=== PATIENT | female | born 1960 | race Caucasian/White ===

== ENCOUNTER 2016-06-11 21:54 | Emergency (ER) | payer OTHER ==
[~2016-06-11] VITALS: Ht 160 cm; Wt 54.8 kg
[~2016-06-11 21:54] MED LIST: ASCO500T3 PO; PRLSR20 PO; QUET1TAB32 PO; QUET1TAB37 PO
[2016-06-11 21:59] VITALS: O2SAT 97; Ht 160 cm; Wt 54.8 kg
[2016-06-11] MEDS ORDERED: SODIUM CHLORIDE 0.9% 1000ML 1,000 ML IV STA (22:36)
[2016-06-11 22:50] LABS: BASO % 0.4 %; BASO ABS # 0.04 K/uL (0-0.2); COMPLETE YES; EOS % 0.4 %; HEMATOCRIT 48.1 % (37-47); IG% 0.4 %; LYMPH % 26.7 %; LYMPH ABS # 3.04 K/uL (1.2-3.4); MEAN CELL VOLUME 88.7 fL (80-100); MEAN CORPUSCULAR HEMOGLOBIN 31.2 pg (25-34); MEAN CORPUSCULAR HGB CONC 35.1 g/dl (32-36); MEAN PLATELET VOLUME 12.6 fL (7.4-10.4); NEUT % 61.1 %; PLATELET COUNT 192 K/uL (130-400); RED BLOOD COUNT 5.42 M/uL (4.2-5.4); WHITE BLOOD COUNT 11.37 K/uL (4.8-10.8)
--- NOTE | 2016-06-11 23:03 | DIAGNOSTIC IMAGING REPORT ---
SINGLE VIEW CHEST CLINICAL HISTORY: Palpitations. FINDINGS: An AP, portable, upright chest radiograph is compared to study dated 04/22/2016 and correlated with chest CT dated 09/22/2015. The examination is degraded by portable technique and patient rotation. The cardiomediastinal silhouette is unremarkable. The lungs and pleural spaces are clear. No pneumothorax is seen. The skeletal structures appear osteopenic. The bony thorax is grossly intact. IMPRESSION: No active disease in the chest. Electronically signed by: Yung Aguilera M.D. 06/11/2016 11:01 PM Dictated Date/Time: 06/11/2016 11:00 PM
[2016-06-11 23:32] LABS: ALB/GLOB RATIO 0.9 (0.9-2); ALKALINE PHOSPHATASE 85 U/L (45-117); ALT/SGPT 69 U/L (12-78); BLOOD UREA NITROGEN 15 mg/dl (7-18); BUN/CREATININE RATIO 17.6 (10-20); CARBON DIOXIDE 29 mmol/L (21-32); CHLORIDE 102 mmol/L (98-107); CREATININE 0.85 mg/dl (0.60-1.20); GLUCOSE 93 mg/dl (70-99)
[2016-06-11 23:37] LABS: POTASSIUM 3.9 mmol/L (3.5-5.1); SODIUM 144 mmol/L (136-145)
[2016-06-11 23:57] LABS: AST/SGOT 71 U/L (15-37); MAGNESIUM 2.2 mg/dl (1.8-2.4)
[2016-06-12] MEDS ORDERED: SODIUM CHLORIDE 0.9% 500ML 500 ML IV STA ×2 (00:45→01:29)
[2016-06-12] MEDS ORDERED: hydrOXYzine HCL 25 MG TAB PO STA (01:01)
[2016-06-12 01:07] LABS: URINE APPEARANCE CLEAR (CLEAR); URINE BILIRUBIN NEG (NEG); URINE COLOR YELLOW; URINE NITRITE NEG (NEG); URINE PH 6.5 (4.5-7.5); UROBILINOGEN NEG (NEG); ZZUR CULT IF INDIC CLEAN CATCH NO
[2016-06-12 01:10] LABS: MANUAL MICROSCOPIC REQUIRED? NO; REVIEW REQ? NO
[2016-06-12 01:25] LABS: BENZODIAZEPINE, URINE NEG (NEG); COCAINE,URINE NEG (NEG); PHENCYCLIDINE, URINE NEG (NEG)
[2016-06-12] MEDS ORDERED: ANT25 PO (02:56)
--- NOTE | 2016-06-12 02:57 | EMERGENCY ROOM VISIT NOTE ---
History First contact with patient: 22:25 Chief Complaint: CHEST PAIN Stated Complaint: ANXIETY, CHEST PAIN Nursing Triage Summary: arrived via amb with als. pt states she was on ativan but was recently taken off of it. today smoked twice as many cigarettes as usual and had an " anxiety attack."denies cp or sob at present. History of Present Illness The patient is a 55 year old female who presents to the Emergency Department via EMS for evaluation of her palpitations and anxiety. The patient reports a long-standing history of anxiety. She was on Ativan for several years, but this medication was discontinued in March secondary to dependence issue. She reports that she is not been able to sleep since. She is tried multiple medications in replacement which have not been effective. She admits to drinking a few beers a few days ago, but denies any other drug or substance use. She reports that she has smoked cigarettes for the last few days which has caused palpitations. She is aware of this as it has happened before. She reports worsening anxiety this evening which seemed to worsen her palpitations as well. She is tried nothing [id number] for symptoms. She denies any suicidal or homicidal ideation. She rates her current discomfort as a 4/10. Patient denies any fevers, chills, recent illness, headaches, nausea, vomiting, hematuria, or dysuria. She does report that she had diarrhea earlier today after drinking milk. Review of Systems A complete 10-point Review of Systems was discussed with the patient, with pertinent positives and negatives listed in the History of Present Illness. All remaining Review of Systems questions can be considered negative unless otherwise specified. Past Medical/Surgical History Medical Problems: (1) Benzodiazepine withdrawal with complication (2) DVT (deep venous thrombosis) (3) Gastritis (4) H pylori ulcer (5) Irritable bowel syndrome (6) past psych meds (7) Seizure-like activity Surgical Problems: (1) History of cholecystectomy Family History Patient reports no known family medical history. Social History Smoking Status: Current Every Day Smoker Smokeless Tobacco Use: No Alcohol Use: occasionally Drug Use: none Marital Status: Housing Status: lives with family Occupation Status: employed Current/Historical Medications Scheduled Meclizine HCl (Meclizine HCl), 25 MG PO HS Allergies Coded Allergies: Trazodone (Verified Allergy, Severe, TACHYCARDIC, 06/11/16) Carbohydrate (Verified Allergy, Intermediate, MAKES HEART RACE, 05/06/16) Penicillins (Verified Allergy, Unknown, ., 05/06/16) Sulfa Antibiotics (Verified Allergy, Unknown, "SULFA DRUGS", 05/06/16) Codeine (Verified Adverse Reaction, Unknown, GI UPSET, 05/06/16) Uncoded Allergies: CIGARETTES (Allergy, Severe, SHORTNESS OF BREATH, 04/22/16) Physical Exam Vital Signs Date Time Temp Pulse Resp B/P Pulse Ox O2 Delivery O2 Flow Rate FiO2 06/12/16 02:59 36.8 100 15 115/68 95 06/12/16 02:48 100 15 115/68 95 Room Air 06/12/16 02:10 100 06/12/16 01:39 96 15 06/12/16 01:34 100 22 06/12/16 01:29 99 15 06/12/16 01:28 111/68 06/12/16 01:24 97 20 95 06/12/16 01:19 98 21 06/12/16 01:14 160 18 97 06/12/16 01:09 102 17 06/12/16 01:07 111/68 06/12/16 01:04 99 14 97 06/12/16 00:59 103 16 97 06/12/16 00:59 104 21 120/68 95 Room Air 06/12/16 00:54 110 14 94 06/12/16 00:44 102 23 06/12/16 00:39 100 21 06/12/16 00:34 101 21 06/12/16 00:29 102 21 121/67 95 06/12/16 00:24 102 21 06/12/16 00:19 101 22 06/12/16 00:14 101 21 06/12/16 00:09 99 22 06/12/16 00:04 100 19 06/11/16 23:59 100 23 06/11/16 23:54 98 22 06/11/16 23:49 101 22 06/11/16 23:44 100 21 06/11/16 23:39 103 15 81 06/11/16 23:34 100 20 97 06/11/16 23:29 102 21 97 06/11/16 23:24 103 22 97 06/11/16 23:19 100 14 98 06/11/16 23:14 98 13 99 06/11/16 23:09 104 18 94 06/11/16 23:04 106 16 99 06/11/16 22:59 103 22 96 06/11/16 22:54 106 12 94 06/11/16 22:49 104 12 95 06/11/16 22:44 105 14 96 06/11/16 22:39 102 17 96 06/11/16 22:34 104 14 98 06/11/16 22:29 106 20 96 06/11/16 22:24 106 16 95 06/11/16 22:19 108 21 97 06/11/16 22:14 105 14 96 06/11/16 22:09 105 16 95 06/11/16 22:04 97 Room Air 06/11/16 22:04 103 15 96 06/11/16 22:02 113 06/11/16 21:59 97 Room Air 06/11/16 21:59 120/68 06/11/16 21:59 36.8 108 20 120/68 97 Room Air Pain Rating (0-10): 4 Physical Exam VITAL SIGNS - Vital signs and nursing notes were reviewed. GENERAL - 55-year-old female appearing her stated age who is in no acute distress. Communicates well with provider and answers questions appropriately. HEAD - NC/AT. EYES - PERRL with EOMI bilaterally. Sclera anicteric. Palpebral conjunctiva pink and moist with no injection noted. EARS - No deformities of external structures noted on gross examination bilaterally. No pain elicited with palpation of the tragus bilaterally. External auditory canals without discharge or otorrhea. Tympanic membranes pearly meraz without retraction or bulging. NOSE - Midline and without cyanosis. No epistaxis or purulent drainage noted. Septum midline without deviation or septal hematoma noted. MOUTH/OROPHARYNX - Without perioral cyanosis. Buccal mucosa pink and moist and without leukoplakia. Tongue midline with equal elevation of palate bilaterally. No tonsillar hypertrophy, erythema, or exudates noted. Good dentition noted. NECK - Neck with FROM. Supple to palpation. LUNGS - Chest wall symmetric without accessory muscle use, intercostals retractions, or central cyanosis. Normal vesicular breath sounds CTA B/L. No wheezes, rales, or rhonchi appreciated. CARDIAC - RRR with S1/S2. No murmur, rubs, or gallops appreciated. No reproducible tenderness to palpation appreciated over the anterior chest wall. ABDOMEN - Abdominal contour flat and without pulsations or visible masses. BS normoactive all four quadrants. No tenderness, palpable masses, hepatosplenomegaly, or ascites noted. EXTREMITIES - No clubbing or peripheral cyanosis. No pretibial edema present. +3 /5 radial and dorsalis pedis pulses palpated throughout. +5/5 strength noted in UE/LE bilaterally. NEUROLOGIC - Cranial nerves II through XII grossly intact. Sensory intact to light touch throughout. PSYCH - A&Ox3 and cooperates fully with examiner. Patient appears fixated on discontinuation of her Ativan. She reports she's been unable to sleep. She denies any suicidal or homicidal ideations. She declines offers for Benadryl and Atarax to help with her symptoms. She reports that these medications do not work. Her rate and volume of speech is appropriate. She is not tangential. Medical Decision & Procedures ER Provider Diagnostic Interpretation: Radiological imaging and reports were reviewed by myself. Radiologist's Interpretation as follows: SINGLE VIEW CHEST CLINICAL HISTORY: Palpitations. FINDINGS: An AP, portable, upright chest radiograph is compared to study dated 04/22/2016 and correlated with chest CT dated 09/22/2015. The examination is degraded by portable technique and patient rotation. The cardiomediastinal silhouette is unremarkable. The lungs and pleural spaces are clear. No pneumothorax is seen. The skeletal structures appear osteopenic. The bony thorax is grossly intact. IMPRESSION: No active disease in the chest. Laboratory Results 06/11/16 21:30 Red Blood Count 5.42, Mean Corpuscular Volume 88.7, Mean Corpuscular Hemoglobin 31.2, Mean Corpuscular Hemoglobin Concent 35.1, Mean Platelet Volume 12.6, Neutrophils (%) (Auto) 61.1, Lymphocytes (%) (Auto) 26.7, Monocytes (%) (Auto) 11.0, Eosinophils (%) (Auto) 0.4, Basophils (%) (Auto) 0.4, Neutrophils # (Auto ) 6.96, Lymphocytes # (Auto) 3.04, Monocytes # (Auto) 1.25, Eosinophils # (Auto ) 0.04, Basophils # (Auto) 0.04 06/11/16 21:30 Test 06/11/16 21:30 06/12/16 00:55 06/12/16 01:43 06/12/16 01:50 White Blood Count 11.37 K/uL (4.8-10.8) Red Blood Count 5.42 M/uL (4.2-5.4) Hemoglobin 16.9 g/dL (12.0-16.0) Hematocrit 48.1 % (37-47) Mean Corpuscular Volume 88.7 fL (80-100) Mean Corpuscular Hemoglobin 31.2 pg (25-34) Mean Corpuscular Hemoglobin Concent 35.1 g/dl (32-36) Platelet Count 192 K/uL (130-400) Mean Platelet Volume 12.6 fL (7.4-10.4) Neutrophils (%) (Auto) 61.1 % Lymphocytes (%) (Auto) 26.7 % Monocytes (%) (Auto) 11.0 % Eosinophils (%) (Auto) 0.4 % Basophils (%) (Auto) 0.4 % Neutrophils # (Auto) 6.96 K/uL (1.4-6.5) Lymphocytes # (Auto) 3.04 K/uL (1.2-3.4) Monocytes # (Auto) 1.25 K/uL (0.11-0.59) Eosinophils # (Auto) 0.04 K/uL (0-0.5) Basophils # (Auto) 0.04 K/uL (0-0.2) RDW Standard Deviation 50.1 fL (36.4-46.3) RDW Coefficient of Variation 15.4 % (11.5-14.5) Immature Granulocyte % (Auto) 0.4 % Immature Granulocyte # (Auto) 0.04 K/uL (0.00-0.02) Anion Gap 13.0 mmol/L (3-11) Est Creatinine Clear Calc Drug Dose 60.4 ml/min Estimated GFR () 88.2 Estimated GFR (Non- 76.1 BUN/Creatinine Ratio 17.6 (10-20) Calcium Level 9.0 mg/dl (8.5-10.1) Magnesium Level 2.2 mg/dl (1.8-2.4) Total Bilirubin 0.8 mg/dl (0.2-1) Aspartate Amino Transf (AST/SGOT) 71 U/L (15-37) Alanine Aminotransferase (ALT/SGPT) 69 U/L (12-78) Alkaline Phosphatase 85 U/L (45-117) Creatine Kinase MB 11.7 ng/ml (0.5-3.6) Creatine Kinase MB Ratio (0-3.0) Total Protein 8.2 gm/dl (6.4-8.2) Albumin 3.8 gm/dl (3.4-5.0) Globulin 4.4 gm/dl (2.5-4.0) Albumin/Globulin Ratio 0.9 (0.9-2) Lipase 275 U/L (73-393) Thyroid Stimulating Hormone (TSH) 2.850 uIu/ml (0.300-4.500) Urine Color YELLOW Urine Appearance CLEAR (CLEAR) Urine pH 6.5 (4.5-7.5) Urine Specific [place] 1.010 (1.000-1.030) Urine Protein NEG (NEG) Urine Glucose (UA) NEG (NEG) Urine Ketones NEG (NEG) Urine Occult Blood NEG (NEG) Urine Nitrite NEG (NEG) Urine Bilirubin NEG (NEG) Urine Urobilinogen NEG (NEG) Urine Leukocyte Esterase TRACE (NEG) Urine WBC (Auto) 1-5 /hpf (0-5) Urine RBC (Auto) 0-4 /hpf (0-4) Urine Hyaline Casts (Auto) 1-5 /lpf (0-5) Urine Epithelial Cells (Auto) 5-10 /lpf (0-5) Urine Bacteria (Auto) NEG (NEG) Urine Opiates Screen NEG (NEG) Urine Methadone, Qualitative NEG (NEG) Urine Barbiturates NEG (NEG) Urine Phencyclidine (PCP) Level NEG (NEG) Ur Amphetamine/Methamphetamine NEG (NEG) MDMA (Ecstasy) Screen NEG (NEG) Urine Benzodiazepines Screen NEG (NEG) Urine Cocaine Metabolite NEG (NEG) Urine Marijuana (THC) NEG (NEG) Total Creatine Kinase 1086 U/L (26-192) Bedside Troponin I 0.000 ng/ml (0-0.045) Medications Administered Medications (Trade) Dose Ordered Sig/Rosalinda Route Start Time Stop Time Status Last Admin Dose Admin Sodium Chloride 1,000 ml @ 999 mls/hr Q1H1M STAT IV 06/11/16 22:36 06/11/16 23:36 DC 06/11/16 22:45 999 MLS/HR Sodium Chloride (Nss 500ml) 500 ml @ 999 mls/hr Q31M STAT IV 06/12/16 00:45 06/12/16 01:15 DC 06/12/16 00:57 999 MLS/HR Hydroxyzine HCl 25 mg 25 mg NOW STAT PO 06/12/16 01:01 06/12/16 01:02 DC 06/12/16 01:06 25 MG Sodium Chloride (Nss 500ml) 500 ml @ 999 mls/hr Q31M STAT IV 06/12/16 01:29 06/12/16 01:59 DC 06/12/16 01:33 999 MLS/HR Procedure Patient was placed on the attic fans mechanic and monitored throughout the entire extent of their stay. In addition, the patient's pulse oximetry was monitored throughout the entire stay. Any abnormalities or aberrancies were addressed appropriately. ECG Indication: chest pain Rate (beats per minute): 104 Rhythm: sinus tachycardia Findings: no acute ischemic change, no ectopy Change: no significant change (from 05/06/2016.) ED Course Patient was seen and evaluated by myself. Previous emergency department visit notes and hospitalizations were reviewed. Labs were drawn, saline lock in place. The patient was hydrated with a 1000 mL normal saline bolus. She declines any medication for anxiety at this point when offered Benadryl or Vistaril. Chest x-ray and EKG were obtained. Laboratory results demonstrate a mild leukocytosis. The patient is not anemic. There are no significant electrolyte abnormalities. Troponin was negative. CPK was mildly elevated at 2062. Patient was reevaluated and is complaining of some mild tightness in her chest. Repeat EKG was completely unremarkable. She was hydrated with an additional 1000 mL normal saline bolus. Repeat troponin and CPK levels were obtained. Case was reviewed with my attending physician who agrees with the diagnostic approach and treatment plan. The patient does admit to having diarrhea over the last 24 hours secondary to drinking milk. She denies any other substance use or illicit drug use. Patient's repeat troponin was negative again. Repeat CPK has decreased in half. This information was relayed to the patient who acknowledges understanding. She was provided Vistaril to be used at home for bed. She was encouraged to follow up with her primary care provider and psychiatrist from today's visit. She was educated on worrisome symptoms for return visit to the emergency department. Patient discharged home afebrile and in good condition. Medical Decision Given the patient's presentation and stated complaints, I did elect to perform the above-mentioned workup. The patient presents today complaining of palpitations as well as anxiety. She is been discontinued from her Ativan recently. She denies any suicidal or homicidal ideation. She has no fever leukocytosis. Her exam is otherwise unremarkable. She denies any chest pain initially. She does admit to having some diarrhea. She has a mild leukocytosis. She has no reproducible pain whatsoever. CPK was elevated which did respond after IV fluid hydration. Cardiac enzymes 2 were negative. She did receive Vistaril and was resting in the emergency department. She was actually sleeping for the majority of her visit. The patient was offered Vistaril for home which she takes except. She will follow-up with her psychiatrist and primary care provider from today's visit. She will return for any changing or worsening symptoms. Patient discharged home in good condition. In the evaluation and treatment of this patient, the following differential diagnoses were considered: [place], ASC, Dysrhythmia, Angina, Mediastinitis, GERD, Esophagitis, PE, Pneumonia, Bronchitis, Costochondritis, Rib Fracture, Zoster. Impression Primary Impression: Palpitations Additional Impression: Anxiety Departure Information Dispostion Home / Self-Care Condition GOOD Prescriptions Meclizine HCl (Meclizine HCl) 25 Mg Tab 25 MG PO HS for 7 Days, #7 0 Refills Prov: Jesus Meyer PA-C 06/12/16 Referrals Adarsh Ruiz III, CRNP (PCP) Patient Instructions My [facility] [address] Additional Instructions You have been treated in the Emergency Department for your palpitations and anxiety. For pain control, you can use the following [id number] medicines (if >12 yo): - Regular strength (325mg/tab) Tylenol (acetaminophen) 2 tabs every 4-6 hours as needed. Do not exceed 12 tablets in a 24 hour period. Avoid taking more than 4 grams (4000 mg) of Tylenol per day. This includes any other sources of acetaminophen you may take on a regular basis. - Regular strength (200 mg/tab) Advil (ibuprofen) 1-2 tabs every 4-6 hours as needed. Do not exceed a dose of 3200 mg per day. You should schedule a follow-up appointment with your Primary Care Provider in 2 -3 days for further evaluation from today's Emergency Department visit. Return to the Emergency Department if your current symptoms worsen despite treatment course outlined above, or if you develop any of the following symptoms : worsening chest pain, associated jaw/arm pain, nausea, dizziness, shortness of breath, bloody cough, or fainting. Problem Qualifiers
[2016-06-12 02:59] VITALS: BP 115/68; PULSE 100; TEMP 36.8; O2SAT 95
== END 2016-06-12 03:00 | disposition home or self-care (01) ==
LOC: EDBD 21:54 → C.EDC 21:55
DX: R00.2 Palpitations (principal); F17.210 Nicotine dependence, cigarettes, uncomplicated; F41.9 Anxiety disorder, unspecified

== ENCOUNTER 2016-06-12 12:04 | Emergency (ER) | payer OTHER ==
[~2016-06-12] VITALS: Ht 160 cm; Wt 50.0 kg
[~2016-06-12 12:04] MED LIST changes: +ANT25 PO
[2016-06-12 12:10] VITALS: TEMP 37; Ht 160 cm; Wt 50.0 kg
[2016-06-12 12:26] VITALS: O2SAT 96
[2016-06-12] MEDS ORDERED: CLONIDINE HCL 0.3 MG/24 HR TRANSDERM SYS TD STA (13:17)
[2016-06-12] MEDS ORDERED: NICOTINE 21 MG/24 HR TDSY TD STA (13:17)
[2016-06-12 13:24] LABS: BASO % 0.5 %; BASO ABS # 0.04 K/uL (0-0.2); COMPLETE YES; EOS % 0.8 %; HEMATOCRIT 43.6 % (37-47); IG% 0.5 %; LYMPH % 40.1 %; LYMPH ABS # 3.51 K/uL (1.2-3.4); MEAN CELL VOLUME 89.7 fL (80-100); MEAN CORPUSCULAR HEMOGLOBIN 30.5 pg (25-34); MEAN CORPUSCULAR HGB CONC 33.9 g/dl (32-36); MEAN PLATELET VOLUME 11.9 fL (7.4-10.4); MONO % 9.7 %; NEUT % 48.4 %; PLATELET COUNT 167 K/uL (130-400); RED BLOOD COUNT 4.86 M/uL (4.2-5.4); WHITE BLOOD COUNT 8.75 K/uL (4.8-10.8)
[2016-06-12] MEDS ORDERED: SODIUM CHLORIDE 0.9% 1000ML 1,000 ML IV STA (13:25)
[2016-06-12] MEDS ORDERED: DiphenhydrAMINE HCL 50 MG/ML VIAL IV STA (13:25)
[2016-06-12] MEDS ORDERED: NICOTINE POLACRILEX 2 MG GUM MT PRN (13:30)
[2016-06-12 13:32] LABS: ALT/SGPT 59 U/L (12-78); AST/SGOT 53 U/L (15-37); BLOOD UREA NITROGEN 10 mg/dl (7-18); BUN/CREATININE RATIO 11.8 (10-20); CALCIUM 8.1 mg/dl (8.5-10.1); CARBON DIOXIDE 25 mmol/L (21-32); CHLORIDE 110 mmol/L (98-107); CREATININE 0.81 mg/dl (0.60-1.20); GLUCOSE 80 mg/dl (70-99); POTASSIUM 3.8 mmol/L (3.5-5.1); SODIUM 144 mmol/L (136-145)
[2016-06-12 13:34] LABS: URINE APPEARANCE CLEAR (CLEAR); URINE BILIRUBIN NEG (NEG); URINE COLOR YELLOW; URINE NITRITE NEG (NEG); URINE SPECIFIC GRAVITY 1.017 (1.000-1.030); UROBILINOGEN NEG (NEG)
[2016-06-12 13:39] LABS: MANUAL MICROSCOPIC REQUIRED? NO; REVIEW REQ? NO
[2016-06-12 13:44] LABS: ALB/GLOB RATIO 0.9 (0.9-2); ALKALINE PHOSPHATASE 69 U/L (45-117)
[2016-06-12 13:54] LABS: BENZODIAZEPINE, URINE NEG (NEG); COCAINE,URINE NEG (NEG); PHENCYCLIDINE, URINE NEG (NEG)
[2016-06-12] MEDS ORDERED: hydrOXYzine HCL 25 MG TAB PO STA ×2 (14:50→20:08)
--- NOTE | 2016-06-12 18:59 | EMERGENCY ROOM VISIT NOTE ---
History Report prepared by Wilner: Joleen Amaya Under the Supervision of: Dr. Jamie Kolb M.D. First contact with patient: 12:50 Chief Complaint: OTHER COMPLAINT Stated Complaint: PALPITATIONS Nursing Triage Summary: Patient arrived via EMS with complaints of waking up this morning with palpitations and "uncontrolled shakes" per pt report. Was seen here yesterday in the ED for the same complaint and received 1mg of Ativan and was sent home. Patient is talking on phone to someone at this time, "I am not drug seeking, I am at the hospital, I can't smoke." Swearing multiple times on the phone. While she was talking on phone the shaking stopped. Denies pain, just complains of the palpitations. Patient was shaking uncontrollably on arrival and stated "just give me something for the shakes." Patient refused to take bra off while changing into gown. History of Present Illness The patient is a 55 year old female who presents to the Emergency Room for a mental health evaluation. The patient was seen in the ED yesterday for palpitations and shaking. She received 1 mg of Ativan and was discharged home. Today the patient reports that her symptoms have continued. She notes poor circulation in her legs but denies numbness or tingling. She has continued to experience shaking and "vibrations" in her legs. She is a current 2 PPD smoker. She has a history of depression and states that she feels depressed now. The patient does not currently take any medications for her depression. She was on Ativan in the past, but taken off of it in March due to dependency. The patient states that she wants to . She states, "I am not benzo seeking, I am seeking....I need counseling." She has had a suicidal plan in the past, but has never followed through or acted on it. 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 Review of Systems See HPI for pertinent positives & negatives. A total of 10 systems reviewed and were otherwise negative. Past Medical & Surgical Medical Problems: (1) Benzodiazepine withdrawal with complication (2) DVT (deep venous thrombosis) (3) Gastritis (4) H pylori ulcer (5) Irritable bowel syndrome (6) past psych meds (7) Seizure-like activity Surgical Problems: (1) History of cholecystectomy Family History Patient reports no known family medical history. Social History Smoking Status: Current Every Day Smoker Alcohol Use: occasionally Drug Use: none Marital Status: Housing Status: lives with family Occupation Status: employed Current/Historical Medications Scheduled Meclizine HCl (Meclizine HCl), 25 MG PO HS Allergies Coded Allergies: Trazodone (Verified Allergy, Severe, TACHYCARDIC, 06/12/16) Carbohydrate (Verified Allergy, Intermediate, MAKES HEART RACE, 06/12/16) Penicillins (Verified Allergy, Unknown, ., 06/12/16) Sulfa Antibiotics (Verified Allergy, Unknown, "SULFA DRUGS", 06/12/16) Codeine (Verified Adverse Reaction, Unknown, GI UPSET, 06/12/16) Uncoded Allergies: CIGARETTES (Allergy, Severe, SHORTNESS OF BREATH, 04/22/16) Physical Exam Vital Signs Date Time Temp Pulse Resp B/P Pulse Ox O2 Delivery O2 Flow Rate FiO2 06/12/16 19:18 116 18 129/90 100 Room Air 06/12/16 17:18 102 18 126/77 97 Room Air 06/12/16 16:54 99 06/12/16 15:17 96 18 126/77 99 Room Air 06/12/16 13:37 93 22 117/84 96 Room Air 06/12/16 12:26 96 Room Air 06/12/16 12:14 122 06/12/16 12:10 96 Room Air 06/12/16 12:10 37.0 105 20 106/70 96 Room Air Physical Exam GENERAL: Patient is a disheveled-appearing well-nourished 55 year old female. HEAD: Normocephalic atraumatic EYES: Ocular movements intact pupils equal and react to light OROPHARYNX mucous membranes are moist no exudates present no erythema or edema present NECK: Supple no nuchal rigidity CHEST: Good equal expansion LUNGS: Clear and equal to auscultation CARDIAC: Normal S1 and S2 ABDOMEN: Soft nontender no guarding BACK: No CVA tenderness EXTREMITIES: No pain upon palpation normal muscle strength in all groups no clubbing cyanosis or edema NEURO: Patient is following commands is answering questions appropriately. Alert and oriented x3 Cranial Nerves 2-12 grossly intact PSYCH: Admits to suicidal ideation. Medical Decision & Procedures Laboratory Results 06/12/16 11:32 Red Blood Count 4.86, Mean Corpuscular Volume 89.7, Mean Corpuscular Hemoglobin 30.5, Mean Corpuscular Hemoglobin Concent 33.9, Mean Platelet Volume 11.9, Neutrophils (%) (Auto) 48.4, Lymphocytes (%) (Auto) 40.1, Monocytes (%) (Auto) 9.7, Eosinophils (%) (Auto) 0.8, Basophils (%) (Auto) 0.5, Neutrophils # (Auto) 4.24, Lymphocytes # (Auto) 3.51, Monocytes # (Auto) 0.85, Eosinophils # (Auto) 0.07, Basophils # (Auto) 0.04 06/12/16 11:32 Test 06/12/16 11:32 06/12/16 12:17 06/12/16 13:45 06/12/16 13:53 White Blood Count 8.75 K/uL (4.8-10.8) Red Blood Count 4.86 M/uL (4.2-5.4) Hemoglobin 14.8 g/dL (12.0-16.0) Hematocrit 43.6 % (37-47) Mean Corpuscular Volume 89.7 fL (80-100) Mean Corpuscular Hemoglobin 30.5 pg (25-34) Mean Corpuscular Hemoglobin Concent 33.9 g/dl (32-36) Platelet Count 167 K/uL (130-400) Mean Platelet Volume 11.9 fL (7.4-10.4) Neutrophils (%) (Auto) 48.4 % Lymphocytes (%) (Auto) 40.1 % Monocytes (%) (Auto) 9.7 % Eosinophils (%) (Auto) 0.8 % Basophils (%) (Auto) 0.5 % Neutrophils # (Auto) 4.24 K/uL (1.4-6.5) Lymphocytes # (Auto) 3.51 K/uL (1.2-3.4) Monocytes # (Auto) 0.85 K/uL (0.11-0.59) Eosinophils # (Auto) 0.07 K/uL (0-0.5) Basophils # (Auto) 0.04 K/uL (0-0.2) RDW Standard Deviation 51.1 fL (36.4-46.3) RDW Coefficient of Variation 15.6 % (11.5-14.5) Immature Granulocyte % (Auto) 0.5 % Immature Granulocyte # (Auto) 0.04 K/uL (0.00-0.02) Anion Gap 9.0 mmol/L (3-11) Est Creatinine Clear Calc Drug Dose 60.5 ml/min Estimated GFR () 93.4 Estimated GFR (Non- 80.6 BUN/Creatinine Ratio 11.8 (10-20) Calcium Level 8.1 mg/dl (8.5-10.1) Total Bilirubin 1.0 mg/dl (0.2-1) Direct Bilirubin 0.2 mg/dl (0-0.2) Aspartate Amino Transf (AST/SGOT) 53 U/L (15-37) Alanine Aminotransferase (ALT/SGPT) 59 U/L (12-78) Alkaline Phosphatase 69 U/L (45-117) Troponin I < 0.015 ng/ml (0-0.045) Total Protein 6.6 gm/dl (6.4-8.2) Albumin 3.1 gm/dl (3.4-5.0) Globulin 3.5 gm/dl (2.5-4.0) Albumin/Globulin Ratio 0.9 (0.9-2) Thyroid Stimulating Hormone (TSH) 2.030 uIu/ml (0.300-4.500) Urine Color YELLOW Urine Appearance CLEAR (CLEAR) Urine pH 6.0 (4.5-7.5) Urine Specific [place] 1.017 (1.000-1.030) Urine Protein NEG (NEG) Urine Glucose (UA) NEG (NEG) Urine Ketones NEG (NEG) Urine Occult Blood NEG (NEG) Urine Nitrite NEG (NEG) Urine Bilirubin NEG (NEG) Urine Urobilinogen NEG (NEG) Urine Leukocyte Esterase NEG (NEG) Urine Opiates Screen NEG (NEG) Urine Methadone, Qualitative NEG (NEG) Urine Barbiturates NEG (NEG) Urine Phencyclidine (PCP) Level NEG (NEG) Ur Amphetamine/Methamphetamine NEG (NEG) MDMA (Ecstasy) Screen NEG (NEG) Urine Benzodiazepines Screen NEG (NEG) Urine Cocaine Metabolite NEG (NEG) Urine Marijuana (THC) NEG (NEG) Bedside Glucose 84 mg/dl (70-90) Ethyl Alcohol mg/dL < 3.0 mg/dl (0-3) Labs reviewed by ED physician. Medications Administered Medications (Trade) Dose Ordered Sig/Rosalinda Route Start Time Stop Time Status Last Admin Dose Admin Diphenhydramine HCl 50 mg 50 mg NOW STAT IV 06/12/16 13:25 06/12/16 13:28 DC 06/12/16 13:34 50 MG Sodium Chloride (Nss 1000ml) 1,000 ml @ 999 mls/hr Q1H1M STAT IV 06/12/16 13:25 06/12/16 14:25 DC 06/12/16 13:34 999 MLS/HR Hydroxyzine HCl (Vistaril Tab) 25 mg NOW STAT PO 06/12/16 14:50 06/12/16 14:51 DC 06/12/16 15:16 25 MG ECG Indication: palpitations Rate (beats per minute): 102 Rhythm: sinus tachycardia Findings: no acute ischemic change, no ectopy ED Course 1250: Past medical records reviewed. The patient was evaluated in room A2. A complete history and physical examination was performed. 1317: Nicotine 1 patch TD, Clonidine HCl 1 patch TD 1325: NSS 1000 ml @ 999 mls/hr IV, Benadryl 50 mg IV 1330: Nicotine Polacrilex 1 piece MT - PRN 1340: The patient is medically cleared. 1449: The patient refused to see the psychiatric liaison. 1450: Vistaril tab 25 mg PO 1615: The patient is complaining of palpitations. She wants a beta malik. She does not normally take a beta malik. 1802: The patient would like to call the police because she states that we are holding her against her will. 3: I filled out a 302 petition on the patient. Medical Decision Differential diagnosis: Etiologies such as mood disorder, infection, hypoglycemia, electrolyte abnormalities, cardiac sources, intracerebral event, toxicologic, neurologic, as well as others were entertained. This is a 55-year-old female who arrives to the emergency department complaining of anxiety as well as suicidal ideation. Upon arrival the patient is adamantly refusing benzos however she is requesting Benadryl. The patient states she is worried about palpitations however there are no palpitations on the monitor. I recommended that the patient receive normal saline bolus however she states she is allergic to saline. In addition the patient states that she can only eat cucumbers. She is demanding to speak with a counselor however when the psychiatric nurse liaison went to see the patient the patient refused to see her. I then went back and reinterviewed the patient who stated she would see the counselor again after she received some Vistaril. She was then seen by case management and stated that she had a plan to refer herself in front of traffic. At that point the patient again attempted to elope from the emergency department. She became uncooperative stating she would not be admitted. At this point I felt a 302 paperwork was warranted. This was filled out by case management & signed by me. Patient was signed out to Dr. Elizondo at change of shift. Impression Primary Impression: Mood disorder Additional Impression: Suicidal ideation Scribe Attestation The scribe's documentation has been prepared under my direction and personally reviewed by me in its entirety. I confirm that the note above accurately reflects all work, treatment, procedures, and medical decision making performed by me. Departure Information Dispostion Still a Patient Referrals Adarsh Ruiz III, CRNP (PCP) Patient Instructions My [facility] Problem Qualifiers
[2016-06-12 23:16] VITALS: BP 128/80; PULSE 70; O2SAT 98
--- NOTE | 2016-06-13 01:27 | EMERGENCY ROOM VISIT NOTE ---
ED Visit Note I received this patient in signout at the change of shift from Dr. Jamie Kolb at the change of shift, pending mental health evaluation placement. Patient was accepted to [facility] for inpatient mental health treatment on a 302 basis. Please refer to his documentation for further details.
== END 2016-06-12 23:17 | disposition short-term general hospital (02) ==
LOC: EDBD 12:04 → C.EDA 12:05
DX: F39 Unspecified mood [affective] disorder (principal); R45.851 Suicidal ideations; F17.210 Nicotine dependence, cigarettes, uncomplicated

== ENCOUNTER 2016-06-24 20:22 | Emergency (ER) | payer OTHER ==
[~2016-06-24] VITALS: Ht 160 cm; Wt 53.7 kg
[~2016-06-24 20:22] MED LIST changes: -ASCO500T3 PO; -PRLSR20 PO; -QUET1TAB32 PO; -QUET1TAB37 PO
[2016-06-24 20:31] VITALS: Ht 160 cm; Wt 53.7 kg
[2016-06-24] MEDS ORDERED: hydrOXYzine HCL 25 MG TAB PO STA (20:46)
[2016-06-24 21:10] LABS: BASO % 0.3 %; BASO ABS # 0.03 K/uL (0-0.2); COMPLETE YES; EOS % 0.4 %; IG% 0.5 %; LYMPH % 22.1 %; LYMPH ABS # 2.09 K/uL (1.2-3.4); MEAN CELL VOLUME 88.9 fL (80-100); MEAN CORPUSCULAR HEMOGLOBIN 30.7 pg (25-34); MEAN CORPUSCULAR HGB CONC 34.6 g/dl (32-36); MEAN PLATELET VOLUME 11.9 fL (7.4-10.4); MONO % 10.1 %; NEUT % 66.6 %; PLATELET COUNT 209 K/uL (130-400); WHITE BLOOD COUNT 9.44 K/uL (4.8-10.8)
[2016-06-24 21:20] LABS: URINE APPEARANCE CLEAR (CLEAR); URINE BILIRUBIN NEG (NEG); URINE COLOR YELLOW; URINE NITRITE NEG (NEG); UROBILINOGEN NEG (NEG)
[2016-06-24 21:25] LABS: MANUAL MICROSCOPIC REQUIRED? NO; REVIEW REQ? NO
[2016-06-24 21:29] LABS: ALT/SGPT 175 U/L (12-78); BLOOD UREA NITROGEN 12 mg/dl (7-18); BUN/CREATININE RATIO 14.3 (10-20); CALCIUM 9.1 mg/dl (8.5-10.1); CARBON DIOXIDE 26 mmol/L (21-32); CHLORIDE 107 mmol/L (98-107); CREATININE 0.86 mg/dl (0.60-1.20); GLUCOSE 94 mg/dl (70-99); MAGNESIUM 2.6 mg/dl (1.8-2.4); POTASSIUM 4.2 mmol/L (3.5-5.1); SODIUM 143 mmol/L (136-145)
[2016-06-24 21:36] LABS: BENZODIAZEPINE, URINE NEG (NEG); COCAINE,URINE NEG (NEG); PHENCYCLIDINE, URINE NEG (NEG)
[2016-06-24 21:38] LABS: ACETAMINOPHEN < 2 ug/ml (10-30)
[2016-06-24 21:40] LABS: ALKALINE PHOSPHATASE 85 U/L (45-117); AST/SGOT 96 U/L (15-37); CKMB/CK RATIO 0.7 (0-3.0)
--- NOTE | 2016-06-25 03:52 | EMERGENCY ROOM VISIT NOTE ---
History Report prepared by Wilner: Erica Mendoza Under the Supervision of: Dr. Avinash Lopez M.D. 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 The patient states that recently she has been nauseous, vomiting, along with some SOB and tightness in her chest which she says she gets with her anxiety. She also states that her legs also have been more restless as her anxiety is increased. The patient states that she was seen at [facility] recently and was there for 4-5 days for counseling. She states he had a prescription written for her but has not been taking the medications because she states she was taking them for a few days but they were not decreasing her anxiety. Pt denies LOC, headache, fevers, chills, diaphoresis, visual changes, neck pain, abdominal pain, back pain, melena, hematochezia, urinary symptoms, numbness, weakness, lymphadenopathy, rash, or other complaints. 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 Review of Systems See HPI for pertinent positives and negatives. A total of ten systems were reviewed and were otherwise negative. Past Medical & Surgical Medical Problems: (1) Benzodiazepine withdrawal with complication (2) DVT (deep venous thrombosis) (3) Gastritis (4) H pylori ulcer (5) Irritable bowel syndrome (6) past psych meds (7) Seizure-like activity Surgical Problems: (1) History of cholecystectomy Family History Patient reports no known family medical history. Social History Smoking Status: Never Smoker Alcohol Use: occasionally Drug Use: none Marital Status: Housing Status: lives with family Occupation Status: employed Current/Historical Medications No Active Prescriptions or Reported Meds Allergies Coded Allergies: Trazodone (Verified Allergy, Severe, TACHYCARDIC, 06/12/16) Carbohydrate (Verified Allergy, Intermediate, MAKES HEART RACE, 06/12/16) Penicillins (Verified Allergy, Unknown, ., 06/12/16) Sulfa Antibiotics (Verified Allergy, Unknown, "SULFA DRUGS", 06/12/16) Codeine (Verified Adverse Reaction, Unknown, GI UPSET, 06/12/16) Uncoded Allergies: CIGARETTES (Allergy, Severe, SHORTNESS OF BREATH, 04/22/16) Physical Exam Vital Signs Date Time Temp Pulse Resp B/P Pulse Ox O2 Delivery O2 Flow Rate FiO2 06/25/16 03:02 88 18 135/75 97 Room Air 06/24/16 22:30 94 18 125/74 96 Room Air 06/24/16 20:31 36.8 123 18 117/71 99 Room Air Physical Exam GENERAL: Awake, alert, anxious appearing, and somewhat restless. HENT: Normocephalic, atraumatic. TM's normal. Oropharynx unremarkable. EYES: PERRL. EOMI. Normal conjunctiva. Sclera non-icteric. NECK: Supple. No nuchal rigidity. FROM. No JVD or bruit. RESPIRATORY: CTA CARDIAC: Borderline tachycardic regular rhythm. No murmur. ABDOMEN: Soft, non distended. No tenderness to palpation. No rebound or guarding. No masses. MUSCULOSKELETAL: Unremarkable. No edema. No discoloration. Gross motor strength symmetric. NEURO: Cranial nerves 2-12 grossly intact. Normal sensorium. No sensory or motor deficits noted. Speech normal. No pronator drift. SKIN: No rash or jaundice noted. LYMPH: No adenopathy. PSYCH: anxious mood. No suicidal ideation. No homicidal ideation, poverty of speech. Medical Decision & Procedures Laboratory Results 06/24/16 21:00 Red Blood Count 5.40, Mean Corpuscular Volume 88.9, Mean Corpuscular Hemoglobin 30.7, Mean Corpuscular Hemoglobin Concent 34.6, Mean Platelet Volume 11.9, Neutrophils (%) (Auto) 66.6, Lymphocytes (%) (Auto) 22.1, Monocytes (%) (Auto) 10.1, Eosinophils (%) (Auto) 0.4, Basophils (%) (Auto) 0.3, Neutrophils # (Auto ) 6.28, Lymphocytes # (Auto) 2.09, Monocytes # (Auto) 0.95, Eosinophils # (Auto ) 0.04, Basophils # (Auto) 0.03 06/24/16 21:00 Test 06/24/16 21:00 06/24/16 21:05 White Blood Count 9.44 K/uL (4.8-10.8) Red Blood Count 5.40 M/uL (4.2-5.4) Hemoglobin 16.6 g/dL (12.0-16.0) Hematocrit 48.0 % (37-47) Mean Corpuscular Volume 88.9 fL (80-100) Mean Corpuscular Hemoglobin 30.7 pg (25-34) Mean Corpuscular Hemoglobin Concent 34.6 g/dl (32-36) Platelet Count 209 K/uL (130-400) Mean Platelet Volume 11.9 fL (7.4-10.4) Neutrophils (%) (Auto) 66.6 % Lymphocytes (%) (Auto) 22.1 % Monocytes (%) (Auto) 10.1 % Eosinophils (%) (Auto) 0.4 % Basophils (%) (Auto) 0.3 % Neutrophils # (Auto) 6.28 K/uL (1.4-6.5) Lymphocytes # (Auto) 2.09 K/uL (1.2-3.4) Monocytes # (Auto) 0.95 K/uL (0.11-0.59) Eosinophils # (Auto) 0.04 K/uL (0-0.5) Basophils # (Auto) 0.03 K/uL (0-0.2) RDW Standard Deviation 48.6 fL (36.4-46.3) RDW Coefficient of Variation 15.2 % (11.5-14.5) Immature Granulocyte % (Auto) 0.5 % Immature Granulocyte # (Auto) 0.05 K/uL (0.00-0.02) Anion Gap 10.0 mmol/L (3-11) Est Creatinine Clear Calc Drug Dose 59.7 ml/min Estimated GFR () 86.9 Estimated GFR (Non- 75.0 BUN/Creatinine Ratio 14.3 (10-20) Calcium Level 9.1 mg/dl (8.5-10.1) Magnesium Level 2.6 mg/dl (1.8-2.4) Total Bilirubin 0.7 mg/dl (0.2-1) Direct Bilirubin 0.2 mg/dl (0-0.2) Aspartate Amino Transf (AST/SGOT) 96 U/L (15-37) Alanine Aminotransferase (ALT/SGPT) 175 U/L (12-78) Alkaline Phosphatase 85 U/L (45-117) Total Creatine Kinase 135 U/L (26-192) Creatine Kinase MB 0.9 ng/ml (0.5-3.6) Creatine Kinase MB Ratio 0.7 (0-3.0) Troponin I < 0.015 ng/ml (0-0.045) Total Protein 7.7 gm/dl (6.4-8.2) Albumin 3.7 gm/dl (3.4-5.0) Thyroid Stimulating Hormone (TSH) 1.740 uIu/ml (0.300-4.500) Salicylates Level 2.6 mg/dl (2.8-20) Acetaminophen Level < 2 ug/ml (10-30) Ethyl Alcohol mg/dL < 3.0 mg/dl (0-3) Urine Color YELLOW Urine Appearance CLEAR (CLEAR) Urine pH 7.0 (4.5-7.5) Urine Specific [place] 1.000 (1.000-1.030) Urine Protein NEG (NEG) Urine Glucose (UA) NEG (NEG) Urine Ketones NEG (NEG) Urine Occult Blood NEG (NEG) Urine Nitrite NEG (NEG) Urine Bilirubin NEG (NEG) Urine Urobilinogen NEG (NEG) Urine Leukocyte Esterase TRACE (NEG) Urine WBC (Auto) 1-5 /hpf (0-5) Urine RBC (Auto) 0-4 /hpf (0-4) Urine Hyaline Casts (Auto) 0 /lpf (0-5) Urine Epithelial Cells (Auto) 5-10 /lpf (0-5) Urine Bacteria (Auto) NEG (NEG) Urine Opiates Screen NEG (NEG) Urine Methadone, Qualitative NEG (NEG) Urine Barbiturates NEG (NEG) Urine Phencyclidine (PCP) Level NEG (NEG) Ur Amphetamine/Methamphetamine NEG (NEG) MDMA (Ecstasy) Screen NEG (NEG) Urine Benzodiazepines Screen NEG (NEG) Urine Cocaine Metabolite NEG (NEG) Urine Marijuana (THC) NEG (NEG) Laboratory results reviewed by me Medications Administered Medications (Trade) Dose Ordered Sig/Rosalinda Route Start Time Stop Time Status Last Admin Dose Admin Hydroxyzine HCl (Vistaril Tab) 50 mg NOW STAT PO 06/24/16 20:46 06/24/16 20:49 DC 06/24/16 21:05 50 MG ECG Indication: other (anxiety) Rate (beats per minute): 106 Rhythm: sinus rhythm Findings: no acute ischemic change, no ectopy ED Course 2042: The patient was evaluated in room A11B. A complete history and physical exam was performed. 2045: Ordered Vistaril Tab 50 mg PO. 2224: I reevaluated the patient and she was feeling better and resting comfortably. I met with the patient's ex- and he states that the patient came to them around the new year and had a breakdown resulting in her admission to [facility]. He states that since her discharge she has been getting worse and not following any directions that she received and has been drinking alcohol, smoking cigarettes and doesn't believe she has been taking any medications. 5: I reevaluated the patient and she was resting comfortably. 0155: I reevaluated the patient and she was resting comfortably. The patient agreed to be assessed by a inpatient facility voluntarily. [facility] is bed searching. Medical Decision Triage Nursing notes reviewed. The patient's presentation and history were concerning for anxiety and mood issues. Etiologies such as mood disorder, toxicologic, infection, hypoglycemia, electrolyte abnormalities, cardiac sources, intracerebral event, neurologic, as well as others were entertained. The patient was evaluated. She was anxious. She was given oral Atarax. Blood work was obtained. On reassessment the patient was doing much better. She was resting comfortably. She was cooperative with inpatient treatment. I did meet with her who was concerned about her going home. The patient was not suicidal or homicidal however she was very anxious, almost manic and was not taking her medications. CBC and chemistry panel unremarkable. Cardiac markers and EKG were unremarkable. The patient's drug screen was unremarkable. LFTs were slightly elevated. She has had LFTs on numerous occasions that were elevated over normal. Today's elevation is slightly worse. The patient and ex- did note that she consumed a whole bottle of wine yesterday. The patient was evaluated by mental health. Bed search is currently underway. Her case was signed out to Dr. Covarrubias at the change of shift. The chart was completed utilizing [employer] Speech voice recognition software. Grammatical errors, random word insertions, pronoun errors, and incomplete sentences are an occasional consequence of this system due to software limitations, ambient noise, and hardware issues. Any formal questions or concerns about the content, text, or information contained within the body of this dictation should be directly addressed to the physician for clarification. Impression Primary Impression: Mood disorder Additional Impressions: Alcohol abuse Elevated LFTs Scribe Attestation The scribe's documentation has been prepared under my direction and personally reviewed by me in its entirety. I confirm that the note above accurately reflects all work, treatment, procedures, and medical decision making performed by me. Departure Information Dispostion Mental Health Acute Care Prescriptions No Active Prescriptions or Reported Meds Forms HOME CARE DOCUMENTATION FORM, IMPORTANT VISIT INFORMATION Patient Instructions My [facility] Problem Qualifiers
[2016-06-25] MEDS ORDERED: hydrOXYzine HCL 25 MG TAB PO STA (06:43)
--- NOTE | 2016-06-25 07:00 | EMERGENCY ROOM VISIT NOTE ---
ED Visit Note First contact with patient: 03:47 55 yr old female with mental health history who arrived yesterday evening with acute anxiety/nkechi due to stopping her medications. She wishes voluntary admission. Initially medically cleared and evaluated by Dr Carpenter who signed her out to me awaiting mental health placement. Patient without complaints though quite awake and walking around much of evening thus gave vistaril to help with sleep. Signed out to Dr Dominguez awaiting placement.
--- NOTE | 2016-06-25 15:36 | EMERGENCY ROOM VISIT NOTE ---
ED Visit Note First contact with patient: 09:33 Patient was signed out to me awaiting bed search on a 201. There has been 3 separate attempts to admit this patient to 3 separate events but had been declined. Our psychiatric hospice care transitions coordinator independently evaluated the patient and discussed with his units. They're noting that this patient does not meet admission criteria. Following this her hospice care transitions coordinator reevaluated the patient and is having can help reevaluated the patient as well to assess whether this patient needs inpatient treatment or can be discharged safely. To me on 2 separate evaluations patient has been resting comfortably. Just prior to sign out she denied any suicidal or homicidal ideations. Awaiting additional evaluation by our psychiatric hospice care transitions coordinator in combination with can help. Patient is resting comfortably and was signed out to Dr. Perez with a [address] at 3:20 PM.
--- NOTE | 2016-06-25 15:43 | EMERGENCY ROOM VISIT NOTE ---
ED Visit Note First contact with patient: 15:17 This patient was signed out to me by Dr. Dominguez pending reevaluation by mental health for possible discharge home. The patient was originally to be placed under a 201 for nkechi. The mental health caser did evaluate the patient here in the emergency department and discuss the case with me. She states that the patient has not been accepted by any facilities who feel that she does not meet criteria for placement. The patient will therefore be discharged home. I briefly talked to the patient who stated that she feels fine and wants to go to a friend's house. She is not manic or suicidal or homicidal. She does not feel she needs to be admitted to a psychiatric facility at this time. The patient was discharged for outpatient treatment.
[2016-06-25 16:50] VITALS: BP 127/83; PULSE 102; TEMP 36.8; O2SAT 99
== END 2016-06-25 16:53 | disposition home or self-care (01) ==
LOC: C.EDB 20:23 → C.EDA 06-25 16:53
DX: F39 Unspecified mood [affective] disorder (principal); F10.10 Alcohol abuse, uncomplicated; R94.5 Abnormal results of liver function studies; K58.9 Irritable bowel syndrome, unspecified; Z86.718 Personal history of other venous thrombosis and embolism

== ENCOUNTER 2016-06-25 20:42 | Inpatient (IN) | payer OTHER ==
[~2016-06-25] VITALS: Ht 160 cm; Wt 55.1 kg
[2016-06-25 22:19] LABS: MANUAL MICROSCOPIC REQUIRED? NO; REVIEW REQ? NO; URINE APPEARANCE TURBID (CLEAR); URINE BILIRUBIN NEG (NEG); URINE COLOR YELLOW; URINE NITRITE NEG (NEG); URINE SPECIFIC GRAVITY 1.008 (1.000-1.030); UROBILINOGEN NEG (NEG)
[2016-06-25] MEDS ORDERED: hydrOXYzine HCL 25 MG TAB PO STA (22:33)
[2016-06-25 22:39] LABS: BENZODIAZEPINE, URINE NEG (NEG); COCAINE,URINE NEG (NEG); PHENCYCLIDINE, URINE NEG (NEG)
[2016-06-25 23:18] LABS: BASO % 0.4 %; BASO ABS # 0.04 K/uL (0-0.2); COMPLETE YES; EOS % 0.4 %; HEMATOCRIT 43.8 % (37-47); IG% 0.3 %; LYMPH % 25.8 %; MEAN CELL VOLUME 90.7 fL (80-100); MEAN CORPUSCULAR HEMOGLOBIN 30.8 pg (25-34); MEAN PLATELET VOLUME 12.4 fL (7.4-10.4); MONO % 12.8 %; NEUT % 60.3 %; PLATELET COUNT 192 K/uL (130-400); RED BLOOD COUNT 4.83 M/uL (4.2-5.4); WHITE BLOOD COUNT 8.92 K/uL (4.8-10.8)
[2016-06-25 23:38] LABS: ALT/SGPT 135 U/L (12-78); AST/SGOT 63 U/L (15-37); BUN/CREATININE RATIO 24.4 (10-20); CALCIUM 8.9 mg/dl (8.5-10.1); CARBON DIOXIDE 30 mmol/L (21-32); CHLORIDE 109 mmol/L (98-107); CREATININE 0.77 mg/dl (0.60-1.20); GLUCOSE 97 mg/dl (70-99); POTASSIUM 4.2 mmol/L (3.5-5.1); SODIUM 148 mmol/L (136-145)
[2016-06-25 23:47] LABS: ACETAMINOPHEN < 2 ug/ml (10-30)
[2016-06-25 23:49] LABS: ALB/GLOB RATIO 0.8 (0.9-2); ALKALINE PHOSPHATASE 74 U/L (45-117)
[2016-06-26 00:17] LABS: BLOOD UREA NITROGEN 19 mg/dl (7-18)
[2016-06-26] MEDS ORDERED: hydrOXYzine HCL 25 MG TAB PO STA (03:34)
--- NOTE | 2016-06-26 03:34 | EMERGENCY ROOM VISIT NOTE ---
History Report prepared by Hoangibesa: Timmy Lorenzo Under the Supervision of: Dr. Avinash Lopez M.D. First contact with patient: 21:44 Chief Complaint: ABDOMINAL PAIN Stated Complaint: STOMACH PROBLEMS History of Present Illness The patient is a 55 year old female who presents to the Emergency Room after being discharged earlier in the day. Per patient's son, the patient left the hospital saying she was going to a friend's house. However, the patient's son was concerned and went to look for her at her old neighbor's house; however, the patient wasn't there. The patient's son looked for the patient for a few hours before filing a police report. They presented back to hospital and found out that she had taken a cab to the address of her old house, but was not there. Apparently, she took a taxi to this address and then had the fire truck driver drop her off at [facility]. The patient's son found the patient sitting outside [facility] three hours later smoking cigarettes. Per patient's son, the patient does not seem to be acting like herself and is not responding appropriately to his questions. He notes that yesterday she expressed suicidal ideation saying, "If you call the ambulance, I am going to kill myself." He notes that she has a history of suicide attempts. He notes that she recently stole money from him and spent it all. She also recently started drinking alcohol. Per Cloth Folder Hand and patient's son, the patient has been having increasing manic activity. She has been agitated and wandering and the son is concerned for her safety. The son was also holding her medications because he thought she might be abusing them after seeing her behavioral changes. Per casework specialist, she thinks that potentially holding the medications could be causing some of her symptoms. The patient was discharged from [facility] on Seroquel which they recommend she be put back on. The patient says, "My son is driving me crazy because he keeps bringing me back here. I'm fine." She notes that she had some abdominal discomfort earlier today because she ate cheese and soda which caused her to vomit. She notes that these symptoms have since resolved. The patient denies wandering and says she walks places to hang out with her friends. Pt denies LOC , headache, fevers, chills, diaphoresis, visual changes, neck pain, chest pain, breathing difficulties, nausea, vomiting, back pain, melena, hematochezia, urinary symptoms, numbness, weakness, lymphadenopathy, rash, or other complaints. son is driving her crazy Source of History: family Onset: today Position: other (global) Note: Other associated symptoms: not acting like herself, not responding to questions appropriately, expression of suicidal ideation, alcohol consumption. Review of Systems See HPI for pertinent positives and negatives. A total of ten systems were reviewed and were otherwise negative. Past Medical & Surgical Medical Problems: (1) Benzodiazepine withdrawal with complication (2) DVT (deep venous thrombosis) (3) Gastritis (4) H pylori ulcer (5) Irritable bowel syndrome (6) past psych meds (7) Seizure-like activity Surgical Problems: (1) History of cholecystectomy Family History Patient reports no known family medical history. Social History Smoking Status: Current Every Day Smoker Alcohol Use: occasionally Drug Use: none Marital Status: Housing Status: lives with family Occupation Status: employed Current/Historical Medications No Active Prescriptions or Reported Meds Allergies Coded Allergies: Trazodone (Verified Allergy, Severe, TACHYCARDIC, 06/25/16) Carbohydrate (Verified Allergy, Intermediate, MAKES HEART RACE, 06/25/16) Penicillins (Verified Allergy, Unknown, ., 06/25/16) Sulfa Antibiotics (Verified Allergy, Unknown, "SULFA DRUGS", 06/25/16) Codeine (Verified Adverse Reaction, Unknown, GI UPSET, 06/25/16) Uncoded Allergies: CIGARETTES (Allergy, Severe, SHORTNESS OF BREATH, 04/22/16) Physical Exam Vital Signs Date Time Temp Pulse Resp B/P Pulse Ox O2 Delivery O2 Flow Rate FiO2 06/25/16 23:17 97 16 99 Room Air 06/25/16 20:50 36.8 118 18 118/78 98 Room Air Physical Exam GENERAL: Awake, alert, well appearing, no distress HENT: Normocephalic, atraumatic. TM's normal. Oropharynx unremarkable. EYES: PERRL. EOMI. Normal conjunctiva. Sclera non-icteric. NECK: Supple. No nuchal rigidity. FROM. No JVD or bruit. RESPIRATORY: CTA CARDIAC: RRR. No murmur. ABDOMEN: Soft, non distended. No tenderness to palpation. No rebound or guarding. No masses. MUSCULOSKELETAL: Unremarkable. No edema. No discoloration. Gross motor strength symmetric. NEURO: Cranial nerves 2-12 grossly intact. Normal sensorium. No sensory or motor deficits noted. Speech normal. No pronator drift. SKIN: No rash or jaundice noted. LYMPH: No adenopathy. PSYCH: Anxious mood. No suicidal ideation. No homicidal ideation. Medical Decision & Procedures Laboratory Results 06/25/16 22:52 Red Blood Count 4.83, Mean Corpuscular Volume 90.7, Mean Corpuscular Hemoglobin 30.8, Mean Corpuscular Hemoglobin Concent 34.0, Mean Platelet Volume 12.4, Neutrophils (%) (Auto) 60.3, Lymphocytes (%) (Auto) 25.8, Monocytes (%) (Auto) 12.8, Eosinophils (%) (Auto) 0.4, Basophils (%) (Auto) 0.4, Neutrophils # (Auto ) 5.37, Lymphocytes # (Auto) 2.30, Monocytes # (Auto) 1.14, Eosinophils # (Auto ) 0.04, Basophils # (Auto) 0.04 06/25/16 22:52 Test 06/25/16 21:26 06/25/16 22:52 06/25/16 23:02 Urine Color YELLOW Urine Appearance TURBID (CLEAR) Urine pH 8.0 (4.5-7.5) Urine Specific [place] 1.008 (1.000-1.030) Urine Protein NEG (NEG) Urine Glucose (UA) NEG (NEG) Urine Ketones NEG (NEG) Urine Occult Blood NEG (NEG) Urine Nitrite NEG (NEG) Urine Bilirubin NEG (NEG) Urine Urobilinogen NEG (NEG) Urine Leukocyte Esterase TRACE (NEG) Urine WBC (Auto) 1-5 /hpf (0-5) Urine RBC (Auto) 0-4 /hpf (0-4) Urine Hyaline Casts (Auto) 0 /lpf (0-5) Urine Epithelial Cells (Auto) 10-20 /lpf (0-5) Urine Bacteria (Auto) NEG (NEG) Urine Opiates Screen NEG (NEG) Urine Methadone, Qualitative NEG (NEG) Urine Barbiturates NEG (NEG) Urine Phencyclidine (PCP) Level NEG (NEG) Ur Amphetamine/Methamphetamine NEG (NEG) MDMA (Ecstasy) Screen NEG (NEG) Urine Benzodiazepines Screen NEG (NEG) Urine Cocaine Metabolite NEG (NEG) Urine Marijuana (THC) NEG (NEG) White Blood Count 8.92 K/uL (4.8-10.8) Red Blood Count 4.83 M/uL (4.2-5.4) Hemoglobin 14.9 g/dL (12.0-16.0) Hematocrit 43.8 % (37-47) Mean Corpuscular Volume 90.7 fL (80-100) Mean Corpuscular Hemoglobin 30.8 pg (25-34) Mean Corpuscular Hemoglobin Concent 34.0 g/dl (32-36) Platelet Count 192 K/uL (130-400) Mean Platelet Volume 12.4 fL (7.4-10.4) Neutrophils (%) (Auto) 60.3 % Lymphocytes (%) (Auto) 25.8 % Monocytes (%) (Auto) 12.8 % Eosinophils (%) (Auto) 0.4 % Basophils (%) (Auto) 0.4 % Neutrophils # (Auto) 5.37 K/uL (1.4-6.5) Lymphocytes # (Auto) 2.30 K/uL (1.2-3.4) Monocytes # (Auto) 1.14 K/uL (0.11-0.59) Eosinophils # (Auto) 0.04 K/uL (0-0.5) Basophils # (Auto) 0.04 K/uL (0-0.2) RDW Standard Deviation 50.5 fL (36.4-46.3) RDW Coefficient of Variation 15.0 % (11.5-14.5) Immature Granulocyte % (Auto) 0.3 % Immature Granulocyte # (Auto) 0.03 K/uL (0.00-0.02) Anion Gap 9.0 mmol/L (3-11) Est Creatinine Clear Calc Drug Dose 66.7 ml/min Estimated GFR () 99.3 Estimated GFR (Non- 85.7 BUN/Creatinine Ratio 24.4 (10-20) Calcium Level 8.9 mg/dl (8.5-10.1) Total Bilirubin 0.4 mg/dl (0.2-1) Direct Bilirubin < 0.1 mg/dl (0-0.2) Aspartate Amino Transf (AST/SGOT) 63 U/L (15-37) Alanine Aminotransferase (ALT/SGPT) 135 U/L (12-78) Alkaline Phosphatase 74 U/L (45-117) Total Protein 6.8 gm/dl (6.4-8.2) Albumin 3.1 gm/dl (3.4-5.0) Globulin 3.7 gm/dl (2.5-4.0) Albumin/Globulin Ratio 0.8 (0.9-2) Thyroid Stimulating Hormone (TSH) 1.740 uIu/ml (0.300-4.500) Salicylates Level 2.3 mg/dl (2.8-20) Acetaminophen Level < 2 ug/ml (10-30) Ethyl Alcohol mg/dL < 3.0 mg/dl (0-3) Bedside Glucose 106 mg/dl (70-90) Laboratory results reviewed by me Medications Administered Medications (Trade) Dose Ordered Sig/Rosalinda Route Start Time Stop Time Status Last Admin Dose Admin Hydroxyzine HCl (Vistaril Tab) 50 mg NOW STAT PO 06/25/16 22:33 06/25/16 22:40 DC 06/25/16 23:04 50 MG ED Course 2202: The patient was evaluated in room A5. A complete history and physical exam was performed. 2233: Ordered Vistaril Tab 50 mg PO. 0124: At this time, I reevaluated the patient and she was willing to come in to the hospital for further evaluation. 0200: At this time, the patient was signed out to Dr. Covarrubias due to change of shift. Medical Decision Triage Nursing notes reviewed. The patient's presentation and history were concerning for anxiety and abdominal complaints. Etiologies such as mood disorder, toxicologic, infection, hypoglycemia, electrolyte abnormalities, cardiac sources, intracerebral event, neurologic, as well as others were entertained. The patient was evaluated. She noted her abdominal symptoms resolved. The patient had just left the emergency department. She was somewhat anxious. The patient was given Atarax. Her CBC was unremarkable. Chem panel revealed some minimal dehydration. The patient was taking oral fluids. Her AST and ALT were elevated but better than yesterday. TSH was negative. Tylenol, salicylate, and alcohol levels were negative. UA was negative. The [facility]. The patient was voluntary. I did discuss this with the patient and she was in agreement. The patient was given a second dose of hydroxyzine. The patient may be accepted to [facility]. but the process is under way. The case was signed out to Dr. Covarrubias at the change of shift. The chart was completed utilizing [employer] Speech voice recognition software. Grammatical errors, random word insertions, pronoun errors, and incomplete sentences are an occasional consequence of this system due to software limitations, ambient noise, and hardware issues. Any formal questions or concerns about the content, text, or information contained within the body of this dictation should be directly addressed to the physician for clarification. Impression Primary Impression: Mood disorder Scribe Attestation The scribe's documentation has been prepared under my direction and personally reviewed by me in its entirety. I confirm that the note above accurately reflects all work, treatment, procedures, and medical decision making performed by me. Departure Information Dispostion Still a Patient ( the patient was signed out to Dr. Covarrubias at this time due to change of shift) Prescriptions No Active Prescriptions or Reported Meds Referrals Adarsh Ruiz III, CRNP (PCP)
--- NOTE | 2016-06-26 08:05 | EMERGENCY ROOM VISIT NOTE ---
ED Visit Note First contact with patient: 03:37 55 yr old manic patient with worsening nkechi after getting home from multi day ED stay yesterday. She is again coming in voluntarily and awaiting bed placement. Medically cleared by Dr Lopez who signed her out to me pending bed placement.
[2016-06-26 13:25] VITALS: O2SAT 95
[2016-06-26] MEDS ORDERED: SODIUM CHLORIDE 0.65% NA SOLN 45 ML (OCEAN) PRN (15:30)
[2016-06-26] MEDS ORDERED: ALUMINUM/MAGNESIUM SUSP 30 ML UDC PO PRN (15:30)
[2016-06-26] MEDS ORDERED: hydrOXYzine HCL 25 MG TAB PO PRN (15:30)
[2016-06-26] MEDS ORDERED: ACETAMINOPHEN 325 MG TAB PO PRN (15:30)
[2016-06-26] MEDS ORDERED: BISMUTH SUBSALICYLATE PER ML OMNICELL CHARGE PO PRN (15:30)
[2016-06-26] MEDS ORDERED: MAGNESIUM HYDROXIDE SUSP 30 ML UDC PO PRN (15:30)
[2016-06-26 16:20] VITALS: BP 115/68; PULSE 92; TEMP 36.8; Ht 160 cm; Wt 55.1 kg
--- NOTE | 2016-06-26 18:41 | EMERGENCY ROOM VISIT NOTE ---
ED Visit Note First contact with patient: 07:29 I received this patient in signout the change of shift from Dr. Isauro Covarrubias. The patient was accepted on a 201 basis to [facility]. Please refer to previous documentation for further details of the history, physical and visit.
[2016-06-27 06:56] VITALS: BP_SYST 101; BP_SYST 98; BP_DIAS 64; BP_DIAS 76; PULSE 79; PULSE 81; TEMP 36.8
[2016-06-27] MEDS: NICOTINE 21 MG/24 HR TDSY TD SCH (08:36)
--- NOTE | 2016-06-27 11:58 | HISTORY & PHYSICAL EXAMINATION ---
DATE OF ADMISSION: 06/27/2016 IDENTIFYING INFORMATION: Berenice Navas is a 55-year-old white female who lives in [place], [place] with her son and ex- in her son's home has a history of benzodiazepine dependence, depression and anxiety and presented to the Emergency Room.
--- NOTE | 2016-06-27 13:07 | HISTORY & PHYSICAL EXAMINATION ---
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 continue to be willing to follow this and a plan cannot be set up with the family to limit her access to a vehicle. 5. Nicotine use disorder: The patient was educated about the risks of continued smoking. She is refusing further education about smoking cessation and is refusing nicotine replacement here. 6. The patient states she is planning to stay in [place] and has had difficulty switching her medical assistance from [place] to [place]. Perhaps the hospital social media marketing analyst can help her with this while here. She may also benefit from referral for an outpatient pillowcase folder, but again would need to switch to [place] medical assistance. [id number]. MTDD
[2016-06-28 07:04] VITALS: BP_SYST 108; BP_SYST 110; BP_DIAS 70; BP_DIAS 71; PULSE 80; PULSE 83; TEMP 36.4
[2016-06-28] MEDS: NICOTINE 21 MG/24 HR TDSY TD SCH (09:00)
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
[2016-06-28] MEDS: hydrOXYzine HCL 25 MG TAB PO PRN ×2 (21:17→22:37)
[2016-06-29 07:01] VITALS: BP_SYST 122; BP_SYST 125; BP_DIAS 75; BP_DIAS 79; PULSE 106; PULSE 92; TEMP 36.8
[2016-06-29] MEDS: NICOTINE 21 MG/24 HR TDSY TD SCH (08:56)
--- NOTE | 2016-06-29 09:52 | Psychiatric Progress Notes ---
Progress Note Date of Service Jun 29, 2016. Interval History Berenice Navas is a 55-year-old white female who has been going back and forth between [place] and her son and ex- in [place], [place], has a history of benzodiazepine abuse, depression, and anxiety, and was admitted voluntarily through the Emergency Room 06/26/2016 for altered mental status, confusion, and SI. She had been discharged earlier that day from the emergency room after she had a mental health assessment, agreed to voluntary admission, but then was declined by multiple facilities due to lack of admission criteria. Her son expressed concerns for her safety and disclosed that she made suicidal statements, which she admitted to. She ultimately signed in voluntarily, although there is a backup 302 petition from her son and Emergency Room staff. She initially refused recommendations for medications, family meeting, and outpatient follow up, and has submitted a request to withdrawal from treatment. She has now agreed to a meeting with her son, which is scheduled for this afternoon. Chief Complaint "When can I leave?" Subjective Patient was seen & assessed interval progress reviewed with Treatment Team. She is going to groups and participating. She signed an HARI to allow her son to be involved in treatment, but then added multiple topics she did not want discussed with him, including where she will go at discharge. A meeting is scheduled with his this afternoon. She says her mood is "fine" and wants to know when she can leave. Again reviewed all the things we've discussed as part of her treatment plan, including a plan to address her depression and anxiety ( she is still refusing medication, and had agreed to therapy, but have not been able to set that up due to her insurance issues and uncertainty about where she will live), a safety plan to address her SI (which she has not worked on), a plan for a safe place to live (she's changed her mind several times today about where she will go at discharge), a family meeting with her son to address his concerns about her mental health and behavior prior to admission, and follow up for her medical and cognitive issues. She is focused on leaving, repeatedly asking when she can go, and changing her plans several times throughout the course of the discussion. She says she needs to get her car inspected and then will drive back to [place], but when reminded of the multiple previous discussions we 've had about cognitive issues and that she is not medically stable to drive, she became angry and said "you're driving me nuts! I can drive!" [facility] and that she will need to have a medical workup for cognitive issues and be cleared by her physician to drive. She admits she did not follow up with neurology as recommended by her PCP in the past. She then says she will just live in a local intermediate, then says she is going to return to her son's house. She still has not addressed her insurance issue, which prevents her from seeing providers in [place]. She says none of her family in [place] could come and get her to take her there, but has a doctor in [place], Dr. Blandon, whom she plans to follow up with. She complains that she wants to be discharged immediately because she needs to get her hair and nails done and "I'm a mess." She denies feeling depressed and denies SI. When asked if she can further clarify the trigger for her SI prior to admission, she says "I guess I was just upset with my ex-, guess I was mich depressed." She cannot safety plan, saying she will just "not go back there," and when asked how she will handle SI should it recur, says "I don't know." Sleep Information Total Hours of Sleep: 6.00 Meal Information Percent of Breakfast Consumed: 75 Percent of Lunch Consumed: 100 Percent of Dinner Consumed: 75 Mental Status Exam During interview pt is: alert and oriented, cooperative (partially, but agitated when discussing discharge), other (gives conflicting reports, often vague, changes mind several times about where will live at discharge) Appearance: appropriately dressed (in pajamas), disheveled Eye contact is: fair Motor behavior is: steady gait & station, no abnormal motor movements Speech: normal in rate, rhythm & volume (angry tone at times) Affect: irritable (incongruent with stated mood) Mood is: other ("fine") Thought process: goal directed Thought content: preoccupation (with discharge), other (gives conflicting reports) Suicidal thought are: denied Homicidal thoughts are: denied Hallucinations: denies auditory, denies visual Cognition: attention grossly intact, language grossly intact, other (memory impaired as evidenced by inability to recall discussion held yesterday, getting lost on the unit) Intelligence estimated to be: average Insight: impaired Judgement: impaired Summary of Past History EVAN Caban has seen her at [facility] in the past - records reviewed, last seen 07/30/15 for insomnia. Had been living in [place] and getting Klonopin from a provider there, but thought it was causing GI upset and wanted a different medication (flurazepam). He prescribed Doxepin and ordered a UDS, telling her he would prescribe #30 days of Ativan if she passed it. She was instructed to follow up with her physician in [place]. Prior to that, he has seen her in 06/18/14, at which time she was going back and forth from [place] and [place] and said she was in the process of selling her home, , and moving to [place]. She was supposed to be taking Lexapro, but was not as she thought it was causing anorgasmia. She was taking Ativan 1mg 2-4 times a day, and was advised to follow up in [place] with her new doctor. Spoke with Adarsh Ruiz today to coordinate care. He states she has been informed he will not prescribe benzodiazepines for her, as she was getting benzodiazepines from multiple people, fairly large quantities, from providers in both [place] and [place]. He had noted cognitive impairment in the past and thought it was most likely due to intoxication/substance abuse. She had not followed through on care for her chronic hep C or recommendations for neurological workup. She is poorly compliant so has not had regular outpatient care. Medication Trials (1) Past Psych Meds Include but not limited to: 1. quetiapine (patient was on this during March 2016 psychiatric consultation) 2. paroxetine (this was stopped in March 2016 as the patient was refusing to take it) 3. many benzos including clonazepam, alprazolam, and lorazepam 4. Celexa, Prozac, Lexapro. The patient states that all antidepressants have been ineffective and caused GI upset. Last Edited By: Milagros Ann on Jun 28, 2016 12:55 Impression ASSESSMENT: Berenice Navas is a 55-year-old white female who has been going back and forth between [place] and [place] for years, most recently living at her son's home in [place], [place] with her son and ex-, has a history of depression, anxiety, memory problems, and substance abuse but is not currently in treatment and has had multiple contacts of care recently for substance abuse/ withdrawal, poorly controlled mood and anxiety, and suicidal ideation. She was recently hospitalized at [facility] but did not follow any treatment recommendations on discharge (did not take meds or follow up, and continued to abuse alcohol). Her son has expressed concerns about her safety at home, stating she has been confused, wandering and threatening suicide, and brought her to the hospital wanting her to be admitted. He completed a 302 petition as well. She is a limited historian and it is not forthcoming with information, but I strongly suspect that her altered mental status is occurring in the context of surreptitious substance abuse. She initially refused contact with family, but has now agreed to a meeting with her son, which will be this afternoon. She has submitted a 72 hour notice to withdraw from treatment, which will 06/30/16 at 21:02. DIAGNOSES: 1. Depression, not otherwise specified (rule out major depressive disorder versus substance induced depression), anxiety not otherwise specified by history. 2. Mild neurocognitive disorder with memory impairment (could be due to substances versus dementia versus depression). 3. Nicotine use disorder. 4. Benzodiazepine use disorder. 5. Increased liver function enzymes. 6. Alcohol use disorder. 7. Chronic untreated hepatitis C. Plan (1) Suicidal ideation 06/27 - suicide checks for safety - It would be very beneficial to get collateral information from her son and ex- in order to help clarify diagnosis and safety concerns. She is at this time refusing to sign a release to allow us to speak with them. Encouraged her to consider this advising her that it would be a big part of her discharge planning. She will not explain to me her hesitation in involving them , but at least agreed to consider signing a release so that we may speak with them. - Patient denies access to guns. - We should identify somebody to monitor and manage her medications so that she does not have access to them and so that they can determine compliance. - She should attend groups and work on healthy coping skills and a discharge safety plan. At this time, she is not even able to clearly identify the triggers that led to her suicidal statements but is able to contract for safety on the unit. - Would certainly recommend a family meeting with her son and ex- prior to discharge and she will need referrals for aftercare in her area. 2/2 - Denying SI here, but not able to safety plan. Discussed this concept today and encouraged her to work on her safety plan in preparation for discharge (2) Depression not otherwise specified 06/27 - We reviewed the patient's diagnosis and the recommended treatment, namely an antidepressant medication to target mood and anxiety. I recommended a trial of mirtazapine as she reports poor response and GI side effects to multiple SSRIs. Educated her about the risks and benefits of medication and she is refusing saying she does not want to take any medication, reviewed all treatment recommendations for depression and anxiety and she states she is willing to consider meeting with a therapist; however her insurance is a barrier and will need to be addressed. 2/2 - Continues to decline meds, denies feeling depressed here, but is irritable at times. No outpatient providers. Need to clarify where she will be living, so that outpatient therapy can be arranged. 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 This could be seen in the context of surreptitious substance abuse which is the most likely explanation but could also be early dementia. First step will be to try to get her off of substances that could be complicating the picture and to try to treat her depression. May consider referral for outpatient neurological workup if cognitive issues continue. I have instructed the patient that she is not medically cleared to drive until she has had a workup and cognitive abilities have been evaluated fully and she agrees. We may need to consider notifying the [place] Department [employer] as she does not continue to be willing to follow this and a plan cannot be set up with the family to limit her access to a vehicle. 2 - patient states she did not recall our conversation yesterday about her not driving until she is stable, and unwilling to involve family in safety planning. Will submit the psychiatric reporting for to [facility] [employer] per law, and again advised patient she is not medically stable to drive, and must be stable and undergo a medical evaluation to be cleared to drive. 2 - patient continues to state she will drive, will ask that family secure her vehicle so she does not have access. (4) Benzodiazepine abuse Long history of benzodiazepine abuse, with multiple hospitalizations for withdrawal and history of detox/rehab in [place]. She has been in our ER seeking benzos, and has gotten prescriptions from multiple providers in [place] and [place]. I strongly suspect that she is significantly under reporting her use given the information we have from her son that she has been sneaking out and going to bars and her own admission that she was drinking regularly and clear evidence of drug-seeking behavior at our facility and other hospitals locally. She should not be prescribed any controlled substances and should be encouraged to abstain from alcohol and any other drugs that may impact her cognitive abilities or lead to addiction. We will need to coordinate care with her outpatient providers including PCP Adarsh Ruiz. - done 06/28/16 [address] in [place] is Dr. Abiodun Almazan in [place] - get HARI to coordinate care and send records (5) Alcohol abuse Pt counseled about risks of alcohol use and recommendations for abstinence. See above (6) Nicotine abuse 06/27 - The patient was educated about the risks of continued smoking. She is refusing further education about smoking cessation and is refusing nicotine replacement here. (7) Gastritis F/u with PCP Discharge / Aftercare Planning Primary Care Physician: Name: Adarsh GORDON Psychiatrist: Name: uncertain Therapist: Name: uncertain Visit Code E&M Code: 30173 Risk Factors Assessment : Yes /single/: Yes Access to guns: No Health problems: Yes Mental Health Diagnoses: Yes Substance use disorders: Yes Previous attempt: Yes (pt denies, but son reports history of suicide attempts) Previous psychiatric stay: Yes Hopelessness: No Smoker: Yes Protective Factors Assessment : No Responsible for young children: No Employed: No Stable relationships: No Supportive family: Yes (but chaotic with strained relationships) Good rapport with provider: No (no outpatient providers) Data Vital Signs Last 24 Hrs: Date Time Temp Pulse Resp B/P Pulse Ox O2 Delivery O2 Flow Rate FiO2 06/29/16 07:01 36.8 92 16 125/79 106 122/75
[2016-06-29] MEDS: hydrOXYzine HCL 25 MG TAB PO PRN (21:25)
[2016-06-30 07:08] VITALS: BP_SYST 118; BP_SYST 125; BP_DIAS 78; BP_DIAS 81; PULSE 89; PULSE 90; TEMP 36.8
[2016-06-30] MEDS: NICOTINE 21 MG/24 HR TDSY TD SCH (08:46)
[2016-06-30] MEDS ORDERED: ATR25 PO (10:05)
--- NOTE | 2016-06-30 10:23 | Discharge Instructions ---
Discharge Information Report Includes Report will include the: Discharge Instructions & Summary Admission Admission Date / Time: Jun 26, 2016 at 15:24 Reason for Admission: Depression Discharge Discharge Diagnosis / Problem: depression Condition at Discharge: Good Discharge Goals Goal(s): Decrease discomfort, Improve disease control, Prevent Disease Progression Activity Recommendations Activity Limitations: resume your previous activity . Instructions / Follow-Up Instructions / Follow-Up . SPECIAL CARE INSTRUCTIONS: 1. Follow through with your scheduled aftercare appointments. If unable to keep an appointment, please call to reschedule. 2. Take your medication only as prescribed. Medication should not be changed or stopped without the approval of your doctor. In the event of worsening symptoms or concerns about side effects, contact your doctor immediately. 3. Utilize new healthy coping skills, anger management skills, and stress management skills learned during your hospitalization. Journal feelings and process them with a support person. Identify stressors or situations that may result in relapse, deterioration or inappropriate behaviors and develop a plan to deal with those issues. 4. If your coping skills are ineffective and you are in crisis, contact your outpatient providers for direction. If unable to reach your providers, please call the CAN HELP LINE AT or go to the closest Emergency Room. 5. Avoid alcohol and un-prescribed drugs. 6. You have been provided with the Mental Health Advance Directives Pamphlet for your review. AFTERCARE APPOINTMENTS: * Please call your insurance company prior to your scheduled appointment to confirm your aftercare providers are covered. Take your insurance information to your appointments. . Discharge / Aftercare Planning Primary Care Physician: Name: Adarsh GORDON Date of Appointment: Jul 05, 2016 Time of Appointment: 10:40 Appointment Notes: if you decide to go to [place] instead then call to cancel Psychiatrist: Name: Dr. Felix Appointment Notes: records faxed, fee without ins will be $150, call to schedule if interested Therapist: Name Of Therapist: damaris Ramp Agent: Name: Jaz ELENA Appointment Notes: call if you would like casemanagement services . Follow-Up Care Plan for Follow-Up Care: The patient refused medications during her stay but was willing to follow up with Isidro. Was provided his contact information and financial information for her consideration. Will have follow up with PCP. Current Hospital Diet Patient's current hospital diet: Regular Diet Discharge Diet Recommended Diet: Regular Diet Procedures Procedures Performed: No Pending Studies Pending Studies at Discharge: No Medical Emergencies . Who to Call and When: Medical Emergencies: For questions or emergencies related to your hospital stay, please contact the Inpatient Behavioral Health Unit at [phone]. A poultry offal icer is on-call 18/12 for the Behavioral Health Unit for emergencies At any time you feel your situation is an emergency, you may also call 911 immediately. . Non-Emergent Contact Non-Emergency issues call your: Primary Care Provider Advance Directives Existing Advance Directive: No Do You Have an Existing Mental: No Existing Living Will: No Existing Power of Silverware Buffer: No Advance Directives Info Given: To Pt/S.O. Discharge Summary Admission HPI Per the Admitting provider: Please see attached H&P Hospital Course (1) Suicidal ideation 06/27 - suicide checks for safety - It would be very beneficial to get collateral information from her son and ex- in order to help clarify diagnosis and safety concerns. She is at this time refusing to sign a release to allow us to speak with them. Encouraged her to consider this advising her that it would be a big part of her discharge planning. She will not explain to me her hesitation in involving them , but at least agreed to consider signing a release so that we may speak with them. - Patient denies access to guns. - We should identify somebody to monitor and manage her medications so that she does not have access to them and so that they can determine compliance. - She should attend groups and work on healthy coping skills and a discharge safety plan. At this time, she is not even able to clearly identify the triggers that led to her suicidal statements but is able to contract for safety on the unit. - Would certainly recommend a family meeting with her son and ex- prior to discharge and she will need referrals for aftercare in her area. 2/ - Denying SI here, but not able to safety plan. Discussed this concept today and encouraged her to work on her safety plan in preparation for discharge (2) Depression not otherwise specified 06/27 - We reviewed the patient's diagnosis and the recommended treatment, namely an antidepressant medication to target mood and anxiety. I recommended a trial of mirtazapine as she reports poor response and GI side effects to multiple SSRIs. Educated her about the risks and benefits of medication and she is refusing saying she does not want to take any medication, reviewed all treatment recommendations for depression and anxiety and she states she is willing to consider meeting with a therapist; however her insurance is a barrier and will need to be addressed. 2/2 - Continues to decline meds, denies feeling depressed here, but is irritable at times. No outpatient providers. Need to clarify where she will be living, so that outpatient therapy can be arranged. 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 This could be seen in the context of surreptitious substance abuse which is the most likely explanation but could also be early dementia. First step will be to try to get her off of substances that could be complicating the picture and to try to treat her depression. May consider referral for outpatient neurological workup if cognitive issues continue. I have instructed the patient that she is not medically cleared to drive until she has had a workup and cognitive abilities have been evaluated fully and she agrees. We may need to consider notifying the [place] Department of Transportation as she does not continue to be willing to follow this and a plan cannot be set up with the family to limit her access to a vehicle. 2/1 - patient states she did not recall our conversation yesterday about her not driving until she is stable, and unwilling to involve family in safety planning. Will submit the psychiatric reporting for to [employer] per law, and again advised patient she is not medically stable to drive, and must be stable and undergo a medical evaluation to be cleared to drive. 2/2 - patient continues to state she will drive, will ask that family secure her vehicle so she does not have access. (4) Benzodiazepine abuse Long history of benzodiazepine abuse, with multiple hospitalizations for withdrawal and history of detox/rehab in [place]. She has been in our ER seeking benzos, and has gotten prescriptions from multiple providers in [place] and [place]. I strongly suspect that she is significantly under reporting her use given the information we have from her son that she has been sneaking out and going to bars and her own admission that she was drinking regularly and clear evidence of drug-seeking behavior at our facility and other hospitals locally. She should not be prescribed any controlled substances and should be encouraged to abstain from alcohol and any other drugs that may impact her cognitive abilities or lead to addiction. We will need to coordinate care with her outpatient providers including PCP Adarsh Ruiz. - done 06/28/16 [address] in [place] is Dr. Abiodun Almazan in [place] - get HARI to coordinate care and send records (5) Alcohol abuse Pt counseled about risks of alcohol use and recommendations for abstinence. See above (6) Nicotine abuse 06/27 - The patient was educated about the risks of continued smoking. She is refusing further education about smoking cessation and is refusing nicotine replacement here. (7) Gastritis F/u with PCP Risk Factors Assessment : Yes /single/: Yes Access to guns: No Health problems: Yes Mental Health Diagnoses: Yes Substance use disorders: Yes Previous attempt: Yes (pt denies, but son reports history of suicide attempts) Previous psychiatric stay: Yes Hopelessness: No Smoker: Yes Protective Factors Assessment : No Responsible for young children: No Employed: No Stable relationships: No Supportive family: Yes (but chaotic with strained relationships) Good rapport with provider: No (no outpatient providers) Day of Discharge Assessment COURSE OF HOSPITALIZATION: During the patient's 4 day stay, she refused medications. She had initially been admitted because of concerns for her erratic behavior. She had just been discharged from [facility], had not taken her medications and was acting like a child. She had been to our emergency room, discharged to home because no beds were available, tried to avoid her family and lied to them about going to a friend's. Family was duly concerned and son even called police to fill out a 302 [address] warrant. She has a long history of benzodiazepine and alcohol abuse and has been known to be med seeking. After admission to our unit, the patient quickly retreated to her room and did not participate in programming. She rather quickly signed a 72 hour notice in wanting to withdraw from treatment. Family meeting was held with her son who was concerned about her behaviors and her past history of substance abuse. The patient repeatedly reassured him that that's "no longer a problem" although even while in [facility], she was seen to be medication seeking. Her son and encouraged her return to [place] to seek rehabilitation since her insurance is currently based in [place] although she refused this saying that she doesn't need it some structure no problem. Sun was also concerned about her taking off and not letting anybody know where she is going which the patient assured them she would not do. She will be having her ex- pick her up discharging will be going to his home in [place]. Son has heard car keys in the patient has been told repeatedly that the recommendation is that she not drive and the Department of Motor Vehicles form has been submitted. The patient did agree to follow-up with Dr. Felix, whose contact information has been provided. She does not have benefits in [place] at this time and this would need to be paid for in [place] until she is able to get Medicare. I recommendations consistently have been that the patient not have access to controlled substances including opiates, benzodiazepines. Contact has been made with her PCP, Adarsh GORDON, who is in agreement that he will provide no controlled substances. She has an appointment with him on July 05. Consideration had been given to an a.m. a discharge, however but in view of the fact she was willing to follow-up with psychiatry and her PCP, she will be discharged with our agreement. DAY OF DISCHARGE ASSESSMENT: Today the patient is requesting discharge. Her 72 hour notice expires this evening. She continues to deny any suicidal ideation, homicidal ideation or any evidence of thought disorder. She has continued not to participate in programming. She is agreeable to follow-up at the psychiatrist's office as well as her PCP. She denies anxiety today. She agrees that her ex- will pick her up and so she will have appropriate company at discharge. She agrees that she will not drive, and says that she will not go about getting benzodiazepines or alcohol saying "I don't want to do that anymore". Today she is casually and appropriately dressed and groomed. Eye contact is good. Gait and station are within normal limits. Affect is blunted. Speech is of normal rate volume and tone. Thoughts are organized and goal directed, And without evidence of thought disorder. Recent and remote memory are intact per conversation. Intelligence is estimated to be average. Insight and judgment are improved over admission. Laboratory 06/25/16 22:52 Red Blood Count 4.83, Mean Corpuscular Volume 90.7, Mean Corpuscular Hemoglobin 30.8, Mean Corpuscular Hemoglobin Concent 34.0, Mean Platelet Volume 12.4, Neutrophils (%) (Auto) 60.3, Lymphocytes (%) (Auto) 25.8, Monocytes (%) (Auto) 12.8, Eosinophils (%) (Auto) 0.4, Basophils (%) (Auto) 0.4, Neutrophils # (Auto ) 5.37, Lymphocytes # (Auto) 2.30, Monocytes # (Auto) 1.14, Eosinophils # (Auto ) 0.04, Basophils # (Auto) 0.04 06/25/16 22:52 Test 06/25/16 21:26 06/25/16 22:52 06/25/16 23:02 06/28/16 08:45 Urine Color YELLOW Urine Appearance TURBID (CLEAR) Urine pH 8.0 (4.5-7.5) Urine Specific [place] 1.008 (1.000-1.030) Urine Protein NEG (NEG) Urine Glucose (UA) NEG (NEG) Urine Ketones NEG (NEG) Urine Occult Blood NEG (NEG) Urine Nitrite NEG (NEG) Urine Bilirubin NEG (NEG) Urine Urobilinogen NEG (NEG) Urine Leukocyte Esterase TRACE (NEG) Urine WBC (Auto) 1-5 /hpf (0-5) Urine RBC (Auto) 0-4 /hpf (0-4) Urine Hyaline Casts (Auto) 0 /lpf (0-5) Urine Epithelial Cells (Auto) 10-20 /lpf (0-5) Urine Bacteria (Auto) NEG (NEG) Urine Opiates Screen NEG (NEG) Urine Methadone, Qualitative NEG (NEG) Urine Barbiturates NEG (NEG) Urine Phencyclidine (PCP) Level NEG (NEG) Ur Amphetamine/Methamphetamine NEG (NEG) MDMA (Ecstasy) Screen NEG (NEG) Urine Benzodiazepines Screen NEG (NEG) Urine Cocaine Metabolite NEG (NEG) Urine Marijuana (THC) NEG (NEG) White Blood Count 8.92 K/uL (4.8-10.8) Red Blood Count 4.83 M/uL (4.2-5.4) Hemoglobin 14.9 g/dL (12.0-16.0) Hematocrit 43.8 % (37-47) Mean Corpuscular Volume 90.7 fL (80-100) Mean Corpuscular Hemoglobin 30.8 pg (25-34) Mean Corpuscular Hemoglobin Concent 34.0 g/dl (32-36) Platelet Count 192 K/uL (130-400) Mean Platelet Volume 12.4 fL (7.4-10.4) Neutrophils (%) (Auto) 60.3 % Lymphocytes (%) (Auto) 25.8 % Monocytes (%) (Auto) 12.8 % Eosinophils (%) (Auto) 0.4 % Basophils (%) (Auto) 0.4 % Neutrophils # (Auto) 5.37 K/uL (1.4-6.5) Lymphocytes # (Auto) 2.30 K/uL (1.2-3.4) Monocytes # (Auto) 1.14 K/uL (0.11-0.59) Eosinophils # (Auto) 0.04 K/uL (0-0.5) Basophils # (Auto) 0.04 K/uL (0-0.2) RDW Standard Deviation 50.5 fL (36.4-46.3) RDW Coefficient of Variation 15.0 % (11.5-14.5) Immature Granulocyte % (Auto) 0.3 % Immature Granulocyte # (Auto) 0.03 K/uL (0.00-0.02) Anion Gap 9.0 mmol/L (3-11) Est Creatinine Clear Calc Drug Dose 66.7 ml/min Estimated GFR () 99.3 Estimated GFR (Non- 85.7 BUN/Creatinine Ratio 24.4 (10-20) Calcium Level 8.9 mg/dl (8.5-10.1) Globulin 3.7 gm/dl (2.5-4.0) Albumin/Globulin Ratio 0.8 (0.9-2) Thyroid Stimulating Hormone (TSH) 1.740 uIu/ml (0.300-4.500) Salicylates Level 2.3 mg/dl (2.8-20) Acetaminophen Level < 2 ug/ml (10-30) Ethyl Alcohol mg/dL < 3.0 mg/dl (0-3) Bedside Glucose 106 mg/dl (70-90) Total Bilirubin 0.8 mg/dl (0.2-1) Direct Bilirubin 0.2 mg/dl (0-0.2) Aspartate Amino Transf (AST/SGOT) 59 U/L (15-37) Alanine Aminotransferase (ALT/SGPT) 128 U/L (12-78) Alkaline Phosphatase 70 U/L (45-117) Total Protein 6.6 gm/dl (6.4-8.2) Albumin 2.9 gm/dl (3.4-5.0) Total Time Total Time Spent (min): Greater than 30 minutes Total Time Included: examination of the patient, discharge planning, medication reconciliation, communication with other providers Tobacco Cessation at Discharge FDA approved Prescription: patient refused
== END 2016-06-30 10:35 | disposition home or self-care (01) | DRG 881 ==
LOC: C.EDB 20:43 → C.MHU 06-26 15:24
PROVIDERS: ADMIT Psychiatry & Neurology Psychiatry; ATTEND Psychiatry & Neurology Psychiatry
DX: F32.9 Major depressive disorder, single episode, unspecified (principal); R45.851 Suicidal ideations; F13.20 Sedative, hypnotic or anxiolytic dependence, uncomplicated; G31.84 Mild cognitive impairment of uncertain or unknown etiology; F10.10 Alcohol abuse, uncomplicated; K29.70 Gastritis, unspecified, without bleeding; F17.210 Nicotine dependence, cigarettes, uncomplicated; Z86.718 Personal history of other venous thrombosis and embolism

== ENCOUNTER 2016-10-01 21:14 | Inpatient (IN) | payer OTHER ==
[~2016-10-01] VITALS: Ht 160 cm; Wt 66.2 kg
[~2016-10-01 21:14] MED LIST changes: -ANT25 PO; +ATR25 PO
[2016-10-01] MEDS ORDERED: SODIUM CHLORIDE 0.9% 1000ML 1,000 ML IV STA (21:39)
--- NOTE | 2016-10-01 22:03 | DIAGNOSTIC IMAGING REPORT ---
CHEST ONE VIEW PORTABLE CLINICAL HISTORY: Altered mental status. Overdose. COMPARISON STUDY: 06/11/2016 FINDINGS: The heart is normal in size. There is no failure. There is no lobar consolidation. Increased markings the right medial lung base, likely represent a summation. [ There are minimal basilar atelectatic changes. IMPRESSION: AP portable study. No acute findings. Electronically signed by: Ashok Collins M.D. 10/01/2016 10:02 PM Dictated Date/Time: 10/01/2016 10:01 PM
[2016-10-01] MEDS ORDERED: LORAZEPAM 2 MG/ML 1 ML VIAL ONE (22:07)
[2016-10-01 22:16] LABS: BASO % 0.1 %; BASO ABS # 0.01 K/uL (0-0.2); COMPLETE YES; HEMATOCRIT 43.2 % (37-47); IG% 0.1 %; LYMPH % 11.6 %; LYMPH ABS # 1.07 K/uL (1.2-3.4); MEAN CELL VOLUME 86.4 fL (80-100); MEAN CORPUSCULAR HEMOGLOBIN 28.8 pg (25-34); MEAN CORPUSCULAR HGB CONC 33.3 g/dl (32-36); MEAN PLATELET VOLUME 12.6 fL (7.4-10.4); MONO % 5.2 %; PLATELET COUNT 169 K/uL (130-400); WHITE BLOOD COUNT 9.19 K/uL (4.8-10.8)
--- NOTE | 2016-10-01 22:18 | EMERGENCY ROOM VISIT NOTE ---
History Report prepared by Wilner: Rober Contreras Under the Supervision of: Dr. Isauro Covarrubias M.D. First contact with patient: 21:32 Chief Complaint: OVERDOSE (INTENTIONAL) Stated Complaint: OVERDOSE ON MEDICATION History of Present Illness The patient is a 56 year old female who presents to the Emergency Room with complaints of an episode of an overdose just [employer]. Per nursing staff, the patient has an extensive psychiatric history and was seen inpatient in [place] 2 months ago. They note that the patient's father while she was inpatient and she was not able to attend his . Tonight the patient's found her on the floor surrounded by pills. Per nursing staff, the patient drank scotch and some cologne tonight. The patient's son denies any access to narcotics and notes that the patient attended catholic today with a friend and he was not with her. The patient reports that she took Ativan and Maalox tonight. Her son notes that she only takes Olanzapine, Famotidine, Benztropine, and Escitalopram. The patient was foaming at the mouth upon EMS arrival. The son denies any new cuts, blood on scene, and known trauma. He reports that she has attempted overdosing before and no one witnessed her overdose tonight. The HPI is limited secondary to overdose. Source of History: patient, family, nursing staff History Limited By: other (overdose) Onset: prior to arrival Position: other (global) Quality: other (overdose) Timing: other (episode) Note: The patient was foaming at the mouth upon EMS arrival. The son denies any new cuts, blood on scene, and known trauma. Review of Systems See HPI for pertinent positives & negatives. ROS limited secondary to overdose. Past Medical & Surgical Medical Problems: (1) Alcohol abuse (2) Benzodiazepine abuse (3) Benzodiazepine withdrawal with complication (4) Depression not otherwise specified (5) DVT (deep venous thrombosis) (6) Gastritis (7) H pylori ulcer (8) Irritable bowel syndrome (9) Mild neurocognitive disorder (10) Neurocognitive disorder (11) Nicotine abuse (12) past psych meds (13) Past Psych Meds (14) Seizure-like activity (15) Suicidal ideation Surgical Problems: (1) History of cholecystectomy Family History Patient reports no known family medical history. Social History Smoking Status: Former Smoker Alcohol Use: occasionally Drug Use: none Marital Status: Housing Status: lives with family Occupation Status: employed Current/Historical Medications Unable to Obtain Active Prescriptions or Reported Meds Allergies Coded Allergies: Trazodone (Verified Allergy, Severe, TACHYCARDIC, 06/25/16) Carbohydrate (Verified Allergy, Intermediate, MAKES HEART RACE, 06/25/16) Penicillins (Verified Allergy, Unknown, ., 06/25/16) Sulfa Antibiotics (Verified Allergy, Unknown, "SULFA DRUGS", 06/25/16) Codeine (Verified Adverse Reaction, Unknown, GI UPSET, 06/25/16) Physical Exam Vital Signs Date Time Temp Pulse Resp B/P Pulse Ox O2 Delivery O2 Flow Rate FiO2 10/02/16 01:06 92 10/02/16 01:00 109/71 10/02/16 00:45 92 18 97 Nasal Cannula 2.0 10/02/16 00:30 112/62 10/02/16 00:15 96 20 97 Nasal Cannula 2.0 10/02/16 00:00 102/55 10/01/16 23:45 94 20 97 Nasal Cannula 2.0 10/01/16 23:30 105/65 10/01/16 23:21 98 Nasal Cannula 2.0 10/01/16 23:15 88 18 98 Nasal Cannula 2.0 10/01/16 23:14 87 18 113/64 98 Nasal Cannula 2.0 10/01/16 21:29 36.4 103 22 133/90 93 Room Air 10/01/16 21:23 108 Physical Exam GENERAL: Patient is altered, anticholinergic, and agitated. HEENT: No acute trauma, normocephalic atraumatic, mucous membranes moist, no nasal congestion, no scleral icterus. NECK: No stridor, no adenopathy, no meningismus, trachea is midline. LUNGS: No dyspnea. Clear to auscultation and equal bilaterally. No wheeze, no rhonchi. HEART: Tachycardic rate and regular rhythm. No murmurs, rubs, gallops appreciated. ABDOMEN: Soft, nontender, bowel sounds positive, no masses appreciated, no peritonitis. BACK: No midline tenderness, no CVA tenderness EXTREMITIES: Normal motion all extremities, no cyanosis, no edema. Many healing lacerations on arms and legs bilaterally. NEUROLOGIC: No acute motor or sensory deficits, no focal weakness, cranial nerves grossly intact. The patient responds to name and responds with nonsensical verbiage. SKIN: No rash, no jaundice, no diaphoresis. Medical Decision & Procedures ER Provider Diagnostic Interpretation: Radiology results and stated below per my review and radiologist interpretation: CT HEAD WITHOUT CONTRAST (CT) FINDINGS: No intra or extra-axial mass lesions are visualized. There is no CT evidence of acute cortical infarction. There is no evidence of midline shift. There is no acute hemorrhage. No calvarial fractures are visualized. There is no evidence of pathologic ventricular dilatation. There is no evidence of acute sinusitis IMPRESSION: No acute intracranial findings Electronically signed by: Ashok Collins M.D. 10/01/2016 10:37 PM Dictated Date/Time: 10/01/2016 10:36 PM CHEST ONE VIEW PORTABLE FINDINGS: The heart is normal in size. There is no failure. There is no lobar consolidation. Increased markings the right medial lung base, likely represent a summation. [ There are minimal basilar atelectatic changes. IMPRESSION: AP portable study. No acute findings. Electronically signed by: Ashok Collins M.D. 10/01/2016 10:02 PM Dictated Date/Time: 10/01/2016 10:01 PM Laboratory Results 10/01/16 22:00 Red Blood Count 5.00, Mean Corpuscular Volume 86.4, Mean Corpuscular Hemoglobin 28.8, Mean Corpuscular Hemoglobin Concent 33.3, Mean Platelet Volume 12.6, Neutrophils (%) (Auto) 83.0, Lymphocytes (%) (Auto) 11.6, Monocytes (%) (Auto) 5.2, Eosinophils (%) (Auto) 0.0, Basophils (%) (Auto) 0.1, Neutrophils # (Auto) 7.62, Lymphocytes # (Auto) 1.07, Monocytes # (Auto) 0.48, Eosinophils # (Auto) 0.00, Basophils # (Auto) 0.01 10/01/16 22:00 Test 10/01/16 22:00 10/01/16 22:24 White Blood Count 9.19 K/uL (4.8-10.8) Red Blood Count 5.00 M/uL (4.2-5.4) Hemoglobin 14.4 g/dL (12.0-16.0) Hematocrit 43.2 % (37-47) Mean Corpuscular Volume 86.4 fL (80-100) Mean Corpuscular Hemoglobin 28.8 pg (25-34) Mean Corpuscular Hemoglobin Concent 33.3 g/dl (32-36) Platelet Count 169 K/uL (130-400) Mean Platelet Volume 12.6 fL (7.4-10.4) Neutrophils (%) (Auto) 83.0 % Lymphocytes (%) (Auto) 11.6 % Monocytes (%) (Auto) 5.2 % Eosinophils (%) (Auto) 0.0 % Basophils (%) (Auto) 0.1 % Neutrophils # (Auto) 7.62 K/uL (1.4-6.5) Lymphocytes # (Auto) 1.07 K/uL (1.2-3.4) Monocytes # (Auto) 0.48 K/uL (0.11-0.59) Eosinophils # (Auto) 0.00 K/uL (0-0.5) Basophils # (Auto) 0.01 K/uL (0-0.2) RDW Standard Deviation 43.1 fL (36.4-46.3) RDW Coefficient of Variation 13.7 % (11.5-14.5) Immature Granulocyte % (Auto) 0.1 % Immature Granulocyte # (Auto) 0.01 K/uL (0.00-0.02) Anion Gap 11.0 mmol/L (3-11) Est Creatinine Clear Calc Drug Dose 70.5 ml/min Estimated GFR () 103.5 Estimated GFR (Non- 89.3 BUN/Creatinine Ratio 15.4 (10-20) Osmolality 293 mOsm/kg (280-300) Calcium Level 9.6 mg/dl (8.5-10.1) Total Bilirubin 0.5 mg/dl (0.2-1) Aspartate Amino Transf (AST/SGOT) 37 U/L (15-37) Alanine Aminotransferase (ALT/SGPT) 59 U/L (12-78) Alkaline Phosphatase 84 U/L (45-117) Total Protein 7.8 gm/dl (6.4-8.2) Albumin 3.9 gm/dl (3.4-5.0) Globulin 3.9 gm/dl (2.5-4.0) Albumin/Globulin Ratio 1.0 (0.9-2) Thyroid Stimulating Hormone (TSH) 2.400 uIu/ml (0.300-4.500) Salicylates Level < 1.7 mg/dl (2.8-20) Acetaminophen Level < 2 ug/ml (10-30) Ethyl Alcohol mg/dL < 3.0 mg/dl (0-3) Urine Color YELLOW Urine Appearance CLEAR (CLEAR) Urine pH 5.5 (4.5-7.5) Urine Specific [place] 1.014 (1.000-1.030) Urine Protein NEG (NEG) Urine Glucose (UA) NEG (NEG) Urine Ketones NEG (NEG) Urine Occult Blood NEG (NEG) Urine Nitrite NEG (NEG) Urine Bilirubin NEG (NEG) Urine Urobilinogen NEG (NEG) Urine Leukocyte Esterase SMALL (NEG) Urine WBC (Auto) 5-10 /hpf (0-5) Urine RBC (Auto) 0-4 /hpf (0-4) Urine Hyaline Casts (Auto) 0 /lpf (0-5) Urine Epithelial Cells (Auto) 10-20 /lpf (0-5) Urine Bacteria (Auto) NEG (NEG) Urine Opiates Screen NEG (NEG) Urine Methadone, Qualitative NEG (NEG) Urine Barbiturates NEG (NEG) Urine Phencyclidine (PCP) Level NEG (NEG) Ur Amphetamine/Methamphetamine NEG (NEG) MDMA (Ecstasy) Screen NEG (NEG) Urine Benzodiazepines Screen NEG (NEG) Urine Cocaine Metabolite NEG (NEG) Urine Marijuana (THC) NEG (NEG) Laboratory results as reviewed by me. Medications Administered Medications (Trade) Dose Ordered Sig/Rosalinda Route Start Time Stop Time Status Last Admin Dose Admin Sodium Chloride (Nss 1000ml) 1,000 ml @ 999 mls/hr Q1H1M STAT IV 10/01/16 21:39 10/01/16 22:39 DC 10/01/16 22:17 999 MLS/HR Lorazepam (Ativan Inj) 2 mg STK-MED ONCE .ROUTE 10/01/16 22:07 10/01/16 22:08 DC 10/01/16 22:25 2 MG ECG Indication: toxicologic Rate (beats per minute): 99 Rhythm: normal sinus Findings: no acute ischemic change, no ectopy, other (Normal QTC) ED Course 2131: The patient was evaluated in room A2. A complete history and physical exam was performed. 2138: Sodium Chloride 1000 ml @ 999 mls/hr IV. 7: Ativan Inj 2mg IV. 220: Per nursing staff the patient has become combative and she was given Ativan. 2210: I reevaluated the patient and she is still being combative. Security is required to restrain her. 2243: I reevaluated the patient. She is somnolent, sleeping, and in no further agitation. 2345: Discussed the patient's [place] [facility] The patient will be evaluated for further treatment and disposition. 2350: Upon reevaluation, the patient is doing well. Discussed results and treatment plan with the patient. She verbalized understanding and agreement with the treatment plan. The patient will be evaluated for further management. Medical Decision Differential: Suicide Attempt, Mood Disorder, Poisoning, Medication OD, Narcotic OD, Tylenol OD, Salicylated OD, Prolonged QTc, Metabolic/Electrolyte imbalance, Trauma, Rhabdo, Infectious, amongst other pathologies entertained. 56 yr old female arrives with complaint of altered mental status after being found by son confused/altered at home surrounded by her multiple empty medication bottles. Multiple psychiatric medications possible. She examines like anticholinergic OD. No indication for charcoal. Tyl/Sam negative, EKG with normal QTC. Given Ativan/Fluids with calming down and improvement in HR. CT head/cxr negative. Labs otherwise unremarkable. Drug urine negative. Closely monitored. Given polysubstance OD of multiple dangerous medications she will need further medical clearance before full psych evaluation. Consults Time Called: [phone] Consulting Physician: Dr. Hardin, [facility] Returned Call: [phone] Discussed the patient's case. The patient will be evaluated for further treatment and disposition. Impression Primary Impression: Multiple drug overdose Additional Impressions: Anticholinergic drug overdose Altered mental status Critical Care I have personally spent greater than 35 minutes of critical care time in the direct management of this patient. This was a life/limb threatening event. This includes time spent evaluating patient, direct bedside care, chart review, placing orders, interpretation of diagnostic studies, discussion with consultants, patient, and family members, as well as other required patient management activities. This 35 minutes is in excess of all separately billable procedures. Scribe Attestation The scribe's documentation has been prepared under my direction and personally reviewed by me in its entirety. I confirm that the note above accurately reflects all work, treatment, procedures, and medical decision making performed by me. Departure Information Dispostion Being Evaluated By Hospitalist Prescriptions Unable to Obtain Active Prescriptions or Reported Meds Referrals No Doctor, Assigned (PCP) Forms HOME CARE DOCUMENTATION FORM, IMPORTANT VISIT INFORMATION, WORK / SCHOOL INSTRUCTIONS Patient Instructions My [facility] Health Problem Qualifiers Primary Impression: Multiple drug overdose Encounter type: initial encounter Injury intent: intentional self-harm Qualified Codes: T50.902A - Poisoning by unspecified drugs, medicaments and biological substances, intentional self-harm, initial encounter Additional Impressions: Anticholinergic drug overdose Encounter type: initial encounter Injury intent: intentional self-harm Qualified Codes: T44.3X2A - Poisoning by other parasympatholytics [ anticholinergics and antimuscarinics] and spasmolytics, intentional self-harm, initial encounter Altered mental status Altered mental status type: disorientation Qualified Codes: R41.0 - Disorientation, unspecified
[2016-10-01 22:33] LABS: BUN/CREATININE RATIO 15.4 (10-20); CREATININE 0.74 mg/dl (0.60-1.20); POTASSIUM 4.1 mmol/L (3.5-5.1)
[2016-10-01 22:37] LABS: CALCIUM 9.6 mg/dl (8.5-10.1)
--- NOTE | 2016-10-01 22:38 | DIAGNOSTIC IMAGING REPORT ---
CT HEAD WITHOUT CONTRAST (CT) CLINICAL HISTORY: Acute change in mental status. Overdose. COMPARISON STUDY: 09/22/2015 TECHNIQUE: Axial CT of the brain is performed from the vertex to the skull base. IV contrast was not administered for this examination. CT DOSE: 537.48 mGy.cm FINDINGS: No intra or extra-axial mass lesions are visualized. There is no CT evidence of acute cortical infarction. There is no evidence of midline shift. There is no acute hemorrhage. No calvarial fractures are visualized. There is no evidence of pathologic ventricular dilatation. There is no evidence of acute sinusitis IMPRESSION: No acute intracranial findings Electronically signed by: Ashok Collins M.D. 10/01/2016 10:37 PM Dictated Date/Time: 10/01/2016 10:36 PM
[2016-10-01 22:43] LABS: THYROID STIMULATING HORMONE 2.4 uIu/ml (0.300-4.500)
[2016-10-01 22:46] LABS: MANUAL MICROSCOPIC REQUIRED? NO; REVIEW REQ? NO; URINE APPEARANCE CLEAR (CLEAR); URINE BILIRUBIN NEG (NEG); URINE COLOR YELLOW; URINE NITRITE NEG (NEG); URINE PH 5.5 (4.5-7.5); URINE SPECIFIC GRAVITY 1.014 (1.000-1.030); UROBILINOGEN NEG (NEG); ZZUR CULT IF INDIC CLEAN CATCH NO
[2016-10-01 23:19] LABS: ACETAMINOPHEN < 2 ug/ml (10-30)
[2016-10-01 23:21] LABS: BENZODIAZEPINE, URINE NEG (NEG); COCAINE,URINE NEG (NEG); PHENCYCLIDINE, URINE NEG (NEG)
[2016-10-02] MEDS ORDERED: LORAZEPAM 2 MG/ML 1 ML VIAL IV PRN ×2 (02:15→03:30)
[2016-10-02] MEDS ORDERED: ONDANSETRON INJ 2 MG/ML 2 ML VIAL IV PRN (02:15)
[2016-10-02 03:01] VITALS: BP 136/79; PULSE 87; TEMP 36.9; O2SAT 99; Ht 160 cm; Wt 66.2 kg
[2016-10-02] MEDS: SODIUM CHLORIDE 0.9% 1000ML 1,000 ML IV SCH ×3 (03:09→20:08)
[2016-10-02 06:38] LABS: INR 0.9 (0.9-1.1); PROTHROMBIN TIME (PATIENT) 10.1 SECONDS (9.0-12.0)
--- NOTE | 2016-10-02 07:13 | History and Physical ---
History & Physical Date & Time of Service: October 02, 2016 at 02:06. The patient was examined on October 01, 2016 Chief Complaint: Overdose On Medication Primary Care Physician: No Doctor, Assigned History of Present Illness Source: hospital records Mrs Navas is a 57 year old female who presents to the ER after being found by her on the floor surrounded by pills. She also reportedly drank scotch and some cologne. In the ER she was noted to be very agitated so was given lorazepam. Her son notes that she only takes Olanzapine, Famotidine, Benztropine , and Escitalopram. She was most recently admitted to the psychiatric issa under Dr Ann for suicidal ideation and depression. She is known to abuse benzodiazepines by feigning tremors and repeatedly asking for benzodiazepines. She has not been compliant with her antidepressants and antipsychotics in the past. Patient when seen was unable to wake to voice or pain. GCS 7 (E1, V1, M5). Pupils were dilated and sluggish. Past Medical/Surgical History Medical Problems: (1) Benzodiazepine withdrawal with complication Status: Resolved (2) DVT (deep venous thrombosis) Status: Resolved (3) Gastritis Status: Chronic (4) H pylori ulcer Status: Chronic (5) Irritable bowel syndrome Status: Chronic (6) Seizure-like activity Status: Resolved Surgical Problems: (1) History of cholecystectomy Status: Resolved Family History Patient reports no known family medical history. Social History Smoking Status: Former Smoker Drug Use: none Marital Status: Housing status: lives alone Occupational Status: employed Immunizations History of Influenza Vaccine: Unknown History of Tetanus Vaccine?: Unknown History of Pneumococcal: Unknown History of Hepatitis B Vaccine: Unknown Multi-Drug Resistant Organisms History of MDRO: No Allergies Coded Allergies: Trazodone (Verified Allergy, Severe, TACHYCARDIC, 06/25/16) Carbohydrate (Verified Allergy, Intermediate, MAKES HEART RACE, 06/25/16) Penicillins (Verified Allergy, Unknown, ., 06/25/16) Sulfa Antibiotics (Verified Allergy, Unknown, "SULFA DRUGS", 06/25/16) Codeine (Verified Adverse Reaction, Unknown, GI UPSET, 06/25/16) Home Medications Unable to Obtain Active Prescriptions or Reported Meds Review of Systems Unable to obtain from patient Physical Exam Vital Signs Date Time Temp Pulse Resp B/P Pulse Ox O2 Delivery O2 Flow Rate FiO2 10/02/16 01:06 92 10/02/16 01:00 109/71 10/02/16 00:45 92 18 97 Nasal Cannula 2.0 10/02/16 00:30 112/62 10/02/16 00:15 96 20 97 Nasal Cannula 2.0 10/02/16 00:00 102/55 10/01/16 23:45 94 20 97 Nasal Cannula 2.0 10/01/16 23:30 105/65 10/01/16 23:21 98 Nasal Cannula 2.0 10/01/16 23:15 88 18 98 Nasal Cannula 2.0 10/01/16 23:14 87 18 113/64 98 Nasal Cannula 2.0 10/01/16 21:29 36.4 103 22 133/90 93 Room Air 10/01/16 21:23 108 General Appearance: no apparent distress, + obese Head: normocephalic, atraumatic Eyes: PERRL, EOMI Respiratory/Chest: lungs clear, normal breath sounds, no respiratory distress, no accessory muscle use Cardiovascular: regular rate, rhythm, no murmur Abdomen/GI: normal bowel sounds, non tender, soft Back: no CVA tenderness Extremities/Musculoskelatal: no calf tenderness, normal capillary refill, no pedal edema Neurologic/Psych: + pertinent finding (unable to perform due to patient not rousable) Diagnostics Laboratory Results Results Past 24 Hours Test 10/01/16 22:00 10/01/16 22:24 Range/Units White Blood Count 9.19 4.8-10.8 K/uL Red Blood Count 5.00 4.2-5.4 M/uL Hemoglobin 14.4 12.0-16.0 g/dL Hematocrit 43.2 37-47 % Mean Corpuscular Volume 86.4 80-100 fL Mean Corpuscular Hemoglobin 28.8 25-34 pg Mean Corpuscular Hemoglobin Concent 33.3 32-36 g/dl Platelet Count 169 130-400 K/uL Mean Platelet Volume 12.6 7.4-10.4 fL Neutrophils (%) (Auto) 83.0 % Lymphocytes (%) (Auto) 11.6 % Monocytes (%) (Auto) 5.2 % Eosinophils (%) (Auto) 0.0 % Basophils (%) (Auto) 0.1 % Neutrophils # (Auto) 7.62 1.4-6.5 K/uL Lymphocytes # (Auto) 1.07 1.2-3.4 K/uL Monocytes # (Auto) 0.48 0.11-0.59 K/uL Eosinophils # (Auto) 0.00 0-0.5 K/uL Basophils # (Auto) 0.01 0-0.2 K/uL RDW Standard Deviation 43.1 36.4-46.3 fL RDW Coefficient of Variation 13.7 11.5-14.5 % Immature Granulocyte % (Auto) 0.1 % Immature Granulocyte # (Auto) 0.01 0.00-0.02 K/uL Sodium Level 143 136-145 mmol/L Potassium Level 4.1 3.5-5.1 mmol/L Chloride Level 106 98-107 mmol/L Carbon Dioxide Level 26 21-32 mmol/L Anion Gap 11.0 3-11 mmol/L Blood Urea Nitrogen 11 7-18 mg/dl Creatinine 0.74 0.60-1.20 mg/dl Est Creatinine Clear Calc Drug Dose 70.5 ml/min Estimated GFR () 103.5 Estimated GFR (Non- 89.3 BUN/Creatinine Ratio 15.4 10-20 Random Glucose 105 70-99 mg/dl Osmolality 293 280-300 mOsm/kg Calcium Level 9.6 8.5-10.1 mg/dl Total Bilirubin 0.5 0.2-1 mg/dl Aspartate Amino Transf (AST/SGOT) 37 15-37 U/L Alanine Aminotransferase (ALT/SGPT) 59 12-78 U/L Alkaline Phosphatase 84 45-117 U/L Total Protein 7.8 6.4-8.2 gm/dl Albumin 3.9 3.4-5.0 gm/dl Globulin 3.9 2.5-4.0 gm/dl Albumin/Globulin Ratio 1.0 0.9-2 Thyroid Stimulating Hormone (TSH) 2.400 0.300-4.500 uIu/ml Salicylates Level < 1.7 2.8-20 mg/dl Acetaminophen Level < 2 10-30 ug/ml Ethyl Alcohol mg/dL < 3.0 0-3 mg/dl Urine Color YELLOW Urine Appearance CLEAR CLEAR Urine pH 5.5 4.5-7.5 Urine Specific [place] 1.014 1.000-1.030 Urine Protein NEG NEG Urine Glucose (UA) NEG NEG Urine Ketones NEG NEG Urine Occult Blood NEG NEG Urine Nitrite NEG NEG Urine Bilirubin NEG NEG Urine Urobilinogen NEG NEG Urine Leukocyte Esterase SMALL NEG Urine WBC (Auto) 5-10 0-5 /hpf Urine RBC (Auto) 0-4 0-4 /hpf Urine Hyaline Casts (Auto) 0 0-5 /lpf Urine Epithelial Cells (Auto) 10-20 0-5 /lpf Urine Bacteria (Auto) NEG NEG Urine Opiates Screen NEG NEG Urine Methadone, Qualitative NEG NEG Urine Barbiturates NEG NEG Urine Phencyclidine (PCP) Level NEG NEG Ur Amphetamine/Methamphetamine NEG NEG MDMA (Ecstasy) Screen NEG NEG Urine Benzodiazepines Screen NEG NEG Urine Cocaine Metabolite NEG NEG Urine Marijuana (THC) NEG NEG Diagnostic Radiology CT HEAD WITHOUT CONTRAST (CT) CLINICAL HISTORY: Acute change in mental status. Overdose. COMPARISON STUDY: 09/22/2015 TECHNIQUE: Axial CT of the brain is performed from the vertex to the skull base. IV contrast was not administered for this examination. CT DOSE: 537.48 mGy.cm FINDINGS: No intra or extra-axial mass lesions are visualized. There is no CT evidence of acute cortical infarction. There is no evidence of midline shift. There is no acute hemorrhage. No calvarial fractures are visualized. There is no evidence of pathologic ventricular dilatation. There is no evidence of acute sinusitis IMPRESSION: No acute intracranial findings Electronically signed by: Ashok Collins M.D. 10/01/2016 10:37 PM Dictated Date/Time: 10/01/2016 10:36 PM CXR normal (minimal atelactic changes) Normal EKG (rate 99 bpm, QRS <120 ms and QTc 420 ms) Impression Assessment and Plan 56 year old female with extensive psychiatric history admission for multi-drug overdose. Multi drug overdose - Possibly Tricyclic overdose with pupils dilated and sluggish response. Agitation in the ER. - EKG QAM - currently unremarkable Depression with previous suicidal ideation - unknown whether current episode was suicidal ideation] - consult psychiatry - 302 signed by her Code - Full VTE Prophylaxis - Lovenox 40 mg SQ daily Disposition - admit to telemetry Level of Care Telemetry Resuscitation Status FULL RESUSCITATION VTE Prophylaxis VTE Risk Assessment Done? Y/N: Yes Risk Level: Moderate Resident Tracking Resident Involvement: Resident Care Provided Care Provided: Adult [facility] Medicine Assessment and Plan Attending Addendum: I have physically seen and examined this patient, have directed their medical care, have supervised the medical residents activities, and agree with the H&P as noted above, with the following changes: NONE
[2016-10-02 07:29] VITALS: BP 163/83; PULSE 80; TEMP 36.3; O2SAT 98
[2016-10-02] MEDS: ENOXAPARIN 40 MG/0.4 ML SYR SC SCH ×2 (09:00→09:16)
--- NOTE | 2016-10-02 09:56 | Progress Note ---
Subjective Date of Service: October 02, 2016. Subjective Pt evaluation today including: conversation w/ patient, physical exam, chart review, lab review, conversation w/ consultant internship (D/W admitting resident) Problem List Medical Problems: (1) Alcohol abuse Status: Acute (2) Altered mental status Status: Acute (3) Anticholinergic drug overdose Status: Acute (4) Anxiety Status: Acute (5) Benzodiazepine withdrawal Status: Acute (6) Benzodiazepine withdrawal Status: Acute (7) Dehydration Status: Acute (8) Elevated LFTs Status: Acute (9) Gastritis Status: Chronic (10) Mood disorder Status: Acute (11) Mood disorder Status: Acute (12) Mood disorder Status: Acute (13) Multiple drug overdose Status: Acute (14) Suicidal ideation Status: Acute (15) Weight loss, unintentional Status: Acute Review of Systems ROS is un obtainable due to change in mental status Medications Current Inpatient Medications Medications (Trade) Dose Ordered Sig/Rosalinda Route Start Time Stop Time Status Last Admin Dose Admin Enoxaparin Sodium (Lovenox Inj) 40 mg Q24H SC 10/02/16 09:00 11/01/16 08:59 10/02/16 09:16 40 MG Ondansetron HCl 4 mg 4 mg Q6H PRN IV 10/02/16 02:15 11/01/16 02:14 Sodium Chloride (Nss 1000ml) 1,000 ml @ 125 mls/hr Q8H IV 10/02/16 03:00 11/01/16 02:59 10/02/16 03:09 125 MLS/HR Lorazepam (Ativan Inj) 2 mg Q10M PRN IV 10/02/16 03:30 11/01/16 03:29 Objective Vital Signs Date Time Temp Pulse Resp B/P Pulse Ox O2 Delivery O2 Flow Rate FiO2 10/02/16 08:00 Nasal Cannula 2.0 10/02/16 07:29 36.3 80 20 163/83 98 Nasal Cannula 2.0 10/02/16 04:02 Nasal Cannula 2.0 10/02/16 03:01 36.9 87 18 136/79 99 Nasal Cannula 2.0 10/02/16 02:05 83 17 98 Nasal Cannula 2.0 10/02/16 02:00 110/68 10/02/16 01:35 89 19 98 Nasal Cannula 2.0 10/02/16 01:30 106/78 5/8/17 01:06 92 10/02/16 01:05 92 18 98 Nasal Cannula 2.0 10/02/16 01:00 109/71 10/02/16 00:45 92 18 97 Nasal Cannula 2.0 10/02/16 00:30 112/62 10/02/16 00:15 96 20 97 Nasal Cannula 2.0 10/02/16 00:00 102/55 10/01/16 23:45 94 20 97 Nasal Cannula 2.0 10/01/16 23:30 105/65 10/01/16 23:21 98 Nasal Cannula 2.0 10/01/16 23:15 88 18 98 Nasal Cannula 2.0 10/01/16 23:14 87 18 113/64 98 Nasal Cannula 2.0 10/01/16 21:29 36.4 103 22 133/90 93 Room Air 10/01/16 21:23 108 Physical Exam General Appearance: WD/WN, no apparent distress Eyes: normal inspection, PERRL, EOMI ENT: normal ENT inspection, hearing grossly normal Neck: supple Respiratory/Chest: chest non-tender, lungs clear, normal breath sounds, no respiratory distress, no accessory muscle use Cardiovascular: regular rate, rhythm, no edema, no gallop, no JVD, no murmur Abdomen: normal bowel sounds, non tender, soft, no organomegaly Extremities: normal range of motion, non-tender, normal inspection, no pedal edema Neurologic/Psychiatric: 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 as tested, no motor/sensory deficits, + depressed affect, + pertinent finding (lethargy) Skin: normal color, warm/dry, no rash Comments: Very drowsy follows simple commands respond to loud verbal stimuli Laboratory Results Last 24 Hours Test 10/01/16 22:00 10/01/16 22:24 10/02/16 06:03 White Blood Count 9.19 K/uL Red Blood Count 5.00 M/uL Hemoglobin 14.4 g/dL Hematocrit 43.2 % Mean Corpuscular Volume 86.4 fL Mean Corpuscular Hemoglobin 28.8 pg Mean Corpuscular Hemoglobin Concent 33.3 g/dl Platelet Count 169 K/uL Mean Platelet Volume 12.6 fL Neutrophils (%) (Auto) 83.0 % Lymphocytes (%) (Auto) 11.6 % Monocytes (%) (Auto) 5.2 % Eosinophils (%) (Auto) 0.0 % Basophils (%) (Auto) 0.1 % Neutrophils # (Auto) 7.62 K/uL Lymphocytes # (Auto) 1.07 K/uL Monocytes # (Auto) 0.48 K/uL Eosinophils # (Auto) 0.00 K/uL Basophils # (Auto) 0.01 K/uL RDW Standard Deviation 43.1 fL RDW Coefficient of Variation 13.7 % Immature Granulocyte % (Auto) 0.1 % Immature Granulocyte # (Auto) 0.01 K/uL Sodium Level 143 mmol/L Potassium Level 4.1 mmol/L Chloride Level 106 mmol/L Carbon Dioxide Level 26 mmol/L Anion Gap 11.0 mmol/L Blood Urea Nitrogen 11 mg/dl Creatinine 0.74 mg/dl Est Creatinine Clear Calc Drug Dose 70.5 ml/min Estimated GFR () 103.5 Estimated GFR (Non- 89.3 BUN/Creatinine Ratio 15.4 Random Glucose 105 mg/dl Osmolality 293 mOsm/kg Calcium Level 9.6 mg/dl Total Bilirubin 0.5 mg/dl Aspartate Amino Transf (AST/SGOT) 37 U/L Alanine Aminotransferase (ALT/SGPT) 59 U/L Alkaline Phosphatase 84 U/L Total Protein 7.8 gm/dl Albumin 3.9 gm/dl Globulin 3.9 gm/dl Albumin/Globulin Ratio 1.0 Thyroid Stimulating Hormone (TSH) 2.400 uIu/ml Salicylates Level < 1.7 mg/dl Acetaminophen Level < 2 ug/ml Ethyl Alcohol mg/dL < 3.0 mg/dl Urine Color YELLOW Urine Appearance CLEAR Urine pH 5.5 Urine Specific [place] 1.014 Urine Protein NEG Urine Glucose (UA) NEG Urine Ketones NEG Urine Occult Blood NEG Urine Nitrite NEG Urine Bilirubin NEG Urine Urobilinogen NEG Urine Leukocyte Esterase SMALL Urine WBC (Auto) 5-10 /hpf Urine RBC (Auto) 0-4 /hpf Urine Hyaline Casts (Auto) 0 /lpf Urine Epithelial Cells (Auto) 10-20 /lpf Urine Bacteria (Auto) NEG Urine Opiates Screen NEG Urine Methadone, Qualitative NEG Urine Barbiturates NEG Urine Phencyclidine (PCP) Level NEG Ur Amphetamine/Methamphetamine NEG MDMA (Ecstasy) Screen NEG Urine Benzodiazepines Screen NEG Urine Cocaine Metabolite NEG Urine Marijuana (THC) NEG Prothrombin Time 10.1 SECONDS Prothromb Time International Ratio 0.9 Assessment and Plan Mrs Navas is a 57 year old female who presents to the ER after being found by her on the floor surrounded by pills. She also reportedly drank scotch and some cologne. In the ER she was noted to be very agitated so was given lorazepam. Her son notes that she only takes Olanzapine, Famotidine, Benztropine , and Escitalopram. She was most recently admitted to the psychiatric issa under Dr Ann for suicidal ideation and depression. She is known to abuse benzodiazepines by feigning tremors and repeatedly asking for benzodiazepines. She has not been compliant with her antidepressants and antipsychotics in the past. Assessment / plan : Change in mental status, likely secondary to below appears to be protecting her airway improving slowly Multi drug overdose / possibly intentional Possibly Tricyclic antidepressant and benzo EKG reviewed - currently unremarkable Depression with previous suicidal ideation consult psychiatry 302 signed by her UTI urine Cx empiric CTXN Hx of alcohol abuse thiamine / folate / IVF Hx of Peptic ulcer PPI VTE Prophylaxis Lovenox 40 mg SQ daily Code Full
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
[2016-10-02] MEDS: THIAMINE HCL 100 MG TAB PO SCH (10:44)
[2016-10-02] MEDS: PANTOprazole INJ 40 MG in SYRINGE 0 ML IV SCH (10:44)
[2016-10-02] MEDS: CIPROFLOXACIN / D5W 400 MG in PREMIXED IN D5W 200 ML IV SCH ×2 (10:45→20:09)
[2016-10-02 11:37] VITALS: BP 136/85; PULSE 77; TEMP 36.9; O2SAT 100
[2016-10-02 15:43] VITALS: BP 135/78; PULSE 70; TEMP 36.8; O2SAT 97
[2016-10-02 20:06] VITALS: BP 108/72; PULSE 93; TEMP 36.9; O2SAT 96
[2016-10-02 23:08] VITALS: BP 87/56; PULSE 75; TEMP 37; O2SAT 97
[2016-10-03 03:25] VITALS: BP 85/59; PULSE 71; TEMP 37; O2SAT 96
[2016-10-03] MEDS: SODIUM CHLORIDE 0.9% 1000ML 1,000 ML IV SCH ×3 (05:56→21:34)
[2016-10-03 06:50] LABS: BASO % 0.3 %; BASO ABS # 0.02 K/uL (0-0.2); COMPLETE YES; EOS % 1.3 %; HEMATOCRIT 38.6 % (37-47); IG% 0.2 %; LYMPH % 27.2 %; LYMPH ABS # 1.71 K/uL (1.2-3.4); MEAN CELL VOLUME 87.5 fL (80-100); MEAN CORPUSCULAR HEMOGLOBIN 28.3 pg (25-34); MEAN CORPUSCULAR HGB CONC 32.4 g/dl (32-36); MEAN PLATELET VOLUME 12.1 fL (7.4-10.4); MONO % 10.7 %; NEUT % 60.3 %; PLATELET COUNT 153 K/uL (130-400); RED BLOOD COUNT 4.41 M/uL (4.2-5.4); WHITE BLOOD COUNT 6.28 K/uL (4.8-10.8)
[2016-10-03 07:25] VITALS: BP 125/82; PULSE 67; TEMP 37; O2SAT 96
[2016-10-03 07:30] LABS: ALB/GLOB RATIO 0.8 (0.9-2); BUN/CREATININE RATIO 17.1 (10-20); CALCIUM 8.1 mg/dl (8.5-10.1); CREATININE 0.73 mg/dl (0.60-1.20); MAGNESIUM 2.3 mg/dl (1.8-2.4); PHOSPHORUS 2.4 mg/dl (2.5-4.9); POTASSIUM 3.8 mmol/L (3.5-5.1)
[2016-10-03] MEDS: CIPROFLOXACIN / D5W 400 MG in PREMIXED IN D5W 200 ML IV SCH ×2 (09:16→21:34)
[2016-10-03] MEDS: PANTOprazole INJ 40 MG in SYRINGE 0 ML IV SCH (09:16)
[2016-10-03] MEDS: ENOXAPARIN 40 MG/0.4 ML SYR SC SCH (09:17)
[2016-10-03] MEDS: THIAMINE HCL 100 MG TAB PO SCH (09:18)
[2016-10-03 11:40] VITALS: BP 119/70; PULSE 76; TEMP 36.8; O2SAT 97
[2016-10-03 13:27] VITALS: BP 119/70; PULSE 76; TEMP 36.8; O2SAT 97
--- NOTE | 2016-10-03 13:39 | Psychiatric Consultation ---
Psychiatric Consultation Date of Service: October 03, 2016. Patient is more alert today. She is oriented and able to say that she took extra seroquel and lexapro in an attempt to sleep. She denies suicidal intention. She says that she found an old bottle in the cupboard to use, as her son keeps her regular bottles of meds so she doesn't abuse them. 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 She still has [facility] assistance, which is preventing her from being able to see a local provider Plan: 1. No recommendations for inpatient treatment. 2. Liaison nurse will call the billing department to see if there if anything we can do to process [place] medical assistance. 3. Liaison nurse will call her [place] psychiatrist, Dr. Boogie, to confirm meds and make appt for follow up. 4. Her behaviors are consistent with her addictions history, reaching for pills in unhealthy ways to meet her needs. Encouraged never to take more meds than are prescribed and will notify family that she found old bottles of meds.
--- NOTE | 2016-10-03 15:25 | Progress Note ---
Subjective Date of Service: October 03, 2016. Subjective Pt evaluation today including: conversation w/ patient, physical exam, chart review, lab review, conversation w/ healthcare management consultant Problem List Medical Problems: (1) Alcohol abuse Status: Acute (2) Altered mental status Status: Acute (3) Anticholinergic drug overdose Status: Acute (4) Anxiety Status: Acute (5) Benzodiazepine withdrawal Status: Acute (6) Benzodiazepine withdrawal Status: Acute (7) Dehydration Status: Acute (8) Elevated LFTs Status: Acute (9) Gastritis Status: Chronic (10) Mood disorder Status: Acute (11) Mood disorder Status: Acute (12) Mood disorder Status: Acute (13) Multiple drug overdose Status: Acute (14) Suicidal ideation Status: Acute (15) Weight loss, unintentional Status: Acute Review of Systems Constitutional: No chills, No fatigue, No fever, No problem reported, No see HPI, No sweats, No weakness, No weight loss Eyes: No diplopia, No discharge, No eye pain, No problem reported, No redness, No see HPI, No worsening of vision ENT: No dental problems, No hearing loss, No nasal symptoms, No problem reported, No see HPI, No sore throat, No tinnitus, No trouble swallowing, No unusual epistaxis Respiratory: No cough, No dyspnea at rest, No dyspnea on exertion, No hemoptysis, No problem reported, No see HPI, No shortness of breath, No sputum, No wheezing Cardiac: No PND, No chest pain, No claudication, No edema, No orthopnea, No palpitations, No problem reported, No see HPI Breast: No breast lump, No breast pain, No change in shape, No nipple discharge , No problem reported, No see HPI Abdomen: No GI bleeding, No constipation, No diarrhea, No nausea, No pain, No problem reported, No see HPI, No vomiting Musculoskeletal: No calf pain, No joint pain, No muscle pain, No problem reported, No see HPI, No swelling Female : No abnormal vaginal bleeding, No dysuria, No hematuria, No incontinence, No problem reported, No see HPI, No urinary frequency, No vaginal discharge Neurologic: No balance problems, No memory loss, No numbness/tingling, No paralysis, No problem reported, No see HPI, No vertigo, No weakness Psychiatric: No anhedonism, No anxiety, No depression symptoms, No insomnia, No problem reported, No see HPI, No substance abuse Heme: No abnormal bleeding/bruising, No clotting problems, No night sweats, No problem reported, No see HPI, No swollen lymph nodes Endo: No excessive thirst, No excessive urination, No fatigue, No problem reported, No see HPI Skin: No bleeding, No color change, No itch, No new/changing skin lesions, No problem reported, No rash, No see HPI Medications Current Inpatient Medications Medications (Trade) Dose Ordered Sig/Rosalinda Route Start Time Stop Time Status Last Admin Dose Admin Enoxaparin Sodium (Lovenox Inj) 40 mg Q24H SC 10/02/16 09:00 11/01/16 08:59 10/03/16 09:17 40 MG Ondansetron HCl 4 mg 4 mg Q6H PRN IV 10/02/16 02:15 11/01/16 02:14 Sodium Chloride (Nss 1000ml) 1,000 ml @ 125 mls/hr Q8H IV 10/02/16 03:00 11/01/16 02:59 10/03/16 05:56 125 MLS/HR Lorazepam 2 mg 2 mg Q10M PRN IV 10/02/16 03:30 11/01/16 03:29 Ciprofloxacin/ Dextrose/Prmx (Cipro / D5w/ Premixed D5W) 200 ml @ 100 mls/hr Q12 IV 10/02/16 10:30 10/07/16 10:29 10/03/16 09:16 100 MLS/HR Thiamine HCl (Vitamin B-1 Tab) 100 mg QAM PO 10/02/16 10:30 11/01/16 10:29 10/03/16 09:18 100 MG Folic Acid (Folvite Tab) 1 mg QAM PO 10/02/16 10:30 11/01/16 10:29 10/03/16 09:17 1 MG Pantoprazole Sodium (Protonix Tab) 40 mg QAM PO 10/04/16 09:00 11/03/16 08:59 Objective Vital Signs Date Time Temp Pulse Resp B/P Pulse Ox O2 Delivery O2 Flow Rate FiO2 10/03/16 13:27 36.8 76 18 97 10/03/16 11:59 Room Air 10/03/16 11:40 36.8 76 18 119/70 97 Room Air 10/03/16 08:00 Room Air 10/03/16 07:25 37.0 67 18 125/82 96 Room Air 10/03/16 04:02 Room Air 10/03/16 03:25 37.0 71 18 85/59 96 Room Air 10/03/16 00:02 Room Air 10/02/16 23:08 37.0 75 16 87/56 97 Room Air 10/02/16 20:06 36.9 93 16 108/72 96 Room Air 10/02/16 20:00 Room Air 10/02/16 15:43 36.8 70 16 135/78 97 Room Air 10/02/16 15:24 Nasal Cannula 2.0 Physical Exam General Appearance: WD/WN, no apparent distress Eyes: normal inspection, EOMI ENT: normal ENT inspection, hearing grossly normal Neck: supple Respiratory/Chest: chest non-tender, lungs clear, normal breath sounds, no respiratory distress, no accessory muscle use Cardiovascular: regular rate, rhythm, no edema, no gallop, no JVD, no murmur Abdomen: normal bowel sounds, non tender, soft, no organomegaly Extremities: normal range of motion, non-tender, normal inspection, no pedal edema, no calf tenderness Neurologic/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, no motor/sensory deficits, alert, normal mood/affect, oriented x 3 Skin: normal color, warm/dry, no rash Laboratory Results Last 24 Hours Test 10/03/16 06:27 White Blood Count 6.28 K/uL Red Blood Count 4.41 M/uL Hemoglobin 12.5 g/dL Hematocrit 38.6 % Mean Corpuscular Volume 87.5 fL Mean Corpuscular Hemoglobin 28.3 pg Mean Corpuscular Hemoglobin Concent 32.4 g/dl Platelet Count 153 K/uL Mean Platelet Volume 12.1 fL Neutrophils (%) (Auto) 60.3 % Lymphocytes (%) (Auto) 27.2 % Monocytes (%) (Auto) 10.7 % Eosinophils (%) (Auto) 1.3 % Basophils (%) (Auto) 0.3 % Neutrophils # (Auto) 3.79 K/uL Lymphocytes # (Auto) 1.71 K/uL Monocytes # (Auto) 0.67 K/uL Eosinophils # (Auto) 0.08 K/uL Basophils # (Auto) 0.02 K/uL RDW Standard Deviation 45.4 fL RDW Coefficient of Variation 13.9 % Immature Granulocyte % (Auto) 0.2 % Immature Granulocyte # (Auto) 0.01 K/uL Sodium Level 147 mmol/L Potassium Level 3.8 mmol/L Chloride Level 114 mmol/L Carbon Dioxide Level 27 mmol/L Anion Gap 6.0 mmol/L Blood Urea Nitrogen 12 mg/dl Creatinine 0.73 mg/dl Est Creatinine Clear Calc Drug Dose 75.3 ml/min Estimated GFR () 105.2 Estimated GFR (Non- 90.8 BUN/Creatinine Ratio 17.1 Random Glucose 92 mg/dl Calcium Level 8.1 mg/dl Phosphorus Level 2.4 mg/dl Magnesium Level 2.3 mg/dl Total Bilirubin 0.6 mg/dl Aspartate Amino Transf (AST/SGOT) 54 U/L Alanine Aminotransferase (ALT/SGPT) 80 U/L Alkaline Phosphatase 68 U/L Total Protein 6.2 gm/dl Albumin 2.8 gm/dl Globulin 3.4 gm/dl Albumin/Globulin Ratio 0.8 Assessment and Plan Mrs Navas is a 57 year old female who presents to the ER after being found by her on the floor surrounded by pills. Assessment / plan : Change in mental status, likely secondary to below resolved, currently is fully awake Multi drug overdose / as per patient , it was unintentional Possibly Tricyclic antidepressant and benzo EKG reviewed - currently unremarkable Depression with previous suicidal ideation consult psychiatry,since she is more awake today 302 signed by her but might not be unnecessary at this point called and left a message for next of kin , Cam Navas , awaiting a call back planning to have a family meeting to secure all meds at home UTI urine Cx continue empiric CTXN Hx of alcohol abuse thiamine / folate / IVF Hx of Peptic ulcer PPI VTE Prophylaxis Lovenox 40 mg SQ daily Code Full
[2016-10-03 15:28] VITALS: BP 137/83; PULSE 92; TEMP 37.1; O2SAT 95
[2016-10-03 23:51] VITALS: BP 108/72; PULSE 82; TEMP 37.1; O2SAT 92
[2016-10-04] MEDS: SODIUM CHLORIDE 0.9% 1000ML 1,000 ML IV SCH ×2 (04:34→11:00)
[2016-10-04 06:36] LABS: BASO % 0.3 %; BASO ABS # 0.02 K/uL (0-0.2); COMPLETE YES; EOS % 1.2 %; HEMATOCRIT 36.7 % (37-47); IG% 0.4 %; LYMPH ABS # 1.87 K/uL (1.2-3.4); MEAN CELL VOLUME 86.8 fL (80-100); MEAN CORPUSCULAR HEMOGLOBIN 28.1 pg (25-34); MEAN CORPUSCULAR HGB CONC 32.4 g/dl (32-36); MEAN PLATELET VOLUME 11.5 fL (7.4-10.4); NEUT % 63.1 %; PLATELET COUNT 143 K/uL (130-400); RED BLOOD COUNT 4.23 M/uL (4.2-5.4); WHITE BLOOD COUNT 7.48 K/uL (4.8-10.8)
[2016-10-04 07:03] VITALS: BP 116/76; PULSE 87; TEMP 37.4; O2SAT 93
[2016-10-04 07:13] LABS: BUN/CREATININE RATIO 17.2 (10-20); CREATININE 0.78 mg/dl (0.60-1.20); MAGNESIUM 2.1 mg/dl (1.8-2.4)
[2016-10-04 07:33] LABS: ALB/GLOB RATIO 0.8 (0.9-2); PHOSPHORUS 1.8 mg/dl (2.5-4.9)
[2016-10-04] MEDS: CIPROFLOXACIN / D5W 400 MG in PREMIXED IN D5W 200 ML IV SCH (08:10)
[2016-10-04] MEDS ORDERED: PANTOprazole SOD 40 MG TAB PO SCH (09:00)
[2016-10-04] MEDS: THIAMINE HCL 100 MG TAB PO SCH (09:45)
--- NOTE | 2016-10-04 11:04 | Discharge Instructions ---
Discharge Instructions Admission Admission Date: October 02, 2016 at 02:00 Admission Diagnosis: Ams, Anticholinergic Drug Overdose. Discharge Care Plan - Problem: Medical Problems: (1) Altered mental status (2) Anticholinergic drug overdose (3) Multiple drug overdose Care Plan - Goal(s): Decrease discomfort Care Plan - Instructions: Activity Recommendations: no limitations Recommended Home Diet: Regular Follow Up Follow-Up: follow up with psychiatrist in one week Virginia Duque Recommendations: Call your doctor if: * Temperature above 101 degrees * Pain not relieved by pain medicine ordered * There is increased drainage or redness from any incision * You have any unanswered questions or concerns. Your Doctors Instructions noted above were prepared by provider Salvador Reno.
--- NOTE | 2016-10-04 11:15 | Discharge Summary ---
Discharge Summary Date of Service October 04, 2016. Discharge Summary Admission Date: October 02, 2016 at 02:00 Discharge Date: October 04, 2016 Discharge Disposition: Home Principal Diagnosis: incedental DOD Problems/Secondary Diagnoses: Change in mental status, likely secondary to below resolved, currently is fully awake Multi drug overdose / as per patient , it was unintentional Possibly Tricyclic antidepressant and benzo EKG reviewed - currently unremarkable Depression UTI Hx of alcohol abuse Hx of Peptic ulcer Immunizations: Have You Had Influenza Vaccine: Unknown History of Tetanus Vaccine?: Unknown History of Pneumococcal: Unknown History of Hepatitis B Vaccine: Unknown Medication Reconciliation Medication Profile: Unable to Obtain Active Prescriptions or Reported Meds Discharge Exam Review of Systems: Constitutional: No chills, No fatigue, No fever, No problem reported, No sweats, No weakness, No weight loss Eyes: No diplopia, No discharge, No eye pain, No problem reported, No redness, No worsening of vision ENT: No dental problems, No hearing loss, No nasal symptoms, No problem reported, No sore throat, No tinnitus, No trouble swallowing, No unusual epistaxis Respiratory: No cough, No dyspnea at rest, No dyspnea on exertion, No hemoptysis, No problem reported, No shortness of breath, No sputum, No wheezing Cardiovascular: No PND, No chest pain, No claudication, No edema, No orthopnea, No palpitations, No problem reported Abdomen: No GI bleeding, No constipation, No diarrhea, No nausea, No pain, No problem reported, No vomiting Musculoskeletal: No calf pain, No joint pain, No muscle pain, No problem reported, No swelling Genitourinary - Female: No dysmenorrhea, No dysuria, No hematuria, No menorrhagia, No metrorrhagia, No , No problem reported, No rash, No urinary frequency, No urinary incontinence, No urinary retention, No urinary urgency, No vaginal bleeding, No vaginal discharge, No vaginal itching, No vulvodynia Neurologic: No balance problems, No memory loss, No numbness/tingling, No paralysis, No problem reported, No vertigo, No weakness Psychiatric: No anhedonism, No anxiety, No depression symptoms, No insomnia , No problem reported, No substance abuse Endocrine: No excessive thirst, No excessive urination, No fatigue, No problem reported Hematologic / Lymphatic: No abnormal bleeding/bruising, No clotting problems , No night sweats, No problem reported, No swollen lymph nodes Integumentary: No bleeding, No color change, No itch, No new/changing skin lesions, No problem reported, No rash Physical Exam: General Appearance: WD/WN, no apparent distress Eyes: normal inspection, EOMI ENT: normal ENT inspection Neck: supple Respiratory/Chest: chest non-tender, lungs clear, normal breath sounds, no respiratory distress, no accessory muscle use Cardiovascular: regular rate, rhythm, no edema, no gallop, no JVD, no murmur Abdomen / GI: normal bowel sounds, non tender, soft, no organomegaly, no pulsatile mass, normal rectal exam Extremities: normal inspection, no calf tenderness, normal capillary refill , no pedal edema Neurologic/Psychiatric: 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 admitted to telemetry and slowly woke up. denied trying to kill her self but said that she hasn't slept for few days and was trying to sleep. agreed that she was not trying to kill her self but thinks she was trying to get high at this point she did not seem to be a threat to her self or others I had a long discussion with her son Neil and ex Cam, everybody was in the same page, her meds will be locked from now on (they have been doing that but a new medicine came in the mail that she utilized), psych consult was appreciated and she was cleared for discharge by them she said that she gets her meds from her PCP in [place] , she is in the process of transferring her insurance on a foot note she was found to have suspected UTI and received cipro for 3 days while in the hospital. Total Time Spent: Greater than 30 minutes This includes examination of the patient, discharge planning, medication reconciliation, and communication with other providers. Discharge Instructions Please refer to the electronic Patient Visit Report (Discharge Instructions) for additional information.
[2016-10-04 11:19] VITALS: BP 116/76; PULSE 87; TEMP 37.4; O2SAT 93
== END 2016-10-04 13:15 | disposition home or self-care (01) | DRG 918 ==
LOC: ENRESERVTM → ENRESERVDT → C.EDB 21:16 → C.2T 10-02 02:00 → C.MS2W 10-03 14:42
PROVIDERS: ADMIT Hospitalist; ATTEND Internal Medicine
DX: T44.3X4A Poisoning by other parasympatholytics [anticholinergics and antimuscarinics] and spasmolytics, undetermined, initial encounter (principal); N39.0 Urinary tract infection, site not specified; F32.9 Major depressive disorder, single episode, unspecified; R41.0 Disorientation, unspecified; F10.21 Alcohol dependence, in remission; K58.9 Irritable bowel syndrome, unspecified; Z90.49 Acquired absence of other specified parts of digestive tract; Z87.11 Personal history of peptic ulcer disease; Z87.891 Personal history of nicotine dependence

== ENCOUNTER 2017-07-06 04:03 | Emergency (ER) | payer OTHER ==
[~2017-07-06] VITALS: Ht 160 cm; Wt 79.7 kg
[2017-07-06 04:04] VITALS: TEMP 36.7; Ht 160 cm; Wt 79.7 kg
--- NOTE | 2017-07-06 05:09 | EMERGENCY ROOM VISIT NOTE ---
History Report prepared by Wilner: Ellen Morris Under the Supervision of: Dr. Bhavna Almazan D.O. First contact with patient: 04:25 Chief Complaint: FACIAL PAIN/INJURY Stated Complaint: SWOLLEN FACE History of Present Illness The patient is a 56 year old female who presents to the Emergency Room with complaints of worsening facial swelling that began one day ago. The patient states that her swelling is causing her discomfort and pain, noting that it has been causing her gums to hurt. She reports that she has been taking Advil, noting it was not relieved her symptoms. She denies any teeth, jaw, gland, or abdominal pain. Source of History: patient Onset: one day ago Position: other (face) Quality: other (facial swelling) Timing: worsening Associated Symptoms: No abdominal pain Note: Associated symptoms include: her gums hurt. The patient denies any teeth, jaw, or gland pain. Review of Systems See HPI for pertinent positives & negatives. A total of 10 systems reviewed and were otherwise negative. Past Medical & Surgical Medical Problems: (1) Alcohol abuse (2) Benzodiazepine abuse (3) Benzodiazepine withdrawal with complication (4) Depression not otherwise specified (5) DVT (deep venous thrombosis) (6) Gastritis (7) H pylori ulcer (8) Irritable bowel syndrome (9) Mild neurocognitive disorder (10) Neurocognitive disorder (11) Nicotine abuse (12) past psych meds (13) Past Psych Meds (14) Seizure-like activity (15) Suicidal ideation Surgical Problems: (1) History of cholecystectomy Family History Patient reports no known family medical history. Social History Smoking Status: Current Some Day Smoker Alcohol Use: occasionally Drug Use: none Marital Status: Housing Status: lives with family Occupation Status: employed Current/Historical Medications Scheduled Escitalopram Oxalate (Lexapro), 20 MG PO DAILY Allergies Coded Allergies: Trazodone (Verified Allergy, Severe, TACHYCARDIC, 06/25/16) Carbohydrate (Verified Allergy, Intermediate, MAKES HEART RACE, 06/25/16) Penicillins (Verified Allergy, Unknown, ., 06/25/16) Sulfa Antibiotics (Verified Allergy, Unknown, "SULFA DRUGS", 06/25/16) Codeine (Verified Adverse Reaction, Unknown, GI UPSET, 06/25/16) Physical Exam Vital Signs Date Time Temp Pulse Resp B/P (MAP) Pulse Ox O2 Delivery O2 Flow Rate FiO2 2/9/18 05:46 84 18 109/77 93 07/06/17 04:04 36.7 90 20 117/84 95 Room Air Physical Exam HEENT: Head - normocephalic and atraumatic Pupils are equal, round, and reactive to light. Extraocular eye muscles are intact, and sclera are anicteric. Nose - moist nasal mucosa without discharge. Mouth - Edema and erythema beneath left lower lip with pain to palpitation of that area and of the lower gingiva behind area of edema. Moist buccal mucosa. Oropharynx is nonerythematous and there is no tonsillar exudate or edema noted. Neck: Supple; no JVD, nuchal rigidity, cervical lymphadenopathy. Heart: Regular rate and rhythm. There is a normal S1 and S2 with no murmurs, clicks, or gallops appreciated. Lungs: Clear to auscultation bilaterally with no wheezes, rales, or rhonchi. Abdomen: Soft, completely nontender, nondistended, with good bowel sounds. There are no palpable pulsatile masses or hepatosplenomegaly. There is no guarding, rigidity, or rebound noted. Extremities: No evidence of cyanosis, clubbing, or edema. There are easily palpable peripheral pulses. Skin: warm and dry with good turgor and no rashes. Medical Decision & Procedures Medications Administered Medications (Trade) Dose Ordered Sig/Rosalinda Route Start Time Stop Time Status Last Admin Dose Admin Clindamycin HCl (Cleocin Cap) 450 mg ONE ONCE PO 07/06/17 05:15 07/06/17 05:16 DC 07/06/17 05:28 450 MG Procedure 0515: Ordered Cleocin Cap 450 mg PO. ED Course 0500: Past medical records reviewed. The patient was evaluated in room A2. A complete history and physical exam was performed. 0515: Ordered Cleocin Cap 450 mg PO. 0535: Upon reevaluation, the patient was resting. She declined wanting anything for pain. The patient was discharged home. Medical Decision The patient is a 56 year old female who presents to the ED with persistent facial swelling. Differential diagnosis includes dental infection, facial cellulitis, and Mauricio angina. It appears that the patient may have a dental infection with some facial cellulitis. She will be treated with Cleocin 3 times a day For the next week. She is planning to follow up with a dentist. She was told to return to the emergency department if she had any worsening symptoms. Medication Reconcilliation Current Medication List: was personally reviewed by me Blood Pressure Screening Patient's blood pressure: Normal blood pressure Blood pressure disposition: Did not require urgent referral Impression Primary Impression: Dental infection Additional Impression: Facial cellulitis Scribe Attestation The scribe's documentation has been prepared under my direction and personally reviewed by me in its entirety. I confirm that the note above accurately reflects all work, treatment, procedures, and medical decision making performed by me. Departure Information Dispostion Home / Self-Care Referrals No Doctor, Assigned (PCP) Forms HOME CARE DOCUMENTATION FORM, IMPORTANT VISIT INFORMATION Patient Instructions My [facility] Additional Instructions Rest. Take clindamycin every 8 hours Follow up wih a dentist. Return to the ER if symptoms worsen. Problem Qualifiers
[2017-07-06] MEDS ORDERED: CLINDAMYCIN HCL 150 MG CAP PO ONE (05:15)
[2017-07-06] MEDS ORDERED: ESCI1TAB10 PO (05:34)
[2017-07-06 05:46] VITALS: BP 109/77; PULSE 84; O2SAT 93
== END 2017-07-06 05:46 | disposition home or self-care (01) ==
LOC: C.EDB 04:04 → C.EDA 05:46
DX: K04.7 Periapical abscess without sinus (principal); L03.90 Cellulitis, unspecified; F32.9 Major depressive disorder, single episode, unspecified; I82.409 Acute embolism and thrombosis of unspecified deep veins of unspecified lower extremity; R41.9 Unspecified symptoms and signs involving cognitive functions and awareness; F17.200 Nicotine dependence, unspecified, uncomplicated

== ENCOUNTER 2023-01-21 13:20 | Inpatient (IN) ==
--- NOTE | 2023-01-21 13:49 | Emergency Department Note ---
Impression & Plan AMS (altered mental status), Hypomagnesemia, Acute hyponatremia, Leukocytosis, Dystonic drug reaction ED Provider Note HISTORY OF PRESENT ILLNESS: Patient is a 62-year-old female presenting with altered mental status. Son provides history. Reports that he picked the patient up for spiritism this morning and noticed that the patient was having twitching of her mouth. Reports the patient went to spiritism and he picked her back up and she had continued mouth twitching and was acting more confused than normal. States that the patient has drank 10 water bottles in the last 2 hours. Denies any recent head injuries. Denies recent changes in medication. Son is unsure if the patient took any extra medications this morning. Patient denies any chest pain or shortness of breath on arrival. ROS: as above PHYSICAL EXAM: Constitutional: Patient appears in no acute distress. HENT: Head: Normocephalic and atraumatic. Eyes: EOMI, PERRL Mouth/Throat: Mucous membranes moist. Patient is having constant twitching of her lips and lip smacking. Neck: Trachea midline. Neck supple. Cardiovascular: Tachycardic with regular rhythm. No murmurs, rubs or gallops. Intact distal pulses. Pulmonary/Chest: No respiratory distress. Breath sounds clear and equal bilaterally. No wheezes or rales. Abdominal: Abdomen soft, no tenderness, rebound or guarding. Musculoskeletal: No edema, tenderness or deformity noted. Skin: Warm and dry. No rash, erythema, pallor or cyanosis Neurological: Alert but lethargic. Patient is alert and oriented x3 but is slow to respond. CN II-XII grossly intact, moving all extremities equally and fully. MDM: - Vitals signs showed hypertension and borderline tachycardia. - History obtained via patient's son, given patient's confusion. Patient presents with altered mental status and mouth twitching. Son reports that the patient has been acting abnormal since this morning when he picked her up for spiritism. States that she is having constant mouth twitching and acting more confused than normal. Reports she drank 10 bottles of water in the last 2 hours. Denies any recent head injuries or falls. Denies any recent changes in medication. Son is unsure if the patient took any extra medications this morn ing. Patient denies any chest pain or shortness of breath. - Chronic conditions affecting care: anxiety/depression - Differential diagnoses include, but are not limited to: Drug overdose; ACS; pneumonia; UTI; electrolyte abnormality; intoxication; CVA; intracranial hemorrhage; seizures - Order placed for continuous cardiac monitoring. At this time, monitor showed rate of 85 bpm with normal sinus rhythm, per my interpretation. - External medical records reviewed. Review of patient's medication list shows she is on olanzapine. Her mild twitching may be secondary to a dystonic reaction. She is given 50 mg of IV Benadryl. - EKG reviewed by myself showed normal sinus rhythm. Rate 90 bpm. QTc of 391. No acute ischemic changes. EKG did not reveal QRS greater than 109 ms or an R wave greater than 3 mm in lead AVR that was suggest significant TCA toxicity. - Laboratory workup interpreted by myself showed leukocytosis (WBC 13.01); hyponatremia (Na 123); elevated lactate (2.4); hypomagnesemia (Mg 1.3); transaminitis (AST 130/ALT 105); normal troponin; negative ethanol/salicylate/acetaminophen levels; normal procalcitonin - VBG negative for acidosis - Patient initially given a total of 75 mg IV benadryl for presumed dystonic reaction. However, symptoms did not improve. Given 0.5 mg of IV Ativan - CT head wo contrast negative for acute intracranial pathology - CT abdomen/pelvis with IV contrast showed a distended bladder and bilateral hydronephrosis. - Nickerson catheter placed. - CXR negative for pneumonia - UA negative for infection - UDS negative - Given 1g IV magnesium for electrolyte replacement and 1L NS. - Discussion was had with group social worker about patient's case and need for admission - Hospitalist consulted for admission. - [facility] I provided 46 minutes of critical care time to this patient's care outside of billable procedures ASSESSMENT AND PLAN: Diagnosis: Altered mental status; hypomagnesemia; hyponatremia; elevated lacta te; leukocytosis; dystonic drug reaction Plan: Admit Past Med/Surg History Medical History (Updated 01/21/23 @ 17:21 by Gabriella Springer MD) Alcohol abuse Benzodiazepine abuse Benzodiazepine withdrawal with complication Cellulitis Dental infection DVT (deep venous thrombosis) Epigastric pain Facial cellulitis H pylori ulcer Hypokalemia Irritable bowel syndrome Leg pain, right Mild neurocognitive disorder Muscular aches Nausea Neurocognitive disorder Nicotine abuse Palpitations Pharyngitis Psychogenic movement disorder Seizure-like activity Sore throat Surgical History History of cholecystectomy Family History Other No significant family history Social History Smoking Status: Never smoker Preferred Language: Grenadian marital status: Current Living Situation: Alone current occupational status: disabled Feels Safe at Home: Yes Allergies Allergies Allergy/AdvReac Type Severity Reaction Status Date / Time trazodone Allergy Severe TACHYCARDIC Verified 06/22/18 23:23 Penicillins Allergy Unknown . Verified 10/16/22 22:42 Sulfa (Sulfonamide Allergy Unknown "SULFA Verified 10/16/22 22:42 Antibiotics) DRUGS" codeine AdvReac Unknown GI UPSET Verified 06/22/18 23:23 Carbohydrate Allergy Intermediate MAKES Uncoded 06/22/18 23:23 HEART RACE morphine and related AdvReac Unknown Uncoded 10/16/22 22:43 Home Meds Home Medications Medication Instructions Recorded Confirmed benztropine 1 mg tablet 1 mg PO QAM 06/22/18 01/21/23 escitalopram oxalate 20 mg tablet 20 mg PO DAILY 06/22/18 01/21/23 olanzapine 20 mg tablet 20 mg PO HS 06/22/18 01/21/23 Results & Data (ED) Vital Signs Vital Signs - 24 hr 01/21/23 13:32 01/21/23 14:24 01/21/23 14:11 Temperature 36.1 C L Temperature Source Temporal Artery Scan Pulse Rate 91 H 98 H Pulse Rate [Right Finger] Pulse Rhythm Regular Pulse Strength Normal Respiratory Rate 20 Respiratory Effort / Characteristics Non-Labored Spontaneous Respiratory Depth Normal Respiratory Pattern Regular Blood Pressure 154/100 H Blood Pressure [Right Arm] Blood Pressure Mean 118 Blood Pressure Mean [Right Arm] Blood Pressure Position Sitting Pulse Oximetry 94 Oxygen Delivery Method Room Air Room Air Sepsis Recent Fever Within 48 Hours No Sepsis New/Unexplained Change in Mental Status No Sepsis Action Taken by Nursing No Action Required 01/21/23 15:59 01/21/23 16:36 01/21/23 17:14 Temperature Temperature Source Pulse Rate Pulse Rate [Right Finger] 111 H 86 Pulse Rhythm Pulse Strength Respiratory Rate 24 20 Respiratory Effort / Characteristics Non-Labored Respiratory Depth Normal Respiratory Pattern Blood Pressure Blood Pressure [Right Arm] 116/71 Blood Pressure Mean Blood Pressure Mean [Right Arm] 86 Blood Pressure Position Pulse Oximetry 93 93 92 Oxygen Delivery Method Room Air Room Air Room Air Sepsis Recent Fever Within 48 Hours Sepsis New/Unexplained Change in Mental Status Sepsis Action Taken by Nursing 01/21/23 17:54 Temperature Temperature Source Pulse Rate 73 Pulse Rate [Right Finger] Pulse Rhythm Pulse Strength Respiratory Rate Respiratory Effort / Characteristics Respiratory Depth Respiratory Pattern Blood Pressure Blood Pressure [Right Arm] Blood Pressure Mean Blood Pressure Mean [Right Arm] Blood Pressure Position Pulse Oximetry Oxygen Delivery Method Sepsis Recent Fever Within 48 Hours Sepsis New/Unexplained Change in Mental Status Sepsis Action Taken by Nursing Laboratory Data 01/21/23 14:22 01/21/23 14:22 Lab Results 01/21/23 01/21/23 01/21/23 Range/Units 14:22 14:22 14:22 WBC 13.01 H (4.8-10.8) K/ul RBC 4.60 (4.20-5.40) M/uL Hgb 14.0 (12.0-16.0) g/dl Hct 39.3 (37.0-47.0) % MCV 85.4 (80.0-100.0) fL MCH 30.4 (25.0-34.0) pg MCHC 35.6 (32.0-36.0) g/dL RDW Std Deviation 40.5 (36.4-46.3) fL RDW Coeff of Vika 13.1 (11.5-14.5) % Plt Count 156 (130-400) K/uL MPV 13.0 H (9.4-12.4) fL Immature Gran % (Auto) 0.8 % Neut % (Auto) 81.8 % Lymph % (Auto) 9.9 % [place] % (Auto) 7.2 % Eos % (Auto) 0.0 % Baso % (Auto) 0.3 % Neut # (Auto) 10.64 H (1.40-6.50) K/uL Lymph # (Auto) 1.29 (1.20-3.40) K/uL [place] # (Auto) 0.94 H (0.11-0.59) K/uL Eos # (Auto) 0.00 (0.00-0.50) K/uL Baso # (Auto) 0.04 (0.00-0.20) K/uL Immature Gran # (Auto) 0.10 (0.01-0.20) K/uL PT (9.0-12.0) Seconds INR (0.9-1.1) VBG pH (7.36-7.41) VBG pCO2 (38-50) mmHg VBG pO2 mmHg VBG HCO3 mmol/L VBG O2 Saturation % VBG Base Excess mEq/L Sodium 123 L (136-145) mmol/L Potassium 4.1 (3.5-5.1) mmol/L Chloride 92 L (98-107) mmol/L Carbon Dioxide 24 (21-32) mmol/L Anion Gap 7 (3-11) BUN 10 (6-23) mg/dl Creatinine 0.62 (0.6-1.2) mg/dl Est Cr Clr Drug Dosing 100.3 ml/min Est GFR ( Amer) 110.4 ml/min Est GFR (Non-Af Amer) 95.3 ml/min BUN/Creatinine Ratio 16.1 (10-20) Glucose 102 H (70-99(Fasting)) mg/dl Lactate (0.4-2.0) mmol/L Calcium 8.5 L (8.6-10.3) mg/dl Magnesium 1.3 L (1.7-2.4) mg/dl Total Bilirubin 1.7 H (0.2-1.0) mg/dl AST 105 H (13-39) U/L ALT 130 H (7-52) U/L Alkaline Phosphatase 92 (34-104) U/L Troponin I High Sens 4.8 (0-14) pg/ml Total Protein 6.8 (6.0-8.3) gm/dl Albumin 3.8 (3.4-5.0) gm/dl Globulin 3.0 (2.5-4.0) gm/dl Albumin/Globulin Ratio 1.3 (0.9-2) Procalcitonin (0-0.5) ng/ml Urine Color Urine Appearance (Clear) Urine pH (4.5-7.5) Ur Specific [place] (1.000-1.030) Urine Protein (Negative) Urine Glucose (UA) (Negative) Urine Ketones (Negative) Urine Blood (Negative) Urine Nitrite (Negative) Urine Bilirubin (Negative) Urine Urobilinogen (Negative) Ur Leukocyte Esterase (Negative) Salicylates < 3.0 L (3.0-30) mg/dl Urine Opiates Screen (Neg) Ur Methadone, Qual (Neg) Acetaminophen < 3 L (10-30) ug/ml Urine Barbiturates (Neg) Ur Phencyclidine (PCP) (Neg) U Amphetamin/Meth Scrn (Neg) MDMA (Ecstasy) Screen (Neg) U Benzodiazepines Scrn (Neg) Ur Cocaine Metabolite (Neg) U Marijuana (THC) Screen (Neg) Ethyl Alcohol mg/dL (<10.0) mg/dl 01/21/23 01/21/23 01/21/23 Range/Units 14:22 14:22 14:22 WBC (4.8-10.8) K/ul RBC (4.20-5.40) M/uL Hgb (12.0-16.0) g/dl Hct (37.0-47.0) % MCV (80.0-100.0) fL MCH (25.0-34.0) pg MCHC (32.0-36.0) g/dL RDW Std Deviation (36.4-46.3) fL RDW Coeff of Vika (11.5-14.5) % Plt Count (130-400) K/uL MPV (9.4-12.4) fL Immature Gran % (Auto) % Neut % (Auto) % Lymph % (Auto) % [place] % (Auto) % Eos % (Auto) % Baso % (Auto) % Neut # (Auto) (1.40-6.50) K/uL Lymph # (Auto) (1.20-3.40) K/uL [place] # (Auto) (0.11-0.59) K/uL Eos # (Auto) (0.00-0.50) K/uL Baso # (Auto) (0.00-0.20) K/uL Immature Gran # (Auto) (0.01-0.20) K/uL PT (9.0-12.0) Seconds INR (0.9-1.1) VBG pH 7.36 (7.36-7.41) VBG pCO2 42 (38-50) mmHg VBG pO2 30 mmHg VBG HCO3 24 mmol/L VBG O2 Saturation < 60.0 % VBG Base Excess -1.8 mEq/L Sodium (136-145) mmol/L Potassium (3.5-5.1) mmol/L Chloride (98-107) mmol/L Carbon Dioxide (21-32) mmol/L Anion Gap (3-11) BUN (6-23) mg/dl Creatinine (0.6-1.2) mg/dl Est Cr Clr Drug Dosing ml/min Est GFR ( Amer) ml/min Est GFR (Non-Af Amer) ml/min BUN/Creatinine Ratio (10-20) Glucose (70-99(Fasting)) mg/dl Lactate 2.4 H* (0.4-2.0) mmol/L Calcium (8.6-10.3) mg/dl Magnesium (1.7-2.4) mg/dl Total Bilirubin (0.2-1.0) mg/dl AST (13-39) U/L ALT (7-52) U/L Alkaline Phosphatase (34-104) U/L Troponin I High Sens (0-14) pg/ml Total Protein (6.0-8.3) gm/dl Albumin (3.4-5.0) gm/dl Globulin (2.5-4.0) gm/dl Albumin/Globulin Ratio (0.9-2) Procalcitonin (0-0.5) ng/ml Urine Color Urine Appearance (Clear) Urine pH (4.5-7.5) Ur Specific [place] (1.000-1.030) Urine Protein (Negative) Urine Glucose (UA) (Negative) Urine Ketones (Negative) Urine Blood (Negative) Urine Nitrite (Negative) Urine Bilirubin (Negative) Urine Urobilinogen (Negative) Ur Leukocyte Esterase (Negative) Salicylates (3.0-30) mg/dl Urine Opiates Screen (Neg) Ur Methadone, Qual (Neg) Acetaminophen (10-30) ug/ml Urine Barbiturates (Neg) Ur Phencyclidine (PCP) (Neg) U Amphetamin/Meth Scrn (Neg) MDMA (Ecstasy) Screen (Neg) U Benzodiazepines Scrn (Neg) Ur Cocaine Metabolite (Neg) U Marijuana (THC) Screen (Neg) Ethyl Alcohol mg/dL < 10.0 (<10.0) mg/dl 01/21/23 01/21/23 01/21/23 Range/Units 14:22 14:25 16:12 WBC (4.8-10.8) K/ul RBC (4.20-5.40) M/uL Hgb (12.0-16.0) g/dl Hct (37.0-47.0) % MCV (80.0-100.0) fL MCH (25.0-34.0) pg MCHC (32.0-36.0) g/dL RDW Std Deviation (36.4-46.3) fL RDW Coeff of Vika (11.5-14.5) % Plt Count (130-400) K/uL MPV (9.4-12.4) fL Immature Gran % (Auto) % Neut % (Auto) % Lymph % (Auto) % [place] % (Auto) % Eos % (Auto) % Baso % (Auto) % Neut # (Auto) (1.40-6.50) K/uL Lymph # (Auto) (1.20-3.40) K/uL [place] # (Auto) (0.11-0.59) K/uL Eos # (Auto) (0.00-0.50) K/uL Baso # (Auto) (0.00-0.20) K/uL Immature Gran # (Auto) (0.01-0.20) K/uL PT 11.0 (9.0-12.0) Seconds INR 1.0 (0.9-1.1) VBG pH (7.36-7.41) VBG pCO2 (38-50) mmHg VBG pO2 mmHg VBG HCO3 mmol/L VBG O2 Saturation % VBG Base Excess mEq/L Sodium (136-145) mmol/L Potassium (3.5-5.1) mmol/L Chloride (98-107) mmol/L Carbon Dioxide (21-32) mmol/L Anion Gap (3-11) BUN (6-23) mg/dl Creatinine (0.6-1.2) mg/dl Est Cr Clr Drug Dosing ml/min Est GFR ( Amer) ml/min Est GFR (Non-Af Amer) ml/min BUN/Creatinine Ratio (10-20) Glucose (70-99(Fasting)) mg/dl Lactate 2.1 H* (0.4-2.0) mmol/L Calcium (8.6-10.3) mg/dl Magnesium (1.7-2.4) mg/dl Total Bilirubin (0.2-1.0) mg/dl AST (13-39) U/L ALT (7-52) U/L Alkaline Phosphatase (34-104) U/L Troponin I High Sens (0-14) pg/ml Total Protein (6.0-8.3) gm/dl Albumin (3.4-5.0) gm/dl Globulin (2.5-4.0) gm/dl Albumin/Globulin Ratio (0.9-2) Procalcitonin < 0.05 (0-0.5) ng/ml Urine Color Urine Appearance (Clear) Urine pH (4.5-7.5) Ur Specific [place] (1.000-1.030) Urine Protein (Negative) Urine Glucose (UA) (Negative) Urine Ketones (Negative) Urine Blood (Negative) Urine Nitrite (Negative) Urine Bilirubin (Negative) Urine Urobilinogen (Negative) Ur Leukocyte Esterase (Negative) Salicylates (3.0-30) mg/dl Urine Opiates Screen (Neg) Ur Methadone, Qual (Neg) Acetaminophen (10-30) ug/ml Urine Barbiturates (Neg) Ur Phencyclidine (PCP) (Neg) U Amphetamin/Meth Scrn (Neg) MDMA (Ecstasy) Screen (Neg) U Benzodiazepines Scrn (Neg) Ur Cocaine Metabolite (Neg) U Marijuana (THC) Screen (Neg) Ethyl Alcohol mg/dL (<10.0) mg/dl 01/21/23 01/21/23 Range/Units 17:12 17:12 WBC (4.8-10.8) K/ul RBC (4.20-5.40) M/uL Hgb (12.0-16.0) g/dl Hct (37.0-47.0) % MCV (80.0-100.0) fL MCH (25.0-34.0) pg MCHC (32.0-36.0) g/dL RDW Std Deviation (36.4-46.3) fL RDW Coeff of Vika (11.5-14.5) % Plt Count (130-400) K/uL MPV (9.4-12.4) fL Immature Gran % (Auto) % Neut % (Auto) % Lymph % (Auto) % [place] % (Auto) % Eos % (Auto) % Baso % (Auto) % Neut # (Auto) (1.40-6.50) K/uL Lymph # (Auto) (1.20-3.40) K/uL [place] # (Auto) (0.11-0.59) K/uL Eos # (Auto) (0.00-0.50) K/uL Baso # (Auto) (0.00-0.20) K/uL Immature Gran # (Auto) (0.01-0.20) K/uL PT (9.0-12.0) Seconds INR (0.9-1.1) VBG pH (7.36-7.41) VBG pCO2 (38-50) mmHg VBG pO2 mmHg VBG HCO3 mmol/L VBG O2 Saturation % VBG Base Excess mEq/L Sodium (136-145) mmol/L Potassium (3.5-5.1) mmol/L Chloride (98-107) mmol/L Carbon Dioxide (21-32) mmol/L Anion Gap (3-11) BUN (6-23) mg/dl Creatinine (0.6-1.2) mg/dl Est Cr Clr Drug Dosing ml/min Est GFR ( Amer) ml/min Est GFR (Non-Af Amer) ml/min BUN/Creatinine Ratio (10-20) Glucose (70-99(Fasting)) mg/dl Lactate (0.4-2.0) mmol/L Calcium (8.6-10.3) mg/dl Magnesium (1.7-2.4) mg/dl Total Bilirubin (0.2-1.0) mg/dl AST (13-39) U/L ALT (7-52) U/L Alkaline Phosphatase (34-104) U/L Troponin I High Sens (0-14) pg/ml Total Protein (6.0-8.3) gm/dl Albumin (3.4-5.0) gm/dl Globulin (2.5-4.0) gm/dl Albumin/Globulin Ratio (0.9-2) Procalcitonin (0-0.5) ng/ml Urine Color Yellow Urine Appearance Clear (Clear) Urine pH 7.5 (4.5-7.5) Ur Specific [place] 1.007 (1.000-1.030) Urine Protein Negative (Negative) Urine Glucose (UA) Negative (Negative) Urine Ketones Negative (Negative) Urine Blood Negative (Negative) Urine Nitrite Negative (Negative) Urine Bilirubin Negative (Negative) Urine Urobilinogen Negative (Negative) Ur Leukocyte Esterase Negative (Negative) Salicylates (3.0-30) mg/dl Urine Opiates Screen Neg (Neg) Ur Methadone, Qual Neg (Neg) Acetaminophen (10-30) ug/ml Urine Barbiturates Neg (Neg) Ur Phencyclidine (PCP) Neg (Neg) U Amphetamin/Meth Scrn Neg (Neg) MDMA (Ecstasy) Screen Neg (Neg) U Benzodiazepines Scrn Neg (Neg) Ur Cocaine Metabolite Neg (Neg) U Marijuana (THC) Screen Neg (Neg) Ethyl Alcohol mg/dL (<10.0) mg/dl Administered Medications Discontinued Medications Diphenhydramine HCl (Diphenhydramine 50 Mg/Ml Vial) 50 mg IV NOW STA Stop: 01/21/23 14:09 Last Admin: 01/21/23 14:45 Dose: 50 mg Documented By: SEVERINO Diphenhydramine HCl (Diphenhydramine 50 Mg/Ml Vial) 25 mg IV NOW STA Stop: 01/21/23 15:16 Last Admin: 01/21/23 15:20 Dose: 25 mg Documented By: SEVERINO Sodium Chloride (Nss 1000ml) 1,000 mls @ 999 mls/hr IV .Q1H1M ONE Stop: 01/21/23 15:37 Last Admin: 01/21/23 14:45 Dose: 999 mls/hr Documented By: SEVERINO Magnesium Sulfate/Dextrose (Magnesium Sulfate / D5w) 1 gm in 100 mls @ 100 mls/hr IV NOW STA Stop: 01/21/23 15:56 Last Infusion: 01/21/23 17:06 Dose: 0 mls/hr Documented By: Admin: 01/21/23 16:06 Dose: 100 mls/hr Documented By: SEVERINO Ioversol (Optiray 320 100ml) 92 ml IV ONCE ONE Stop: 01/21/23 17:05 Last Admin: 01/21/23 17:04 Dose: 92 ml Documented By: RUBI Lorazepam (Lorazepam 2 Mg/1 Ml Vial) 0.5 mg IV NOW STA Stop: 01/21/23 16:11 Last Admin: 01/21/23 16:15 Dose: 0.5 mg Documented By: NRJenni Imaging Data Radiologist's Impression: Head CT 01/21/23 13:[address] DOSE: 2744.44 mGy.cm HISTORY: Altered mental status. TECHNIQUE: Multiaxial CT images of the head were performed without the use of intravenous contrast. Automated exposure control was utilized for this study. A dose lowering technique was utilized adhering to the principles of ALARA. Comparison: Head CT 10/16/2022. Findings: Mild motion artifact. The paranasal sinuses and mastoid air cells are clear. The calvarium and skull base are intact. The ventricles and sulci are within normal limits. There is no mass, hematoma, midline shift, or acute infarct. Impression: Mild motion artifact. No definite acute intracranial abnormality. ACT 112: Negative or not required by law. Electronically signed by: Sukhjinder Gant M.D. 01/21/2023 5:04 PM Abdomen/Pelvis CT 01/21/23 15:[address] WITH IV CONTRAST CT DOSE: HISTORY: altered mental status; transaminitis TECHNIQUE: Multiaxial CT images of the abdomen and pelvis were performed following the use of intravenous contrast. A dose lowering technique was utilized adhering to the principles of ALARA. COMPARISON STUDY: Abdomen and pelvis CT 02/07/2012. FINDINGS: Mild dependent changes seen within the lungs posteriorly. No pneumoperitoneum. No pneumatosis. Moderate to severe degenerative changes seen within the bilateral hips. No acute fractures identified. There is a moderate hiatus hernia. Prior cholecystectomy. This likely accounts for the prominence of the common bile duct. This is similar to the prior study. No hepatic masses identified. The main portal vein is patent. The pancreas, spleen, and adrenal glands are unremarkable. The kidneys enhance normally. There is mild bilateral hydroureteronephrosis. This is likely due to the markedly distended bladder. No ureteral stones identified. Normal caliber abdominal aorta. No retroperitoneal or pelvic lymphadenopathy. The uterus and bilateral adnexa are unremarkable. No significant pelvic free fluid. No bowel wall thickening or obstruction. Normal appendix. IMPRESSION: 1. Distended bladder. This likely accounts for the mild bilateral hydroureteronephrosis. If the patient is unable to void, then catheterization recommended for decompression. 2. No bowel wall thickening or obstruction. 3. Normal appendix. 4. Prior cholecystectomy. This likely accounts for the bile duct prominence. 5. Moderate hiatus hernia. ACT 112: Negative or not required by law. Electronically signed by: Sukhjinder Gant M.D. 01/21/2023 5:10 PM Chest X-Ray 01/21/23 17:38 XR chest 1V portable HISTORY: confusion COMPARISON: Chest 06/22/2018. FINDINGS: Slightly rotated study. The lungs are clear. The heart is normal in size. No pleural effusions. No pneumothorax. There is a moderate hiatus hernia again noted. Degenerative changes within the shoulders. No acute fractures. IMPRESSION: No acute process. ACT 112: Negative or not required by law. Electronically signed by: Sukhjinder Gant M.D. 01/21/2023 6:30 PM Discharge Plan Visit Data Chief Complaint: Altered Mental Status Stated Complaint: SHORTNESS OF BREATH,CONFUSION,ALTERED MENTAL STATU ED Provider: Gabriella Springer Discharge Problem: AMS (altered mental status), Hypomagnesemia, Acute hyponatremia, Leukocytosis, Dystonic drug reaction Forms Stand Alone Forms: My [facility] [employer] Prescriptions Prescriptions: No Action benztropine 1 mg tablet 1 mg PO QAM olanzapine 20 mg tablet 20 mg PO HS escitalopram oxalate 20 mg tablet 20 mg PO DAILY Referrals Referrals: Bradley El MD [Primary Care Provider] -
[2023-01-21] MEDS ORDERED: diphenhydrAMINE 50 MG/ML VIAL IV STA ×2 (14:08→15:15)
[2023-01-21 14:34] LABS: Base Excess VBG -1.8 mEq/L; HCO3 VBG 24 mmol/L; Oxygen Saturation VBG < 60.0 %; PCO2 VBG 42 mmHg (38-50); PO2 VBG 30 mmHg; pH VBG 7.36 (7.36-7.41)
[2023-01-21] MEDS ORDERED: SODIUM CHLORIDE 0.9% 1000ML 1,000 ML IV ONE (14:37)
[2023-01-21 14:41] LABS: Basophils # (auto) 0.04 K/uL (0.00-0.20); Basophils % (auto) 0.3 %; Hematocrit (blood only) 39.3 % (37.0-47.0); Immature Granulocytes % (auto) 0.8 %; Lymphocytes # (auto) 1.29 K/uL (1.20-3.40); Lymphocytes % (auto) 9.9 %; Mean Corpuscular Hemoglobin 30.4 pg (25.0-34.0); Mean Corpuscular Hgb Conc 35.6 g/dL (32.0-36.0); Mean Corpuscular Volume 85.4 fL (80.0-100.0); Monocytes # (auto) 0.94 K/uL (0.11-0.59); Monocytes % (auto) 7.2 %; Neutrophils # (auto) 10.64 K/uL (1.40-6.50); Neutrophils % (auto) 81.8 %; Platelet Count 156 K/uL (130-400); RDW Coefficient of Variation 13.1 % (11.5-14.5); RDW Standard Deviation 40.5 fL (36.4-46.3); White Blood Count 13.01 K/ul (4.8-10.8)
[2023-01-21 14:55] LABS: Albumin Globulin Ratio 1.3 (0.9-2); Albumin Level 3.8 gm/dl (3.4-5.0); BUN Creatinine Ratio 16.1 (10-20); Bilirubin,Total 1.7 mg/dl (0.2-1.0); Calcium 8.5 mg/dl (8.6-10.3); Creatinine Clr Calc Pharmacy 100.3 ml/min; Est GFR (African American) 110.4 ml/min; Est GFR (Non-African American) 95.3 ml/min; Magnesium 1.3 mg/dl (1.7-2.4); Potassium 4.1 mmol/L (3.5-5.1); Total Protein 6.8 gm/dl (6.0-8.3)
[2023-01-21] MEDS ORDERED: MAGNESIUM SULFATE / D5W 1 GM/100 ML BAG IV STA (14:57)
[2023-01-21 14:58] LABS: Acetaminophen < 3 ug/ml (10-30); Salicylate < 3.0 mg/dl (3.0-30)
[2023-01-21 15:03] LABS: Troponin I High Sensitivity 4.8 pg/ml (0-14)
[2023-01-21] MEDS ORDERED: LORazepam 2 MG/1 ML VIAL IV STA (16:10)
[2023-01-21] MEDS ORDERED: OPTIRAY 320 100ml IV ONE (17:04)
--- NOTE | 2023-01-21 17:06 | CT Scan Report ---
HEAD CT NONCONTRAST CT DOSE: 2744.44 mGy.cm HISTORY: Altered mental status. TECHNIQUE: Multiaxial CT images of the head were performed without the use of intravenous contrast. A utomated exposure control was utilized for this study. A dose lowering technique was utilized adheri ng to the principles of ALARA. Comparison: Head CT 10/16/2022. Findings: Mild motion artifact. The paranasal sinuses and mastoid air cells are clear. The calvarium and skull base are intact. The ventricles and sulci are within normal limits. There is no mass, hemat efren, midline shift, or acute infarct. Impression: Mild motion artifact. No definite acute intracranial abnormality. ACT 112: Negative or not required by law. Electronically signed by: Sukhjinder Gant M.D. 01/21/2023 5:04 PM
--- NOTE | 2023-01-21 17:12 | CT Scan Report ---
ABDOMEN AND PELVIS CT WITH IV CONTRAST CT DOSE: HISTORY: altered mental status; transaminitis TECHNIQUE: Multiaxial CT images of the abdomen and pelvis were performed following the use of intrave nous contrast. A dose lowering technique was utilized adhering to the principles of ALARA. COMPARISON STUDY: Abdomen and pelvis CT 02/07/2012. FINDINGS: Mild dependent changes seen within the lungs posteriorly. No pneumoperitoneum. No pneumatos is. Moderate to severe degenerative changes seen within the bilateral hips. No acute fractures identi fied. There is a moderate hiatus hernia. Prior cholecystectomy. This likely accounts for the prominen ce of the common bile duct. This is similar to the prior study. No hepatic masses identified. The luis n portal vein is patent. The pancreas, spleen, and adrenal glands are unremarkable. The kidneys enhan ce normally. There is mild bilateral hydroureteronephrosis. This is likely due to the markedly disten ded bladder. No ureteral stones identified. Normal caliber abdominal aorta. No retroperitoneal or pel juan lymphadenopathy. The uterus and bilateral adnexa are unremarkable. No significant pelvic free flu id. No bowel wall thickening or obstruction. Normal appendix. IMPRESSION: 1. Distended bladder. This likely accounts for the mild bilateral hydroureteronephrosis. If the patie nt is unable to void, then catheterization recommended for decompression. 2. No bowel wall thickening or obstruction. 3. Normal appendix. 4. Prior cholecystectomy. This likely accounts for the bile duct prominence. 5. Moderate hiatus hernia. ACT 112: Negative or not required by law. Electronically signed by: Sukhjinder Gant M.D. 01/21/2023 5:10 PM
[2023-01-21 17:33] LABS: Appearance Urine Clear (Clear); Bilirubin Urine Negative (Negative); Blood Urine Negative (Negative); Color Urine Yellow; Glucose Urine UA Negative (Negative); Ketones Urine Negative (Negative); Leukocyte Esterase Urine Negative (Negative); Nitrite Urine Negative (Negative); Protein Urine Negative (Negative); Specific Gravity Urine 1.007 (1.000-1.030); Urobilinogen Urine Negative (Negative); pH Urine 7.5 (4.5-7.5)
[2023-01-21 17:53] LABS: Amphetamines+Metham, Urine Neg (Neg); Barbiturates, Urine Neg (Neg); Benzodiazepine, Urine Neg (Neg); Cocaine, Urine Neg (Neg); MDMA (Ecstacy), Urine Neg (Neg); Methadone, Urine Neg (Neg); Opiate, Urine Neg (Neg); Phencyclidine, Urine Neg (Neg)
--- NOTE | 2023-01-21 18:09 | History & Physical Report ---
Date of Service January 21, 2023 Assessment & Plan (1) AMS (altered mental status): (2) Acute hyponatremia: Plan: Patient is 62 y/o F with PMH bipolar disorder, GERD presented to ER with her son for AMS, and lip smacking. Drank 10 bottles water prior to arrival. Reported confused upon ER arrival. In ER given total 75 mg IV Benadryl without improvement then given Ativan 0.5 mg IV. During ER course patient with reported less lipsmacking and has become calm and more alert. Initial Na:123. Received 75ml NSS in ER, 1GM IV magnesium sulfate Repeat Na: 128, urine osmolality: 72, serum osmolality: 254 WBC: 13. UA unremarkable, CXR without infiltrate per my interpretation Lactate: 2.4-->2.1. Trend lactate Negative urine drug screen BMP Q4H to monitor Na Giving additional magnesium sulfate/dextrose Nephrology consult (3) Hypomagnesemia: Plan: Magnesium: 1.3 In ER given 1 g magnesium sulfate Continue replace Magnesium level in a.m. (4) Dystonic drug reaction: Plan: Lipsmacking reported for past year, noted to be worse today DDX: Tardive dyskinesia from medications In ER given IV Benadryl, Ativan with reported decreased symptoms Monitor May need to consider psychiatry/neurology consult (5) Elevated LFTs: Plan: T bili: 1.7, AST: 105, ALT: 130, Alk phos: [address] Patient denies abdominal pain CT abd/pelvis: Distended bladder. This likely accounts for the mild bilateral hydroureteronephrosis. No bowel wall thickening or obstruction. Normal appendi x. Prior cholecystectomy. This likely accounts for the bile duct prominence. Moderate hiatus hernia. US RUQ pending to r/o choledocholithiasis CMP in am Bladder scan pending to r/o retention. Patient with frequent urination while in ER that has been unmeasured. External catheter ordered to measure output (6) Morbid obesity: Plan: BMI: 36 Lifestyle modifications recommended DVT Prophylaxis SCDs Full Code as per discussion with pt Follows with Dr El for routine care Pt was seen and care coordinated with Dr Martinez. See addendum History of Present Illness Chief Complaint: AMS Primary Care Provider: Bradley El MD Patient is 62 y/o F with PMH bipolar disorder, GERD presented to ER with her son for AMS, and lip smacking. History obtained from patient and patient's son. Patients son states that he did not see her yesterday but that patient's ex- spoke to patient on phone last night and reported patient seemed at baseline mental status when talking on phone last night. Patient's son states that patient with poor short-term memory that he has noted been a problem for the past year. He also has noted intermittent lipsmacking type movements of patient's mouth for the past year. He states today when he picked patient up to go to [employer] she had noted increased lipsmacking type movements and had a empty diet Coke bottle that she was continuingly trying to drink out of. Patient states she felt like she was SOB this morning, Denies CP. Per patient's son states that he dropped her off at [employer] and when he picked her up an hour later she had increased confusion. Son states that he took her home and gave her a piece of toast. He states in a 2-hour time span she drank 10 bottles of water. It is reported upon ER arrival patient very confused and agitated. It is reported that patient had noted lipsmacking and was repeatedly trying to drink out of empty cup. Patient was given total 75 mg IV Benadryl without improvement then given Ativan 0.5 mg IV. During ER course patient with reported less lipsmacking and has become calm and more alert. Patient reports that she has been on Cogentin, Lexapro, and Zyprexa for years and denies any recent medication changes. States follows with PCP and does not see psychiatrist. States while in ER has been urinating a lot and had 2-3 episodes of incontinence. Denies fever/chills, diaphoresis, [place], dizziness, syncope, vision changes, neck pain, CP, orthopnea, palpitations, cough, sore throat, rhinorrhea, abdominal pain, paresthesias, extremity weakness, extremity edema, rashes, dysuria, hematuria. Denies drug or ETOH use. Allergies Allergy/AdvReac Type Severity Reaction Status Date / Time trazodone Allergy Severe TACHYCARDIC Verified 06/22/18 23:23 Penicillins Allergy Unknown . Verified 10/16/22 22:42 Sulfa (Sulfonamide Allergy Unknown "SULFA Verified 10/16/22 22:42 Antibiotics) DRUGS" codeine AdvReac Unknown GI UPSET Verified 06/22/18 23:23 Carbohydrate Allergy Intermediate MAKES Uncoded 06/22/18 23:23 HEART RACE morphine and related AdvReac Unknown Uncoded 10/16/22 22:43 Home Medications Medication Instructions Recorded Confirmed Type benztropine 1 mg tablet 1 mg PO QPM 06/22/18 01/21/23 History escitalopram oxalate 20 mg tablet 20 mg PO QPM 06/22/18 01/21/23 History olanzapine 20 mg tablet 20 mg PO QPM 06/22/18 01/21/23 History Past Med/Surg History Medical History Alcohol abuse Benzodiazepine abuse Benzodiazepine withdrawal with complication Cellulitis Dental infection DVT (deep venous thrombosis) Epigastric pain Facial cellulitis H pylori ulcer Hypokalemia Irritable bowel syndrome Leg pain, right Mild neurocognitive disorder Muscular aches Nausea Neurocognitive disorder Nicotine abuse Palpitations Pharyngitis Psychogenic movement disorder Seizure-like activity Sore throat Surgical History History of cholecystectomy Family History Other No significant family history Social History Smoking Status: Current every day smoker Tobacco Type: Cigarettes Cigarettes Per Day: 3 cigarettes per day; Second Hand Exposure: No; Do You Dip or Chew Tobacco: No; Tobacco Cessation Education Requested by Patient: No Hx Alcohol Use: No Hx Substance Use: No Preferred Language: Cantonese Spanish Communication Ability: Effective Instrument Technologist Required: No Beliefs That Will Affect Care: None marital status: Current Living Situation: Alone current occupational status: disabled Other Information That Helps Us Care for You: No Feels Safe at Home: Yes Safety Concerns: Feels Safe At This Time Assistive Devices: None Review of Systems Review of Systems: All systems reviewed & are unremarkable except as noted in HPI & below Physical Exam Physical Exam: General: +lip smacking type mouth movements no apparent distress, overweight Head: normocephalic, atraumatic Eyes: PERRL, EOM's intact, conjunctiva non-injected, anicteric ENT: normal inspection external ears, nose, mucous membranes moist Neck: supple, trachea midline Lungs: clear, no respiratory distress, no wheezing/rhonchi/rales CV: RRR, no murmur, no JVD, no pretibial edema Abd: normal BS, soft, non-tender Ext: no cyanosis, no calf tenderness Neuro: A&O x 3 at this time, +lip smacking, no other focal deficits noted, normal affect Skin: warm, dry Results & Data Results & Data Vital Signs (Past 12 Hours) Vital Signs Temp Pulse Pulse Resp BP BP Pulse Ox 01/21/23 17:54 73 01/21/23 17:14 92 01/21/23 16:36 86 20 116/71 93 01/21/23 15:59 111 H 24 93 01/21/23 14:11 01/21/23 14:24 98 H 01/21/23 13:32 36.1 C L 91 H 20 154/100 H 94 O2 Del Method 01/21/23 17:54 01/21/23 17:14 Room Air 01/21/23 16:36 Room Air 01/21/23 15:59 Room Air 01/21/23 14:11 Room Air 01/21/23 14:24 01/21/23 13:32 Room Air Laboratory Results Short CBC 01/21/23 Range/Units 14:22 WBC 13.01 H (4.8-10.8) K/ul Hgb 14.0 (12.0-16.0) g/dl Hct 39.3 (37.0-47.0) % Plt Count 156 (130-400) K/uL BMP 01/21/23 01/21/23 14:22 18:28 Sodium 123 L 128 L Potassium 4.1 3.5 Chloride 92 L 98 Carbon Dioxide 24 22 BUN 10 9 Creatinine 0.62 0.56 L Glucose 102 H 90 Calcium 8.5 L 8.9 Liver Function 01/21/23 Range/Units 14:22 Total Bilirubin 1.7 H (0.2-1.0) mg/dl AST 105 H (13-39) U/L ALT 130 H (7-52) U/L Alkaline Phosphatase 92 (34-104) U/L Albumin 3.8 (3.4-5.0) gm/dl Urine 01/21/23 Range/Units 17:12 Urine Color Yellow Urine Appearance Clear (Clear) Urine pH 7.5 (4.5-7.5) Ur Specific [place] 1.007 (1.000-1.030) Urine Protein Negative (Negative) Urine Glucose (UA) Negative (Negative) Diagnostic Findings Head CT 01/21/23 13:[address] DOSE: 2744.44 mGy.cm HISTORY: Altered mental status. TECHNIQUE: Multiaxial CT images of the head were performed without the use of intravenous contrast. Automated exposure control was utilized for this study. A dose lowering technique was utilized adhering to the principles of ALARA. Comparison: Head CT 10/16/2022. Findings: Mild motion artifact. The paranasal sinuses and mastoid air cells are clear. The calvarium and skull base are intact. The ventricles and sulci are within normal limits. There is no mass, hematoma, midline shift, or acute infarct. Impression: Mild motion artifact. No definite acute intracranial abnormality. ACT 112: Negative or not required by law. Electronically signed by: Sukhjinder Gant M.D. 01/21/2023 5:04 PM Abdomen/Pelvis CT 01/21/23 15:[address] WITH IV CONTRAST CT DOSE: HISTORY: altered mental status; transaminitis TECHNIQUE: Multiaxial CT images of the abdomen and pelvis were performed following the use of intravenous contrast. A dose lowering technique was utilized adhering to the principles of ALARA. COMPARISON STUDY: Abdomen and pelvis CT 02/07/2012. FINDINGS: Mild dependent changes seen within the lungs posteriorly. No pneumoperitoneum. No pneumatosis. Moderate to severe degenerative changes seen within the bilateral hips. No acute fractures identified. There is a moderate hiatus hernia. Prior cholecystectomy. This likely accounts for the prominence of the common bile duct. This is similar to the prior study. No hepatic masses identified. The main portal vein is patent. The pancreas, spleen, and adrenal glands are unremarkable. The kidneys enhance normally. There is mild bilateral hydroureteronephrosis. This is likely due to the markedly distended bladder. No ureteral stones identified. Normal caliber abdominal aorta. No retroperitoneal or pelvic lymphadenopathy. The uterus and bilateral adnexa are unremarkable. No significant pelvic free fluid. No bowel wall thickening or obstruction. Normal appendix. IMPRESSION: 1. Distended bladder. This likely accounts for the mild bilateral hydroureteronephrosis. If the patient is unable to void, then catheterization recommended for decompression. 2. No bowel wall thickening or obstruction. 3. Normal appendix. 4. Prior cholecystectomy. This likely accounts for the bile duct prominence. 5. Moderate hiatus hernia. ACT 112: Negative or not required by law. Electronically signed by: Sukhjinder Gant M.D. 01/21/2023 5:10 PM Chest X-Ray 01/21/23 17:38 XR chest 1V portable HISTORY: confusion COMPARISON: Chest 06/22/2018. FINDINGS: Slightly rotated study. The lungs are clear. The heart is normal in size. No pleural effusions. No pneumothorax. There is a moderate hiatus hernia again noted. Degenerative changes within the shoulders. No acute fractures. IMPRESSION: No acute process. ACT 112: Negative or not required by law. Electronically signed by: Sukhjinder Gant M.D. 01/21/2023 6:30 PM ECG Additional Comments: Sinus rhythm, rate 90 per my interpretation Code Status & VTE Plan VTE Prophylaxis Plan VTE Prophylaxis will be ordered: Yes Supervising Physician Co-Signing Physician Notes I have seen and examined the patient and have discussed the case with the provider above. I agree with the assessment and plan as stated. 62 yo F presented with confusion with workup consistent with severe hyponatremia. Sodium on workup is 123. She was initially combative in the ER and reportedly confused. She was treated wtih 75mg IV diphenhydramine and Ativan IV. I evaluated her after this and she appeared calm and lethargic but was able to awaken and talk with me. She was answering questions appropriately and didn't appear significantly confused. She reports having diarrhea (3 episodes per day x 2 days) and she also reports increasing her free water intake daily as she was on the "GoLo" diet for the past two weeks. She denies abdominal pain, nausea, vomiting or other symptoms. She has poncho eating solid food, stating she had toast and ice cream at [employer] this morning and is also hungry and now requesting food. Workup also reveals Mag 1.3. She is notably on SSRI therapy and Zyprexa with lip smacking behavior reported over the past year possibly consistent with extrapyramidal symptoms. Agree with holding this and SSRI now as it may be contributing to lower sodium. Her exam is otherwise unremarkable except as noted above. Abdominal pain or distension is not present. Labwork otherwise reveals CBC with a slightly elevated WBC count of 13K, normal H/H and platelets. VBG was normal. No other severe electrolyte abnormalities other than mentioned above and normal renal function and glucose. Lactate is slightly elevated at 2.1. Urine tox screen is negative and there is no evidence of salicylate toxicity, alcohol intoxication, or Tylenol toxicity. CXR is clear of acute issues, and CT a/p with IV contrast revealed a distended bladder and a post cholecystectomy bile duct prominence. Given the elevated LFTs and elevated total bilirubin will order right upper quadrant ultrasound to get a closer look and ensure no stone present. The lack of abdominal pain is reassuring there is no obstructive process. Will trend liver panel in am. Hyponatremia multifactorial including increased free water intake and lower so lid food intake while on the GoLo diet for the past two weeks. Ongoing SSRI use, that may also be contributing. Urinary distension is present on exam wtih frequent urination in the ER. agree wtih bladder scans to rule out retention, and she is higher risk for this with ongoing antipsychotic use. Will hold this with the concerning lip smacking behaviors suggestive of extrapyramidal symptoms that prompted intravenous diphenhydramine therapy on arrival. Will also hold SSRI. Consulting nephrology and frequent reassessments of Na overnight (q4H). She already went from 123 to 128 with no intervention in the ER (1L bolus was not given). Out of concern for overcorrection, will give an additional 2 grams of IV magnesium which are in dextrose. Start dextrose if Na rises >130 overnight. Signed out to student financial aid manager to follow. DO Juan
--- NOTE | 2023-01-21 18:32 | XRay Report ---
XR chest 1V portable HISTORY: confusion COMPARISON: Chest 06/22/2018. FINDINGS: Slightly rotated study. The lungs are clear. The heart is normal in size. No pleural effusi ons. No pneumothorax. There is a moderate hiatus hernia again noted. Degenerative changes within the shoulders. No acute fractures. IMPRESSION: No acute process. ACT 112: Negative or not required by law. Electronically signed by: Sukhjinder Gant M.D. 01/21/2023 6:30 PM
[2023-01-21 19:10] LABS: BUN Creatinine Ratio 16.1 (10-20); Calcium 8.9 mg/dl (8.6-10.3); Est GFR (African American) 114.2 ml/min; Est GFR (Non-African American) 98.5 ml/min; Potassium 3.5 mmol/L (3.5-5.1)
[2023-01-21 19:54] LABS: Creatinine Urine Random 6.5 mg/dl
[2023-01-21] MEDS ORDERED: POLYETHYLENE (MIRALAX) 17 GM PACK PO PRN (20:59)
[2023-01-21] MEDS ORDERED: ONDANSETRON INJ 2 MG/ML 2 ML VIAL IV PRN (20:59)
[2023-01-21] MEDS: MAGNESIUM SULFATE / D5W 1 GM/100 ML BAG IV SCH ×2 (21:12→23:55)
--- NOTE | 2023-01-21 22:02 | Ultrasound Report ---
Exam(s): US LIVER EXAM: US Abdomen Limited, Right Upper Quadrant CLINICAL HISTORY: Reason for exam: elev LFT, elev bili, r/o CBD stone. TECHNIQUE: Real-time ultrasound of the right upper quadrant with image documentation. COMPARISON: No relevant prior studies available. FINDINGS: Liver: Liver measures 15.4 cm. No focal lesion. No intrahepatic bile duct dilation. Gallbladder: Cholecystectomy. Common bile duct: Dilatation of the distal common bile duct measuring 1.2 cm. Pancreas: Pancreas is unremarkable as visualized. Right kidney: Right kidney measures 10.5 cm. No hydronephrosis. Other vasculature: Portal vein is patent and normally directed. IMPRESSION: 1. Dilatation of the distal common bile duct measuring 1.2 cm. While this might represent reservoir effect in the setting of cholecystectomy, if there is laboratory evidence of biliary obstruction, consider MRCP. No choledocholithiasis directly visualize on this exam. Electronically signed by: Nik Oshea M.D. 01/21/23 22:01 PM
[2023-01-21 22:54] LABS: BUN Creatinine Ratio 13.3 (10-20); Calcium 9.1 mg/dl (8.6-10.3); Creatinine Clr Calc Pharmacy 100.3 ml/min; Est GFR (African American) 111.6 ml/min; Est GFR (Non-African American) 96.3 ml/min; Potassium 3.5 mmol/L (3.5-5.1)
[2023-01-22] MEDS ORDERED: DEXTROSE 5% 1,000 ML IV ONE (00:45)
[2023-01-22] MEDS ORDERED: LORazepam 0.5 MG TAB PO STA (01:36)
[2023-01-22 02:21] LABS: Basophils # (auto) 0.03 K/uL (0.00-0.20); Basophils % (auto) 0.4 %; Eosinophils # (auto) 0.01 K/uL (0.00-0.50); Eosinophils % (auto) 0.1 %; Hematocrit (blood only) 39.6 % (37.0-47.0); Hemoglobin 14.2 g/dl (12.0-16.0); Immature Granulocytes # (auto) 0.03 K/uL (0.01-0.20); Immature Granulocytes % (auto) 0.4 %; Lymphocytes # (auto) 1.38 K/uL (1.20-3.40); Lymphocytes % (auto) 16.3 %; Mean Corpuscular Hgb Conc 35.9 g/dL (32.0-36.0); Mean Corpuscular Volume 83.7 fL (80.0-100.0); Mean Platelet Volume 12.8 fL (9.4-12.4); Monocytes # (auto) 1.01 K/uL (0.11-0.59); Monocytes % (auto) 11.9 %; Neutrophils # (auto) 6.02 K/uL (1.40-6.50); Neutrophils % (auto) 70.9 %; Platelet Count 163 K/uL (130-400); RDW Coefficient of Variation 12.9 % (11.5-14.5); RDW Standard Deviation 39.5 fL (36.4-46.3); Red Blood Count 4.73 M/uL (4.20-5.40); White Blood Count 8.48 K/ul (4.8-10.8)
[2023-01-22] MEDS ORDERED: LORazepam 2 MG/1 ML VIAL IV STA (02:37)
[2023-01-22 02:41] LABS: Albumin Globulin Ratio 1.3 (0.9-2); Albumin Level 3.5 gm/dl (3.4-5.0); BUN Creatinine Ratio 15.5 (10-20); Bilirubin,Total 1.3 mg/dl (0.2-1.0); Calcium 8.5 mg/dl (8.6-10.3); Creatinine Clr Calc Pharmacy 84.8 ml/min; Est GFR (African American) 104.3 ml/min; Globulin 2.6 gm/dl (2.5-4.0); Magnesium 2.4 mg/dl (1.7-2.4); Phosphorus 3.1 mg/dl (2.5-4.9); Potassium 3.5 mmol/L (3.5-5.1); Total Protein 6.1 gm/dl (6.0-8.3)
--- NOTE | 2023-01-22 02:57 | Magnetic Resonance Report ---
Exam(s): MRI MRCP EXAM: MR Abdomen Without Intravenous Contrast, MRCP Protocol CLINICAL HISTORY: Reason for exam: abn lfts. TECHNIQUE: Multiplanar magnetic resonance images of the abdomen without intravenous contrast using MRCP protocol. COMPARISON: CT abdomen and pelvis 01/21/23 FINDINGS: Evaluation is limited due to patient claustrophobia. Limited examination performed consisting of axial and coronal FIESTA sequences. There is moderate hiatal hernia. Liver is enlarged. No focal hepatic lesion is visible. Gallbladder is surgically absent. There is mild biliary dilatation, with common bile duct measuring 9 mm. No choledocholithiasis is visible. Spleen, pancreas, adrenal glands, and kidneys appear unremarkable. There is no aortic aneurysm. Bowel gas pattern is nonobstructive. IMPRESSION: 1. Limited exam consisting of only 2 sequences. 2. Cholecystectomy. Common bile duct enlargement measuring 9 mm. By imaging, this could represent reservoir effect. No choledocholithiasis is visualized. 3. Moderate hiatal hernia. Electronically signed by: Nik Oshea M.D. 01/22/23 02:56 AM
[2023-01-22 08:35] LABS: BUN Creatinine Ratio 14.5 (10-20); Calcium 8.6 mg/dl (8.6-10.3); Creatinine Clr Calc Pharmacy 87.2 ml/min; Est GFR (African American) 106.6 ml/min; Potassium 3.9 mmol/L (3.5-5.1)
--- NOTE | 2023-01-22 09:56 | Nephrology Consultation ---
Date of Consultation January 22, 2023 Assessment & Plan (1) Acute hyponatremia: (2) AMS (altered mental status): Patient had classic water intoxication which essentially means she drank incredible amount of water in a very short period Of time essentially overwhelming the fluid and electrolyte regulation system. We do not have any recent blood work to compare. In such situations serum sodium can drop very fast and this can be very dangerous even fatal. Her acute mental status change is absolutely consistent with this. Also in this acute drop in serum sodium it is acceptable to have a fast correction of sodium. The standard recommendation of slow correction is more for chronic hyponatremia related with SIADH. With normal sodium her mental status is completely back to baseline. I did try to explain to the patient that she cannot drink such massive amount of fluid in such a short period of time and this can be fatal. Fortunately she did not have acute seizure with rapid drop in her blood sodium. Her urine osmolarity as well as clinical picture is absolutely consistent with this situation. No further diagnostic work-up is needed. I will try to lower the serum sodium slightly but most likely it will not be successful. Give 1 dose of DDAVP for micro and continue D5 water till morning tomorrow. History of Present Illness Reason for Consultation: Hyponatremia Attending Physician: Felipe Bardales MD History of Present Illness 62-year-old female admitted yesterday after she presented to the emergency depa rtment with altered mental status. Patients son states that he did not see her the day before but that patient's ex- spoke to patient on phone the night before and reported patient seemed at baseline mental status when talking on phone.Son stated that when he picked patient up to go to [employer] she had noted increased lipsmacking type movements and had a empty diet Coke bottle that she was continuingly trying to drink out of. patient's son states that he dropped her off at [employer] and when he picked her up an hour later she had increased confusion. Son states that he took her home and gave her a piece of toast.He stated in a 2-hour time span she drank 10 bottles of water. It is reported upon ER arrival patient very confused and agitated.na on admission was 123 and it has gone up quite fast to 140. 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 She initially received normal saline but because of fast rate of correction was changed over to D5 water but that did not really slow down the rate of correction. At this time her vital signs are stable and some improvement in the mental statu s She is getting D5 water at this time Patient is not really able to give much history at this time as she does not remember much of what happened. However at this time she feels pretty normal with regards to mental status. Review of system-----unable to obtain as she does not recall anything what happened yesterday. H&P was reviewed. Allergies Allergy/AdvReac Type Severity Reaction Status Date / Time trazodone Allergy Severe TACHYCARDIC Verified 06/22/18 23:23 Penicillins Allergy Unknown . Verified 10/16/22 22:42 Sulfa (Sulfonamide Allergy Unknown "SULFA Verified 10/16/22 22:42 Antibiotics) DRUGS" codeine AdvReac Unknown GI UPSET Verified 06/22/18 23:23 morphine AdvReac Unknown Verified 01/22/23 00:42 Home Medications Medication Instructions Recorded Confirmed Type benztropine 1 mg tablet 1 mg PO QPM 06/22/18 01/21/23 History escitalopram oxalate 20 mg tablet 20 mg PO QPM 06/22/18 01/21/23 History olanzapine 20 mg tablet 20 mg PO QPM 06/22/18 01/21/23 History Patient History Medical History Alcohol abuse Benzodiazepine abuse Benzodiazepine withdrawal with complication Cellulitis Dental infection DVT (deep venous thrombosis) Epigastric pain Facial cellulitis H pylori ulcer Hypokalemia Irritable bowel syndrome Leg pain, right Mild neurocognitive disorder Muscular aches Nausea Neurocognitive disorder Nicotine abuse Palpitations Pharyngitis Psychogenic movement disorder Seizure-like activity Sore throat Surgical History History of cholecystectomy Family History Other No significant family history Social History Smoking Status: Current every day smoker Tobacco Type: Cigarettes Cigarettes Per Day: 3 cigarettes per day; Second Hand Exposure: No; Do You Dip or Chew Tobacco: No; Tobacco Cessation Education Requested by Patient: No Hx Alcohol Use: No Hx Substance Use: No Preferred Language: Cantonese Nigerien Communication Ability: Effective [employer] Gold Attendant Required: No Beliefs That Will Affect Care: None marital status: Current Living Situation: Alone current occupational status: disabled Other Information That Helps Us Care for You: No Feels Safe at Home: Yes Safety Concerns: Feels Safe At This Time Assistive Devices: None Physical Exam Physical Exam: Awake alert oriented x3. Normal speech Constitutional: No respiratory distress ENMT: Mucous membrane is moist Neck: Neck is supple no JVD Respiratory: Bilateral clear to auscultate Cardiovascular: Regular rate and rhythm no murmur Gastrointestinal (Abdomen): Soft nontender Skin: No rashes noted Results & Data Vital Signs (Past 12 Hours) Vital Signs Temp Pulse Pulse Resp BP Pulse Ox O2 Del Method 01/22/23 08:00 82 01/22/23 03:00 36.9 C 91 H 21 121/72 96 Room Air 01/22/23 02:20 36.9 C 98 H 14 122/82 95 Room Air 01/21/23 23:00 36.9 C 61 19 99/54 L 94 Room Air 01/21/23 23:10 74 Laboratory Results Urine osmolarity 72 serum sodium 123 on admission
[2023-01-22] MEDS ORDERED: DESMOPRESSIN ACETATE 4 MCG in SODIUM CHLORIDE 0.9% 50 ML IV ONE (10:00)
[2023-01-22 10:23] LABS: BUN Creatinine Ratio 13.2 (10-20); Calcium 8.7 mg/dl (8.6-10.3); Creatinine Clr Calc Pharmacy 88.5 ml/min; Est GFR (African American) 107.1 ml/min; Est GFR (Non-African American) 92.4 ml/min; Potassium 4.1 mmol/L (3.5-5.1)
--- NOTE | 2023-01-22 14:40 | Hospitalist Progress Note ---
Date of Service January 22, 2023 Assessment & Plan (1) AMS (altered mental status): (2) Acute hyponatremia: Plan 62 y/o F with PMH of bipolar disorder, GERD presented to ER 01/21 with her son for AMS, and lip smacking. Drank 10 bottles water w/in 2 hrs time prior to arrival. Reported confused upon ER arrival. She is being managed for the following: Metabolic encephalopathy: Likely secondary to acute hyponatremia. Utox neg at presentation. Acute hyponatremia: Admitting sodium of 123/serum osmolality 254/urine osmolality 72, likely acute drop secondary to excessive free water intake. Mentation back to baseline, patient reports improvement in her headache and lip smacking today. Sodium has corrected to around 138 today morning, discussed with nephrology, patient received 1 dose of DDAVP and plan to continue with D5W till tomorrow morning. Maintain p.o. fluid intake restriction of around 2 L a day. Increase blood lactic acid level: Lactate 2.4 at presentation, down trended to normal. WBC was elevated at presentation (normalized next day) but UA and CXR unremarkable at presentation. Procalcitonin was negative. Patient afebrile. Continue to monitor. Hypomagnesemia: Admitting magnesium of 1.3, monitor and replete. Dystonic drug reaction: Lipsmacking reported for past year, noted to be worse on the day of arrival. DDX: Tardive dyskinesia from medications In ER given IV Benadryl, Ativan with reported decreased symptoms Monitor Psychiatry consulted for help with medications management. Elevated LFTs: At presentation -- T bili: 1.7, AST: 105, ALT: 130, Alk phos: 92 Patient denies abdominal pain Admitting CT abd/pelvis: Distended bladder. This likely accounts for the mild bilateral hydroureteronephrosis. No bowel wall thickening or obstruction. Normal appendix. Prior cholecystectomy. This likely accounts for the bile duct prominence. Moderate hiatus hernia. US RUQ without choledocholithiasis. MRCP with CBD 9 mm, likely reservoir effect due to cholecystectomy status. Follow-up LFT, downtrending. Morbid obesity: BMI: 36. Lifestyle modifications recommended. DVT Prophylaxis: SCDs Full Code Follows with Dr El for routine care Admission and Anticipated Discharge Date Admission Date: January 21, 2023 Subjective Patient seen and examined at bedside as a follow-up of acute hyponatremia and metabolic encephalopathy. Patient was lying in bed, on room air, NAD, reports improving headache, is oriented, denies any fever/chills/chest pain/cough/myalgia. Can initiate patient's diet. Maintain fluid restriction of 2 L. Physical Exam Physical Exam: GENERAL: Alert and oriented x3. NAD, on RA. HEENT: No pallor, no icterus. Pupils equal, round and reactive to light. Oral mucosa moist. NECK: No JVD, no neck masses. HEART: S1 and S2 heard. Regular rate and rhythm. No murmur, no gallop. RESPIRATORY SYSTEM: Normal AP diameter. No accessory muscle use. No wheezing, no crackles. ABDOMEN: Soft, bowel sounds present, nontender, no distention. CENTRAL NERVOUS SYSTEM: No facial droop. Speech is clear. Obeys simple commands. Moves extremities. EXTREMITIES: No edema, no erythema seen. Results & Data Results & Data Vital Signs (Past 12 Hours) Vital Signs Temp Pulse Pulse Resp BP Pulse Ox O2 Del Method 01/22/23 11:00 36.7 C 89 18 134/73 97 Room Air 01/22/23 08:00 82 01/22/23 03:00 36.9 C 91 H 21 121/72 96 Room Air
[2023-01-22 15:57] LABS: Calcium 8.4 mg/dl (8.6-10.3); Creatinine Clr Calc Pharmacy 65.4 ml/min; Est GFR (African American) 76.3 ml/min; Est GFR (Non-African American) 65.8 ml/min; Potassium 3.7 mmol/L (3.5-5.1)
--- NOTE | 2023-01-22 19:44 | Psychiatric Consultation ---
Date of Consultation January 22, 2023 Impression / Recommendations Impression 62 y/o woman with, probably, bipolar disorder who may well be having medication side effects. I have reason to doubt that she's able to provide a useful history of other medication trials or that she's able to attribute adverse effects correctly (not least because she reports taking medications she's almost certainly not taking). She's now had her medications stopped. Pt almost certainly needs a mood stabilizer. That would include lithium, valproate, carbamazepine, lamotrigine, or one of a number of antipsychotics. No other medications (including topiramate, oxcarbazepine, or gabapentinoids) has support from RCT's for bipolar efficacy (and all the ones I specified have been shown to lack it). She's unwilling to consider lithium, and titration of lamotrigine to even a minimal possibly-effective dose is likely to take at least 4 weeks. It's entirely possible that a different antipsychotic might be better- tolerated, but trials of those carry a risk of lack of efficacy as well as of the same or worse side effects. Despite complaining of sedation, she tells me she wants to make sure that whatever she takes will help her sleep, so selecting a less-sedating antipsychotic may end up being unacceptable. I have no way to be certain, but I suspect the escitalopram is for panic, for which it would usually be a good choice with a low risk of side effects. Antidepressants are not typically effective for bipolar depression (mood stabilizers are needed for this), but would still be effective for other conditions they treat. (1) Bipolar disorder: Plan I recommend resuming escitalopram, as it seems very unlikely it's causing movement disorder symptoms or marked sedation and because she's at risk of discontinuation symptoms very soon. I do not recommend a trial of bupropion, which often exacerbates anxiety and does not treat panic (and, as an antidepressant, is probably not going to do much for bipolar depression). Pt should be on a mood stabilizer. The most appropriate choices under these circumstances (pt in PCU for metabolic disturbances without current good access to outpatient psychiatric follow-up and therefore should avoid new medications that must be titrated under close observation) would be antipsychotic mood stabilizers. She seems possibly to have had failed trials of risperidone and quetiapine, and I'd be hesitant to recommend ziprasidone (or lurasidone) with her current metabolic disturbances. Aripiprazole might be an option, though I'd be somewhat surprised if she hadn't had a previous trial of it (and it's not li lisa to help her sleep, which she wants). The remaining options are mostly either analogues of those drugs with similar side effect profiles or higher-risk drugs such as clozapine. One exception might be cariprazine ("Vraylar"), but this is very expensive and not available in our hospital formulary. Overall, I think it might be best to resume the olanzapine (possibly at half the dose - I have literally no idea whether she requires 20 mg nor can she tell me anything about other dose trials) to minimize risk of nkechi relapse until she can establish outpatient follow-up and records can be assembled to guide informed decisions about alternate treatment options that could then be put into place with deliberation and without necessarily interrupting treatment. Psych History Identifying Data SCOOBY RIBEIRO is a 62-year-old woman with a history of bipolar disorder, admitted on 01/21/2023 for hyponatremia. Consult is by the hospitalist service for "psy drugs Mx; S/Es - hyponatremia, dystonia". Chief Complaint "Can I go on Wellbutrin". History of Present Illness 62 y/o woman who tells me she has bipolar disorder and that her PCP has been managing her medications since her psychiatrist left practice. She presented to the ED with AMS and hyponatremia. Her psychiatric medications were stopped, possibly due to dystonia. Those medications appear to have consisted of escitalopram 20 mg daily, olanzapine 20 mg daily, and benztropine 1 mg daily. Pt gives me a clearly unreliable medication history (for example, says she's taking "Celexa and Lexapro" when she likely means "Zyprexa and Lexapro", or that "Remeron gave me tardive dyskinesia" when she likely means risperidone) and is unable say how long she's been on her current regimen. Denies any previous medication trials, but when asked about lithium says "that turned me into a rubber band" and that quetiapine made her too sleepy. Much of what she reports is entirely plausible, such as attributing sedation or weight gain to her medication (though it's far more likely that olanzapine is responsible for these than escitalopram). She "heard somewhere that Wellbutrin will make you lose weight" so would like to go in, though she isn't able to say any other reason for taking it. She seems to endorse a history of panic (for which escitalopram would likely be helpful, but not bupropion). In general, pt endorses nearly every possible psychiatric symptom I mention and is unwilling to risk every potential side effect I mention. The water intoxication appears to have resulted from her belief that drinking copious water would help her lose weight. She's taking a weight loss supplement with numerous ingredients (metals, vitamins, herbs, roots) about which she knows practically nothing apart from that "it's all natural!" and presumes it is therefore incapable of harming her. Past Psychiatric History Previous Psych History: appears to have been in outpatient treatment for possible bipolar disorder Current Psychiatric Diagnosis: ?bipolar disorder, possibly panic disorder Previous Psych Admissions: pt denies History of Previous Suicide Attempt: Yes ("took too much medication years ago", seems uncertain if this was suicidal ) Past Medication Trials: possibly (but by no means clear) past trials of lithium, quetiapine, and risperidone, conceivably citalopram Allergies Allergy/AdvReac Type Severity Reaction Status Date / Time trazodone Allergy Severe TACHYCARDIC Verified 06/22/18 23:23 Penicillins Allergy Unknown . Verified 10/16/22 22:42 Sulfa (Sulfonamide Allergy Unknown "SULFA Verified 10/16/22 22:42 Antibiotics) DRUGS" codeine AdvReac Unknown GI UPSET Verified 06/22/18 23:23 morphine AdvReac Unknown Verified 01/22/23 00:42 Home Medications Medication Instructions Recorded Confirmed Type benztropine 1 mg tablet 1 mg PO QPM 06/22/18 01/21/23 History escitalopram oxalate 20 mg tablet 20 mg PO QPM 06/22/18 01/21/23 History olanzapine 20 mg tablet 20 mg PO QPM 06/22/18 01/21/23 History Patient History Medical History (Updated 01/22/23 @ 23:41 by Abhishek Henriquez MD) Alcohol abuse Benzodiazepine abuse Benzodiazepine withdrawal with complication Bipolar disorder Cellulitis Dental infection DVT (deep venous thrombosis) Epigastric pain Facial cellulitis H pylori ulcer Hypokalemia Irritable bowel syndrome Leg pain, right Mild neurocognitive disorder Muscular aches Nausea Neurocognitive disorder Nicotine abuse Palpitations Pharyngitis Psychogenic movement disorder Seizure-like activity Sore throat Surgical History History of cholecystectomy Family History Other No significant family history Social History Smoking Status: Current every day smoker Tobacco Type: Cigarettes Cigarettes Per Day: 3 cigarettes per day; Second Hand Exposure: No; Do You Dip or Chew Tobacco: No; Tobacco Cessation Education Requested by Patient: No Hx Alcohol Use: No Hx Substance Use: No Preferred Language: Cantonese [place] Communication Ability: Effective Cloud Administrator Required: No Beliefs That Will Affect Care: None marital status: Current Living Situation: Alone current occupational status: disabled Other Information That Helps Us Care for You: No Feels Safe at Home: Yes Safety Concerns: Feels Safe At This Time Assistive Devices: None Physical Exam Psychiatric: Orientation: alert, oriented to person, oriented to place, oriented to time and cooperative Apperance: appropriately dressed and appropriately groomed Eye Contact: good eye contact Motor Behavior: + EPS (some orobuccolingual dyskinesia and repetitive leg movements) Speech: normal rate/rhythm/volume of speech Affect: euthymic affect Mood: no depressed mood and no anxious mood Thought Process: + circumstantial thought process, + tangential thought process and + concrete thought process Thought Content: + preoccupation (making medication changes); no delusions Suicidal Thoughts: denies suicidal thoughts Homicidal Thoughts: denies homicidal thoughts Hallucinations: no auditory hallucinations and no visual hallucinations Cognition: attention grossly intact; + recent memory not intact and + remote memory not intact Estimated Intelligence: + below average estimated intelligence Insight: + impaired insight Judgment: + impaired judgement Vital Signs (Past 24 Hours): Last Vital Signs Temp 37.0 C 01/22/23 15:00 Pulse 90 01/22/23 15:00 Resp 16 01/22/23 15:00 BP 129/65 01/22/23 15:00 Pulse Ox 99 01/22/23 15:00 O2 Del Method Room Air 01/22/23 15:00 Exam Statement: A physical exam was performed in the ED and another by the admitting hospitalist for the purposes of medical clearance. I accept those physicals as correct and adequate for the purposes of the inpatient physical exam. Review of Systems endorses every item asked Coding Level of Care Code 91860 IN/OBS CONSULT LVL 5,80M Diagnoses Bipolar disorder F31.9 Time Spent (min) 91
[2023-01-22] MEDS ORDERED: BENZTROPINE MESYLATE 1 MG TAB PO SCH (21:00)
[2023-01-22] MEDS: ACETAMINOPHEN 325 MG TAB PO PRN (21:08)
--- NOTE | 2023-01-22 21:41 | Electrocardiogram Report ---
Test Reason : Blood Pressure : / mmHG Vent. Rate : 090 BPM Atrial Rate : 090 BPM P-R Int : 164 ms QRS Dur : 080 ms QT Int : 320 ms P-R-T Axes : 061 021 037 degrees QTc Int : 391 ms Normal sinus rhythm Normal ECG When compared with ECG of 22-JUN-2018 22:35, No significant change was found Confirmed by José Miguel Leyva ([id number]) on 01/22/2023 9:41:15 PM Referred By: REFERRED SELF Confirmed By:José Miguel Leyva
--- NOTE | 2023-01-23 05:57 | Electrocardiogram Report ---
Test Reason : Blood Pressure : / mmHG Vent. Rate : 077 BPM Atrial Rate : 077 BPM P-R Int : 166 ms QRS Dur : 076 ms QT Int : 390 ms P-R-T Axes : 069 014 012 degrees QTc Int : 441 ms Normal sinus rhythm Possible Left atrial enlargement Borderline ECG When compared with ECG of 21-JAN-2023 14:11, No significant change was found Confirmed by José Miguel Leyva ([id number]) on 01/23/2023 5:57:15 AM Referred By: REFERRED SELF Confirmed By:José Miguel Leyva
[2023-01-23 06:49] LABS: Hemoglobin 14.4 g/dl (12.0-16.0); Mean Corpuscular Hemoglobin 29.9 pg (25.0-34.0); Mean Corpuscular Hgb Conc 34.3 g/dL (32.0-36.0); Mean Corpuscular Volume 87.1 fL (80.0-100.0); Mean Platelet Volume 12.8 fL (9.4-12.4); Platelet Count 129 K/uL (130-400); RDW Coefficient of Variation 13.2 % (11.5-14.5); RDW Standard Deviation 41.9 fL (36.4-46.3); Red Blood Count 4.82 M/uL (4.20-5.40); White Blood Count 6.14 K/ul (4.8-10.8)
[2023-01-23 07:11] LABS: Albumin Level 3.5 gm/dl (3.4-5.0); BUN Creatinine Ratio 18.8 (10-20); Bilirubin Direct 0.2 mg/dl (0-0.2); Bilirubin,Total 0.9 mg/dl (0.2-1.0); Calcium 8.4 mg/dl (8.6-10.3); Creatinine Clr Calc Pharmacy 87.9 ml/min; Est GFR (African American) 106.6 ml/min; Magnesium 2.1 mg/dl (1.7-2.4); Phosphorus 2.9 mg/dl (2.5-4.9); Potassium 4.1 mmol/L (3.5-5.1); Total Protein 6.3 gm/dl (6.0-8.3)
--- NOTE | 2023-01-23 10:37 | Nephrology Progress Note ---
Date of Service January 23, 2023 Assessment & Plan Admission and Anticipated Discharge Date Admission Date: January 21, 2023 Subjective Assessment & Plan (1) Acute hyponatremia: (2) AMS (altered mental status): Patient had classic water intoxication which essentially means she drank incredible amount of water in a very short period Of time essentially overwhelming the fluid and electrolyte regulation system. We do not have any recent blood work to compare. In such situations serum sodium can drop very fast and this can be very dangerous even fatal. Her acute mental status change is absolutely consistent with this. Also in this acute drop in serum sodium it is acceptable to have a fast correction of sodium. The standard recommendation of slow correction is more for chronic hyponatremia related with SIADH. With normal sodium her mental status is completely back to baseline. I did try to explain to the patient that she cannot drink such massive amount of fluid in such a short period of time and this can be fatal. Fortunately she did not have acute seizure with rapid drop in her blood sodium. Her urine osmolarity as well as clinical picture is absolutely consistent with this situation. No further diagnostic work-up is needed. na is normal now. as long as she does not drink massive amount of water/liquid very short period of time she will not have problem S--No new issues. Psych did see her yesterday Physical Exam Physical Exam: Awake alert oriented x3. Normal speech Constitutional: No respiratory distress ENMT: Mucous membrane is moist Neck: Neck is supple no JVD Respiratory: Bilateral clear to auscultate Cardiovascular: Regular rate and rhythm no murmur Gastrointestinal (Abdomen): Soft nontender Skin: No rashes noted Results & Data Vital Signs (Past 12 Hours) Vital Signs Temp Pulse Pulse Resp BP Pulse Ox O2 Del Method 01/23/23 08:07 36.8 C 89 18 136/88 97 Room Air 01/23/23 03:00 36.7 C 68 16 132/72 96 Room Air 01/23/23 00:48 74 01/22/23 23:00 36.7 C 74 18 135/78 92 Room Air
[2023-01-23] MEDS ORDERED: ESCITALOPRAM OXALATE 20 MG TAB PO SCH ×2 (10:45→21:00)
[2023-01-23] MEDS: ACETAMINOPHEN 325 MG TAB PO PRN (12:05)
--- NOTE | 2023-01-23 13:26 | Discharge Summary ---
Date of Service January 23, 2023 Admission HPI Per Admitting Provider Patient is 62 y/o F with PMH bipolar disorder, GERD presented to ER with her son for AMS, and lip smacking. History obtained from patient and patient's son. Patients son states that he did not see her yesterday but that patient's ex- spoke to patient on phone last night and reported patient seemed at baseline mental status when talking on phone last night. Patient's son states that patient with poor short-term memory that he has noted been a problem for the past year. He also has noted intermittent lipsmacking type movements of patient's mouth for the past year. He states today when he picked patient up to go to [place] she had noted increased lipsmacking type movements and had a empty diet Coke bottle that she was continuingly trying to drink out of. Patient states she felt like she was SOB this morning, Denies CP. Per patient's son states that he dropped her off at [employer] and when he picked her up an hour later she had increased confusion. Son states that he took her home and gave her a piece of toast. He states in a 2-hour time span she drank 10 bottles of water. It is reported upon ER arrival patient very confused and agitated. It is reported that patient had noted lipsmacking and was repeatedly trying to drink out of empty cup. Patient was given total 75 mg IV Benadryl without improvement then given Ativan 0.5 mg IV. During ER course patient with reported less lipsmacking and has become calm and more alert. Patient reports that she has been on Cogentin, Lexapro, and Zyprexa for years and denies any recent medication changes. States follows with PCP and does not see psychiatrist. States while in ER has been urinating a lot and had 2-3 episodes of incontinence. Denies fever/chills, diaphoresis, [place], dizziness, syncope, vision changes, neck pain, CP, orthopnea, palpitations, cough, sore throat, rhinorrhea, abdominal pain, paresthesias, extremity weakness, extremity edema, rashes, dysuria, hematuria. Denies drug or ETOH use. Admission Exam Per Admitting Provider General: +lip smacking type mouth movements no apparent distress, overweight Head: normocephalic, atraumatic Eyes: PERRL, EOM's intact, conjunctiva non-injected, anicteric ENT: normal inspection external ears, nose, mucous membranes moist Neck: supple, trachea midline Lungs: clear, no respiratory distress, no wheezing/rhonchi/rales CV: RRR, no murmur, no JVD, no pretibial edema Abd: normal BS, soft, non-tender Ext: no cyanosis, no calf tenderness Neuro: A&O x 3 at this time, +lip smacking, no other focal deficits noted, nor mal affect Skin: warm, dry Principal Diagnosis Acute hyponatremia Metabolic encephalopathy History of elevated LFTs, hepatitis C positive Dystonic drug reactions History of bipolar disorder Discharge Exam GENERAL: Alert and oriented x3. NAD, on RA. HEENT: No pallor, no icterus. Pupils equal, round and reactive to light. Oral mucosa moist. NECK: No JVD, no neck masses. HEART: S1 and S2 heard. Regular rate and rhythm. No murmur, no gallop. RESPIRATORY SYSTEM: Normal AP diameter. No accessory muscle use. No wheezing, no crackles. ABDOMEN: Soft, bowel sounds present, nontender, no distention. CENTRAL NERVOUS SYSTEM: No facial droop. Speech is clear. Obeys simple commands. Moves extremities. EXTREMITIES: No edema, no erythema seen. Discharge Data Allergies Allergy/AdvReac Type Severity Reaction Status Date / Time trazodone Allergy Severe TACHYCARDIC Verified 06/22/18 23:23 Penicillins Allergy Unknown . Verified 10/16/22 22:42 Sulfa (Sulfonamide Allergy Unknown "SULFA Verified 10/16/22 22:42 Antibiotics) DRUGS" codeine AdvReac Unknown GI UPSET Verified 06/22/18 23:23 morphine AdvReac Unknown Verified 01/22/23 00:42 Consultations 01/21/23 17:55 ED Decision to Admit Stat 01/21/23 20:59 Consult Nephrology Routine 01/22/23 08:14 Consult Psychiatry Routine Ordered Studies 01/21/23 13:44 CT head/brain wo con Stat 01/21/23 15:23 CT Abd and Pelvis [CT abd pelvis IV con only] Stat 01/21/23 18:10 US RUQ [US liver] Stat 01/22/23 00:39 MR MRCP Stat Hospital Course (1) AMS (altered mental status): (2) Acute hyponatremia: Plan 62 y/o F with PMH of bipolar disorder, GERD presented to ER 01/21 with her son for AMS, and lip smacking. Drank 10 bottles water w/in 2 hrs time prior to arrival. Reported confused upon ER arrival. She was managed for the following: Metabolic encephalopathy: Likely secondary to acute hyponatremia. Utox neg at presentation. Acute hyponatremia: Admitting sodium of 123/serum osmolality 254/urine osmolality 72, likely acute drop secondary to excessive free water intake. Mentation back to baseline, patient reports improvement in her headache and lip smacking. Na level has been stable. Nephro has evaled, appreciate recs. Maintain p.o. fluid intake restriction of around 2 L a day. Pt and her son has been made aware. Increase blood lactic acid level: Lactate 2.4 at presentation, down trended to normal. WBC was elevated at presentation (normalized next day) but UA and CXR unremarkable at presentation. Procalcitonin was negative. Patient afebrile. Resolved. Hypomagnesemia: Admitting magnesium of 1.3, monitor and replete. Dystonic drug reaction: Lipsmacking reported for past year, noted to be worse on the day of arrival. DDX: Tardive dyskinesia from medications In ER given IV Benadryl, Ativan with reported decreased symptoms Monitor Psychiatry consulted for help with medications management. Appreicate recs. Olanzipine has been reduced in half at 10 mg daily. Pt to establish w/ psychiatry on Discharge. Elevated LFTs: At presentation -- T bili: 1.7, AST: 105, ALT: 130, Alk phos: 92 Patient denies abdominal pain Admitting CT abd/pelvis: Distended bladder. This likely accounts for the mild bilateral hydroureteronephrosis. No bowel wall thickening or obstruction. Normal appendix. Prior cholecystectomy. This likely accounts for the bile duct prominence. Moderate hiatus hernia. US RUQ without choledocholithiasis. MRCP with CBD 9 mm, likely reservoir effect due to cholecystectomy status. Has h/o Hep C, pt to f/u w/ [employer] for eval/Rx. Pt has been made aware. Morbid obesity: BMI: 36. Lifestyle modifications recommended. DVT Prophylaxis: SCDs Full Code Follows with Dr El for routine care Patient is being discharged to home with family support with following instruction at the point of discharge: Follow-up with your primary care physician within a week time and likely you will need labs CBC/CMP/magnesium/phosphorus. Limit fluid intake to about 2 L/day. You have been evaluated by psychiatry, your current benztropine and escitalopram continues. Your prior home olanzapine dose has been cut down in half. It is recommended that you establish with psychiatry and maintain follow-up, coordinate with your PCP office for referral. Establish and Follow-up with hepatology for your history of chronic hepatitis C for treatment. Take your medications as prescribed. Please make sure that you are able to get your medications today by calling your pharmacy before you leave the hospital so that your treatment continuity is not broken. Home Health Attestation I certify that this patient is under my care and that I, or a physicians assistant media planner working with me, had a face to-face encounter that meets the home health [id number] encounter requirements with this patient. The encounter with the patient was in whole, or in part, for the following medical condition, which is the primary reason for home health care (list medical condition): I certify that, based on my findings, the following services are medically necessary home health services: My clinical findings support the need for the above services because: Further, I certify that my clinical findings support that this patient is homebound (i.e. absences from home require considerable and taxing effort and are for medical reasons or confucianist services or infrequently or of short duration when for other reasons) because: Certification for Home Health Services: Based on the above findings, I certify that this patient is confined to the home and needs intermittent retirement care, physical therapy and/or speech therapy or continues to need occupational therapy. The patient is under my care, and I have initiated the establishment of the plan of care. This patient will be followed by a physician who will periodically review the plan of care. Total Time Total Time Spent Total Time Spent (In Minutes): 45 Discharge Plan Discharge Items Patient Disposition: Home - Self-Care Reason For Visit: HYPONATREMIA, ACUTE METAB ENCEPHALOPATHY, HYPOMAG Discharge Diagnosis: Acute hyponatremia Metabolic encephalopathy History of elevated LFTs, hepatitis C positive Dystonic drug reactions History of bipolar disorder Activity: Resume your previous activity Non-emergency contact: Primary Care Provider Call non-emergency contact if: you have any medication questions, your symptoms worsen and your temperature is above 101 Follow-up/Referrals: Bradley El MD [Primary Care Provider] - (Date & Time 01/30/2023 11:00 AM Provider Bradley El MD Department [facility] ) Diet: Regular Fluids: 2000ml (8 cups) Addtl Attending Provider Instructions: Follow-up with your primary care physician within a week time and likely you will need labs CBC/CMP/magnesium/phosphorus. Limit fluid intake to about 2 L/day. You have been evaluated by psychiatry, your current benztropine and escitalopram continues. Your prior home olanzapine dose has been cut down in half. It is recommended that you establish with psychiatry and maintain follow-up, coordinate with your PCP office for referral. Establish and Follow-up with hepatology for your history of chronic hepatitis C for treatment. Take your medications as prescribed. Please make sure that you are able to get your medications today by calling your pharmacy before you leave the hospital so that your treatment continuity is not broken. Pending Studies at Discharge: No Stand-Alone Forms: My [facility], Work/School Release, Smoking Cessation Medications and DC Order Prescriptions: New olanzapine 10 mg Tablet 10 mg PO QPM Qty: 30 0RF Continued benztropine 1 mg tablet 1 mg PO QPM Changed escitalopram oxalate 20 mg tablet 20 mg PO QAM Qty: 30 0RF Discontinued olanzapine 20 mg tablet 20 mg PO QPM Discharge Orders: Discharge Order (Routine); Ordered 01/23/23 Ordered By: Felipe Bardales Admission Data Admit Date/Time: 01/21/23 18:05 Attending Provider: eFlipe Bardales Admit Provider: Amy Martinez Primary Care Provider: Bradley El Other Providers: Amy Martinez ; Traci Lee ; Alina Christianson ; May Romeo ; Abhishek Henriquez
[2023-01-23] MEDS ORDERED: OLANZapine 10 MG TAB PO SCH (21:00)
== END 2023-01-23 16:36 | disposition home or self-care (01) | DRG 640 ==
LOC: ED 13:20 → SUATTDRO 18:05 → 2E 18:05
DX: T43.595A Adverse effect of other antipsychotics and neuroleptics, initial encounter; E87.79 Other fluid overload; Z79.899 Other long term (current) drug therapy; G24.09 Other drug induced dystonia; E83.42 Hypomagnesemia; Z88.0 Allergy status to penicillin; F31.9 Bipolar disorder, unspecified; F17.210 Nicotine dependence, cigarettes, uncomplicated; Z88.8 Allergy status to other drugs, medicaments and biological substances; T43.225A Adverse effect of selective serotonin reuptake inhibitors, initial encounter; E87.1 Hypo-osmolality and hyponatremia; Z90.49 Acquired absence of other specified parts of digestive tract; K44.9 Diaphragmatic hernia without obstruction or gangrene; G93.41 Metabolic encephalopathy; Z88.2 Allergy status to sulfonamides; E66.01 Morbid (severe) obesity due to excess calories; Z88.5 Allergy status to narcotic agent; Z68.36 Body mass index [BMI] 36.0-36.9, adult